=== PATIENT | male | born 1955 | race Caucasian/White ===

== ENCOUNTER 2023-02-19 19:54 | Inpatient (IN) | payer MEDICARE, MEDICAID, SELFPAY ==
[2023-02-19] VITALS (7 sets, daily range): BP systolic 158–194; BP diastolic 85–104; PULSE 96–117; RESP 22–24; TEMP 37.1; O2SAT 95–100; BMI 24.7
--- NOTE | 2023-02-19 20:20 | XRR_ITS ---
PROCEDURE INFORMATION: Exam: XR Chest Exam date and time: 02/19/2023 8:30 PM Age: 67 years old Clinical indication: Other: Weakness; Additional info: Cough TECHNIQUE: Imaging protocol: Radiologic exam of the chest. Views: 1 view. COMPARISON: 1. CR XR chest 1V [id number] 08/22/2016 1:[address] Cervical Spine wo* [id number] 06/05/2017 8:51 PM FINDINGS: Tubes, catheters and devices: There is a fixation wire in the posterior elements of the cervical spine. Lungs: Stable calcified granuloma in the right lower lobe. Lungs are clear bilaterally. Pleural spaces: No pleural effusion. No pneumothorax. Heart/Mediastinum: Stable mild enlargement of the cardiac silhouette. Mediastinal contours are unremarkable. Bones/joints: Degenerative changes in the spine and shoulders. Bones are diffusely osteopenic. Osseous findings are stable. XR/XR chest 1V portable [id number] IMPRESSION: 1. No acute cardiopulmonary process. 2. Incidental/nonacute findings are listed in the report.
--- NOTE | 2023-02-19 20:23 | W.ED.FALL ---
HPI - Fall General: Chief Complaint: Fall Stated Complaint: WEAKNESS Time Seen by Provider: 02/19/23 20:20 History of Present Illness: 67-year-old male presents emergency department after falling several times at home in the last 36 hours. EMS personnel state they came out to the house several times after being called by the patient's who has MS. EMS personnel state that the house is very unkept and the patient this evening was laying on the floor covered in feces. Patient does appear to be significantly unkept and malodorous. He is refusing to answer questions at present. Patient states that he does not want to talk to anyone. He has not refused to allow us to care for him at present. Review of Systems General: Reports: ROS unobtainable due to medical condition Physical Exam Narrative: EXAM NARRATIVE: Constitutional: Ill-appearing, unkept, malodorous, covered in feces. No acute distress at present. Alert and oriented-to person, place, time and situation. Head, eyes, ears, nose, mouth, throat: Normocephalic, atraumatic. Pupils-equal, round, reactive to light. No scleral icterus. Normal-appearing external ears. Normal appearing nasal turbinates, no drainage. No obvious oral lesions, posterior oropharynx without erythema or exudates. Neck: Supple, trachea is midline, no lymphadenopathy, no jugular venous distension, thyromegaly, or carotid bruits. Carotid upstrokes are brisk bilaterally. Lungs: clear to auscultation to all lung samano. Symmetrical rise and fall of chest, no obvious signs of increased work of breathing at present. Cardiac: Regular rate and rhythm, positive S1, S2. No murmurs, rubs or gallops that I can appreciate Abdomen: Soft, non-tender to palpation, normal active bowel sounds to all quadrants. No palpable masses, no organomegaly and abdominal bruits. Extremities: 2+ pulses in the upper extremities that are equal bilaterally, 2+ pulses in the lower extremities that are equal bilaterally. Non-edematous. Moves all extremities well, sensation to all extremities are noted. Skin: Warm, dry, intact. Course Vital Signs: Vital signs: Vital Signs Temperature 98.8 F 02/19/23 19:59 Pulse Rate 115 H 02/19/23 21:50 Respiratory Rate 23 H 02/19/23 21:50 Blood Pressure 173/100 02/19/23 21:50 Pulse Oximetry 97 02/19/23 21:50 Oxygen Delivery Me thod Room Air 02/19/23 21:50 MDM - Fall Medical Decision Making Physical exam completed and documented, I will obtain a CBC, CMP, CPK, cardiac enzymes, twelve-lead EKG a chest x-ray and urinalysis for evaluation. Lab Data I reviewed the patient's lab results. 02/19/23 20:50 02/19/23 20:50 Radiology Impressions Chest X-Ray 02/19/23 20:20 IMPRESSION: 1. No acute cardiopulmonary process. 2. Incidental/nonacute findings are listed in the report. Laboratory Results WBC 8.42 10^3/uL (3.29-11.43) 02/19/23 20:50 RBC 3.76 10^6/uL (3.85-5.65) L 02/19/23 20:50 Hgb 13.40 g/dL (11.27-16.99) 02/19/23 20:50 Hct 37.4 % (37-53) 02/19/23 20:50 MCV 99.5 fl (82-101) 02/19/23 20:50 MCH 35.6 pg (27-33) H 02/19/23 20:50 MCHC 35.8 g/dL (30-55) 02/19/23 20:50 RDW 12.2 % (12.1-15.1) 02/19/23 20:50 Plt Count 207 10^3/cmm (157-399) 02/19/23 20:50 MPV 8.8 fL (7.4-10.4) 02/19/23 20:50 Neut % (Auto) 81.0 % 02/19/23 20:50 Lymph % (Auto) 10.2 % 02/19/23 20:50 [place] % (Auto) 8.3 % 02/19/23 20:50 Eos % (Auto) 0.0 % 02/19/23 20:50 Baso % (Auto) 0.1 % 02/19/23 20:50 Neut # (Auto) 6.82 10^3/uL (1.8-7.7) 02/19/23 20:50 Lymph # (Auto) 0.9 10^3/uL (0.8-4.8) 02/19/23 20:50 [place] # (Auto) 0.7 10^3/uL (0.2-0.9) 02/19/23 20:50 Eos # (Auto) 0.0 10^3/uL (0.0-0.8) 02/19/23 20:50 Baso # (Auto) 0.0 10^3/uL (0.0-0.1) 02/19/23 20:50 Nucleated RBC % (auto) 0 % 02/19/23 20:50 Nucleated RBCs # 0.0 /100WBC 02/19/23 20:50 PT 13.40 SECONDS (12.1-14.9) 02/19/23 20:50 INR 0.99 (0.8-1.2) 02/19/23 20:50 APTT 26.3 SECONDS (23.9-36.7) 02/19/23 20:50 D-Dimer 1.99 ug/mLFEU (0-0.59) H 02/19/23 20:50 Sodium 126 mmol/L (136-145) L 02/19/23 20:50 Potassium 4.4 mmol/L (3.5-5.1) 02/19/23 20:50 Chloride 86 mmol/L (98-107) L 02/19/23 20:50 Carbon Dioxide 23 mmol/L (22-29) 02/19/23 20:50 Anion Gap 21.4 (5-19) H 02/19/23 20:50 BUN 17 mg/dL (8-23) 02/19/23 20:50 Creatinine 0.5 mg/dL (0.7-1.2) L 02/19/23 20:50 GFR Calculation 166.9 mL/min (90-130) H 02/19/23 20:50 Glucose 87 mg/dL (65-115) 02/19/23 20:50 POC Glucose 113 mg/dL (70-110) H 02/19/23 21:33 Calculated Osmolality 263 mOsm/kg (285-295) L 02/19/23 20:50 Lactic Acid 2.5 mmol/L (0.5-2.2) H 02/19/23 20:50 Calcium 9.0 mg/dL (8.5-10.5) 02/19/23 20:50 Magnesium 2.0 mg/dL (1.7-2.3) 02/19/23 20:50 Total Bilirubin 1.1 mg/dL (0.15-1.2) 02/19/23 20:50 AST 311 U/L (0-40) H 02/19/23 20:50 ALT 113 U/L (0-41) H 02/19/23 20:50 Alkaline Phosphatase 66 U/L (40-130) 02/19/23 20:50 Creatine Kinase 7145 U/L (39-308) H* 02/19/23 20:50 Troponin T Baseline 60 ng/L (0-15) H 02/19/23 20:50 NT-Pro-B Natriuret Pep 1631 pg/mL (0-125) H 02/19/23 20:50 Total Protein 6.5 g/dL (6.6-8.7) L 02/19/23 20:50 Albumin 3.9 g/dL (3.5-5.2) 02/19/23 20:50 Globulin 2.6 g/dL (1.3-4.6) 02/19/23 20:50 Procalcitonin 0.25 ng/mL (0-0.5) 02/19/23 20:50 Urine Color Dark yellow (Yellow) 02/19/23 21:35 Urine Appearance Hazy (CLEAR) A 02/19/23 21:35 Urine pH 5 (5-7) 02/19/23 21:35 Ur Specific [place] 1.015 (1.005-1.030) 02/19/23 21:35 Urine Protein Trace (Negative) 02/19/23 21:35 Urine Glucose (UA) Norm (Normal) 02/19/23 21:35 Urine Ketones 2+ (Negative) H 02/19/23 21:35 Urine Blood 2+ (Negative) H 02/19/23 21:35 Urine Nitrate Negative (Negative) 02/19/23 21:35 Urine Bilirubin 1+ (Negative) H 02/19/23 21:35 Urine Urobilinogen 1 mg/dL (Negative) H 02/19/23 21:35 Ur Leukocyte Esterase 2+ (Negative) H 02/19/23 21:35 Urine RBC 5-10 /hpf (0-2) H 02/19/23 21:35 Urine WBC 10-15 /hpf (0-5) H 02/19/23 21:35 Ur Squamous Epith Cells 0-4 /hpf (0-5) H 02/19/23 21:35 Amorphous Sediment Not Reportable 02/19/23 21:35 Urine Bacteria 1+ /hpf (NONE) H 02/19/23 21:35 Hyaline Casts Rare /lpf 02/19/23 21:35 Urine Mucus 2+ /hpf 02/19/23 21:35 All radiology interpretation(s) finalized by discharge Critical Care Time Critical Care Time: Critical Care Time: Yes Total Critical Care Time: 45 Attestation: This case had a high probability of a clinically significant, sudden, or life threatening deterioration of this patient's condition which required my full and direct attention, intervention and personal management. Discharge Plan Discharge Patient Disposition: Admitted As Inpatient Clinical Impression: Rhabdomyolysis, Acute hyponatremia, Adult failure to thrive, Acute UTI Condition: Stable Coding Level of Care Code ED Outsoles Channel Opener for [place] Alfaro
[2023-02-19 21:03] LABS: Basophils % 0.1 %; Hematocrit 37.4 % (37-53); Lymphocytes # 0.9 10^3/uL (0.8-4.8); Lymphocytes % 10.2 %; Mean Corpuscular HGB Conc 35.8 g/dL (30-55); Mean Corpuscular Hemoglobin 35.6 pg (27-33); Mean Corpuscular Volume 99.5 fl (82-101); Mean Platelet Volume 8.8 fL (7.4-10.4); Monocytes # 0.7 10^3/uL (0.2-0.9); Monocytes % 8.3 %; Neutrophils # 6.82 10^3/uL (1.8-7.7); Nucleated Red Blood Cells % 0 %; Platelet Count 207 10^3/cmm (157-399); Red Blood Count 3.76 10^6/uL (3.85-5.65); Red Cell Distribution Width 12.2 % (12.1-15.1); White Blood Count 8.42 10^3/uL (3.29-11.43)
[2023-02-19] MEDS: lactated ringers 1,000 ML 999 ML IV (21:08)
[2023-02-19 21:16] LABS: INR 0.99 (0.8-1.2); Partial Thromboplastin Time 26.3 SECONDS (23.9-36.7)
[2023-02-19 21:21] LABS: Lactic Sepsis W/Reflex 2.5 mmol/L (0.5-2.2)
--- NOTE | 2023-02-19 21:23 | ECG_ITS ---
[facility] Test Date: 2023-02-19 Pat Name: Barrett Leahy Department: Room: Gender: Male [place]: : 1955 Requested By: Eb Romero Order Number: [id number] Vinayak MD: Dejon Kruse M.D. Measurements Intervals [place] Rate: 107 P: 48 MN: 170 QRS: -2 QRSD: 93 T: 42 QT: 363 QTc: 486 Interpretive Statements Significant baseline artifact. SINUS TACHYCARDIA Compared to ECG 08/22/2016 13:49:37 Heart rate has increased Electronically Signed On 02-20-2023 16:58:34 MASS SPEC by Dejon Kruse M.D. [id number]
[2023-02-19 21:28] LABS: Troponin(5th) Baseline 60 ng/L (0-15)
[2023-02-19 21:35] LABS: NT Pro B Type Natriuretic Pept 1631 pg/mL (0-125); Procalcitonin 0.25 ng/mL (0-0.5)
[2023-02-19 21:37] LABS: Glucose Point of Care 113 mg/dL (70-110)
--- NOTE | 2023-02-19 21:43 | PM.HP ---
Providers/Chief Complaint Chief Complaint: WEAKNESS History of Present Illness Barrett Leahy is a 67 year old male who presents today with recurrent falls, patient is not a good historian cannot able to provide much history because he is not very cooperative, stating that he was trying to help his but he did not have any strength to walk he has been fallingQuite frequently, he drinks multiple cans of beer every day, last drink was today before he came to the ER,He has not noticed chest pain, nausea, vomiting endorsing symptoms of UTI, he has not noticed any fever, endorsing weakness lethargy and fatigue. He smokes on daily basis as well. He was on the floor for about 2 hours. In the ER he was diagnosed with hyponatremia, rhabdomyolysis, UTI, tachycardia dehydration Patient was covered in feces as per the EMS, house condition was very poor, Review of Systems Const: Reports: chills and change in weight Eyes: Denies: change in vision ENMT: Denies: throat pain Card: Denies: chest pain Resp: Denies: dyspnea GI: Denies: abdominal pain : Denies: flank pain Musc: Reports: back pain; Denies: neck pain Skin/Breast: Reports: rash and skin tenderness Neuro: Reports: frequent falls; Denies: headache(s) Medications/Allergies Allergies Allergy/AdvReac Type Severity Reaction Status Date / Time No Known Allergies Allergy Verified 02/19/23 20:05 Vitals/I&O/Wt Last Vital Signs Temp 98.8 F 02/19/23 19:59 Pulse 116 H 02/19/23 21:29 Resp 22 H 02/19/23 21:29 BP 175/88 02/19/23 21:29 Pulse Ox 95 02/19/23 21:29 O2 Del Method Room Air 02/19/23 21:29 Weight last 48 hrs Weight 85.275 kg Physical Exam Narrative: Unkept appearance GCS 15 Multiple skin ulcers Patient seems to have ischemic changes to bilateral lower extremities, cold, nonpurulent cellulitis, swelling Patient is awake and alert Able to tell me name, date of and name of the president, he knows he is in the hospital Mild tremors No new focal deficit Abdomen soft Does have old Tachycardia Dehydrated Data 02/19/23 20:50 02/19/23 20:50 A&P Assessment and plan (1) Acute hyponatremia: (2) Adult failure to thrive: (3) Rhabdomyolysis: (4) Acute UTI: (5) Alcohol abuse: Plan Alcohol abuse Start phenobarbital thiamine and folic acid Patient is alert and oriented Start thiamine and folic acid Multiple falls likely related to neuropathy: We will request physical therapy We will also request arterial duplex He does seem to have peripheral vascular disease changes Start aspirin and atorvastatin. Nonfocal neuro exam Check B12 and TSH Rhabdomyolysis: Start IV fluids check CPK in the morning Check drug screen Beer potomania Alcohol-related hyponatremia Currently getting IV fluids Monitor sodium Check serum and urine osmolarity Tachycardia likely due to dehydration Check D-dimer Patient was covered in feces Home conditions were very poor has multiple sclerosis Patient is stating that he is DNR/DNI he is awake alert seems to have capacity to make decision UTI requested on culture, start ceftriaxone Regular diet DVT prophylaxis on board Admit to ICU Check alcohol level Attestations Medical Necessity Statement*: More than 2 midnights anticipated Diagnoses Acute hyponatremia E87.1 Adult failure to thrive R62.7 Rhabdomyolysis M62.82 Acute UTI N39.0 Alcohol abuse F10.10
[2023-02-19 21:46] LABS: Alanine Aminotransferase 113 U/L (0-41); Albumin Level 3.9 g/dL (3.5-5.2); Alkaline Phosphatase 66 U/L (40-130); Anion Gap 21.4 (5-19); Aspartate Amino Transferase 311 U/L (0-40); Blood Urea Nitrogen 17 mg/dL (8-23); Carbon Dioxide 23 mmol/L (22-29); Chloride 86 mmol/L (98-107); Globulin 2.6 g/dL (1.3-4.6); Glomerular Filtration Rate 166.9 mL/min (90-130); Glucose 87 mg/dL (65-115); Osmolality Calculated 263 mOsm/kg (285-295); Potassium 4.4 mmol/L (3.5-5.1); Sodium 126 mmol/L (136-145); Total Bilirubin 1.1 mg/dL (0.15-1.2); Total Protein 6.5 g/dL (6.6-8.7)
[2023-02-19 21:58] LABS: D Dimer 1.99 ug/mLFEU (0-0.59)
[2023-02-19 22:01] LABS: Creatine Phosphokinase 7145 U/L (39-308)
[2023-02-19 22:09] LABS: Add Urine Microscopic? YES; Bilirubin Urine 1+ (Negative); Blood Urine 2+ (Negative); Glucose Urine UA Norm (Normal); Ketones Urine 2+ (Negative); Leukocyte Esterase Urine 2+ (Negative); Nitrate Urine Negative (Negative); Protein Urine Trace (Negative); Specific Gravity, Urine 1.015 (1.005-1.030); Urine Appearance Hazy (CLEAR); Urine Color Dark Yellow (Yellow); Urobilinogen Urine 1 mg/dL (Negative); pH Urine 5 (5-7)
[2023-02-19 22:11] LABS: Bacteria Urine 1+ /hpf; Hyaline Casts Urine RARE /lpf; Mucus Urine 2+ /hpf; Squamous Epithelial Cell Urine 0-4 /hpf (0-5)
[2023-02-19 22:12] LABS: Add Urine Culture? Yes
[2023-02-19] MEDS: sodium chloride 0.9% 1,000 ML 999 ML IV (22:12)
--- NOTE | 2023-02-19 22:16 | PC.NURSE ---
Patient arrived to ED by EMS. Patient clothing is saturated with stool, dirt and other containments. Patient has had recent bowel movement in pants. Hair is matted and unkept. Patient is able to move extremities however is difficult to move and appears contractured. Patient has sores over various places of her body including feet, back, buttocks, and scrotum. Scrotum is red and inflammed. Patient has wound in various sizes and stages of healing. Patient nails are unkept and appear to have fecal matter under his nails. Patient is poor historian to his current condition and evades questioning about conditions at home. Reports he lives with girlfriend however she has MS. 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 Registration reported friends dropped clothing off (one pair of shorts) and stated they were not staying. It is unknown when patient has last been up walking or moved. Patient states he could not recall this information. It is unknown condition of the house or who is caring for this individual or his girlfriend.
--- NOTE | 2023-02-19 22:22 | ECG_ITS ---
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 Measurements Intervals [place] Rate: 109 P: 53 TX: 162 QRS: 8 QRSD: 102 T: 59 QT: 358 QTc: 482 Interpretive Statements SINUS TACHYCARDIA intermittent PVCs MINIMAL VOLTAGE CRITERIA FOR LVH, CONSIDER NORMAL VARIANT [MEETS CRITERIA IN SEPTAL MYOCARDIAL INFARCTION , PROBABLY OLD [40+ ms Q WAVE IN V1/V2] Compared to ECG 02/19/2023 21:23:24 PVCs now present Electronically Signed On 02-20-2023 17:17:45 ADMITTING SUPERVISOR by Dejon Kruse M.D. [email or web address].[employer]/store/[id number]
[2023-02-19 22:46] LABS: Reflex Lactate Order REFLEX LACTIC ORDERD
--- NOTE | 2023-02-19 23:02 | PC.NURSE ---
Neglect report has been filed. [id number]
[2023-02-19] MEDS: cefTRIAXone 1,000 MG in sodium chloride 0.9% (plus) 50 ML 100 MG IV (23:08)
[2023-02-19 23:09] LABS: Amphetamines Screen Urine Negative (Negative); Barbiturates Screen Urine Negative (Negative); Benzodiazepines Screen Urine Negative (Negative); Cocaine Screen Urine Negative (Negative); Opiate Screen Urine Negative (Negative); PCP Screen Urine Negative (Negative); THC Screen Urine Positive (Negative)
[2023-02-19 23:50] LABS: Troponin 5 2HR 64.14 ng/L (0-15)
[2023-02-19 23:51] LABS: Lactic Acid level (Lactate) 1.5 mmol/L (0.5-2.2)
[2023-02-19 23:52] LABS: Troponin 5 2HR Delta 4.14 ABS# (0-10)
[2023-02-20] VITALS (97 sets, daily range): BP systolic 104–211; BP diastolic 55–176; PULSE 77–120; RESP 13–29; TEMP 36.6–36.9; O2SAT 65–100; BMI 24.5
[2023-02-20 00:31] LABS: Vitamin B12 282 pg/mL (232-1245)
--- NOTE | 2023-02-20 00:37 | USCV_ITS ---
Barrett Leahy Age: 67 Gender: M : 1955 Exam Date: 02/20/2023 01:54 Ordering Phys: Jayna Baird MD Technologist: SATYA Exam Location: [facility] [place] Indication: cold extremity. Bilateral, badly infected legs with multiple open sores. Patient is confused, shaking constantly in ICU-2 Risk Factors: unknown Previous Vascular Surgery: unknown RIGHT LEFT BP: 164.0 / 100.00 BP: 190.0/ 146.00 0 0 Waveform Velocity (cm/s) Velocity (cm/s) Waveform Triphasic 156.9 Iliac Prox 158.8 Triphasic Triphasic 149.1 Iliac Mid 172.9 Triphasic Triphasic 172.5 Iliac Distal 134.7 Triphasic Biphasic 199.0 JIG MILL OPERATOR 149.1 Triphasic Biphasic 138.0 SFA Prox 158.8 Biphasic Biphasic 177.1 SFA Mid 160.8 Biphasic Biphasic 119.6 SFA Dist 142.8 Biphasic Biphasic 167.8 POP 148.8 Biphasic Biphasic 124.3 PSYCHOLOGIST PERSONNEL 108.6 Biphasic Biphasic 68.4 DPA 1.0 SARAH 1.0 FINDINGS Moderate heterogenous plaques in the right mid to distal SFA and mild to moderate plaques at the left mid to distal SFA. Resting SARAH 1.0 on both sides. No Doppler flow signals in the left dorsalis pedis CONCLUSIONS 1. Normal resting ABIs bilaterally, suggesting no significant arterial obstruction. 2. Moderate heterogenous plaques in the mid and distal SFA bilaterally 3. Possible occlusion of the dorsalis pedis artery on the left side. No similar previous studies are available for comparison Dr Lon Benítez MD [facility] (Electronically Signed) Final Date: 20 February 2023 15:05 S
[2023-02-20 01:07] LABS: Glucose Point of Care 96 mg/dL (70-110)
[2023-02-20] MEDS: enoxaparin 40 mg/0.4 mL Syringe SUBCUT (01:20)
[2023-02-20] MEDS: sodium chloride 0.9% 1,000 ML 100 ML IV ×2 (01:57→17:04)
[2023-02-20 02:28] LABS: Basophils % 0.1 %; Hematocrit 34.1 % (37-53); Lymphocytes # 1.3 10^3/uL (0.8-4.8); Lymphocytes % 16.7 %; Mean Corpuscular HGB Conc 34.9 g/dL (30-55); Mean Corpuscular Hemoglobin 35.3 pg (27-33); Mean Corpuscular Volume 101.2 fl (82-101); Mean Platelet Volume 8.6 fL (7.4-10.4); Monocytes # 0.8 10^3/uL (0.2-0.9); Monocytes % 10.3 %; Neutrophils # 5.71 10^3/uL (1.8-7.7); Neutrophils % 72.6 %; Nucleated Red Blood Cells % 0 %; Platelet Count 156 10^3/cmm (157-399); Red Blood Count 3.37 10^6/uL (3.85-5.65); Red Cell Distribution Width 12.5 % (12.1-15.1); White Blood Count 7.86 10^3/uL (3.29-11.43)
[2023-02-20] MEDS: vancomycin 2,000 MG/400 ML PIGGYBACK 200 MG IV (02:39)
[2023-02-20 02:53] LABS: Troponin 5 6HR 74.83 ng/L (0-15)
[2023-02-20 02:55] LABS: Troponin 5 6HR Delta 14.83 ng/L (0-12)
[2023-02-20] MEDS: hyDRALAzine 20 mg/mL INJ 1 mL (04:00)
[2023-02-20 08:20] LABS: Alanine Aminotransferase 101 U/L (0-41); Albumin Level 3.3 g/dL (3.5-5.2); Alkaline Phosphatase 56 U/L (40-130); Aspartate Amino Transferase 273 U/L (0-40); Blood Urea Nitrogen 16 mg/dL (8-23); Calcium 8.7 mg/dL (8.5-10.5); Carbon Dioxide 21 mmol/L (22-29); Chloride 91 mmol/L (98-107); Globulin 2.7 g/dL (1.3-4.6); Glomerular Filtration Rate 166.9 mL/min (90-130); Glucose 94 mg/dL (65-115); Magnesium 1.9 mg/dL (1.7-2.3); Osmolality Calculated 267 mOsm/kg (285-295); Phosphorus 2.4 mg/dL (2.5-4.5); Sodium 128 mmol/L (136-145); Thyroid Stimulating Hormone 2.35 uIU/mL (0.27-4.20); Total Bilirubin 0.9 mg/dL (0.15-1.2); Vitamin B12 289 pg/mL (232-1245)
[2023-02-20 08:28] LABS: Estmated Average Glucose 85; Hemoglobin A1C 4.6 % (4.0-6.0)
[2023-02-20] MEDS: folic acid 1 mg Tablet PO (08:29)
[2023-02-20] MEDS: sennosides-docusate Tablet 1 TAB PO (08:29)
[2023-02-20] MEDS: PHENobarbital 32.4 mg Tablet 97.2 MG PO ×2 (08:29→15:06)
[2023-02-20] MEDS: thiamine 100 mg Tablet PO (08:29)
--- NOTE | 2023-02-20 09:03 | PC.PHAR ---
Addendum entered by Anjelica Davies 02/20/23 09:04: no meds pull up on ext med history Original Note: pt states he takes care of his own medications-pt states he takes no prescription medications pt states only takes otc ibuprofen prn-pt unsure of what pharmacy he would use told pt about meds to beds pt still unsure what pharmacy
[2023-02-20 09:04] LABS: Anion Gap 20.3 (5-19); Potassium 4.3 mmol/L (3.5-5.1)
[2023-02-20 09:40] LABS: Partial Thromboplastin Time 51.1 SECONDS (23.9-36.7)
[2023-02-20] MEDS: heparin drip 25,000 UNIT/500 ML PREMIX 24 UNIT IV (11:41)
--- NOTE | 2023-02-20 16:26 | P.PN_ITS ---
Subjective 2 Subjective: Overnight labs and H&P reviewed. Patient extremely disheveled. He is alert awake oriented. Overall appears to be malnourished and dehydrated. Arterial duplex without any significant occlusion. Medications: Reviewed: Yes Vitals/I&O/Wt Last Vital Signs Temp 98 F 02/20/23 00:30 Pulse 99 02/20/23 16:15 Resp 21 H 02/20/23 12:00 BP 169/78 02/20/23 16:15 Pulse Ox 93 02/20/23 16:15 O2 Del Method Room Air 02/20/23 00:45 02/20/23 02/20/23 02/20/23 06:59 14:59 22:59 Intake Total 2450 / 2450 480 / 480 Balance 2450 / 2450 480 / 480 Weight last 48 hrs Weight 89 kg Weight 85.275 kg Physical Exam 2 Narrative: General: No acute distress, AO x3 HEENT: PERRLA, pupils bilaterally equal and reactive, pallors not present Chest: Normal vesicular breath sounds, no added sounds, equal good air entry bilaterally CVS: S1-S2 regular, no murmurs, no tachycardia, no gallops, no rubs Abdomen: Soft, nontender, no organomegaly, bowel sounds present Neuro: No focal deficits, no facial deformity, AO x3, power 5/5 in all limbs Data 02/21/23 04:45 02/20/23 16:52 Other Labs: Date of Service: 02/20/23 Procedure(s): [place] [id number] CONCLUSIONS 1. Normal resting ABIs bilaterally, suggesting no significant arterial obstruction. 2. Moderate heterogenous plaques in the mid and distal SFA bilaterally 3. Possible occlusion of the dorsalis pedis artery on the left side. No similar previous studies are available for comparison Micro: Microbiology 02/20/23 01:51 Gram Stain - Final Groin A&P Assessment and plan (1) Acute hyponatremia: (2) Adult failure to thrive: (3) Rhabdomyolysis: (4) Acute UTI: (5) Alcohol abuse: Plan # Multiple falls of unclear nature Not syncopal episodes Patients states symptoms started one week ago with increasing weakness CPk elevated suggesting rhabdomyolysis B/L LE multipel small ulcers which may represent small vessel vasculitis vs small vessel PAD. Arterial duplex with normal SARAH B/L, left dorsal pedis possible occlusion Monitor for signs of gangrene TSH 2.3 WNL, low normal B12 # Cellilitis, right foot noted to be swollen and erythematous Check blood cx d/c Ceftriaxone start zosyn and vancomycin empirically monitor for improvement # dorsalis pedis occlusion continue heparin drip for now # Rhabdomyolysis: continue IV fluids drug screen + marijuana # monitor for alcohol withdrawal Ciwa monitoring Tachycardia likely due to dehydration Check D-dimer # Patient was covered in feces Home conditions were very poor has multiple sclerosis # UTI requested on culture, zosyn and vancomycinto cover Regular diet DVT prophylaxis : on heparin drip Attestations 2 Medical Necessity Statement*: iv abx, blood cx , CIWA monitoring Coding Level of Care Code Acute Code for [facility] Diagnoses Acute hyponatremia E87.1 Adult failure to thrive R62.7 Rhabdomyolysis M62.82 Acute UTI N39.0 Alcohol abuse F10.10
[2023-02-20] MEDS: piperacillin-tazobactam 3.375 GM in sodium chloride 0.9% (plus) 50 ML IV (16:44)
[2023-02-20 17:19] LABS: Partial Thromboplastin Time 45.7 SECONDS (23.9-36.7)
[2023-02-20 17:23] LABS: Alanine Aminotransferase 109 U/L (0-41); Albumin Level 3.3 g/dL (3.5-5.2); Alkaline Phosphatase 53 U/L (40-130); Anion Gap 13.1 (5-19); Aspartate Amino Transferase 262 U/L (0-40); Blood Urea Nitrogen 13 mg/dL (8-23); Calcium 8.4 mg/dL (8.5-10.5); Carbon Dioxide 27 mmol/L (22-29); Chloride 94 mmol/L (98-107); Globulin 2.6 g/dL (1.3-4.6); Glomerular Filtration Rate 135.2 mL/min (90-130); Glucose 134 mg/dL (65-115); Osmolality Calculated 274 mOsm/kg (285-295); Potassium 3.1 mmol/L (3.5-5.1); Sodium 131 mmol/L (136-145); Total Bilirubin 0.8 mg/dL (0.15-1.2); Total Protein 5.9 g/dL (6.6-8.7)
[2023-02-20 18:19] LABS: Adenovirus Not Detected (NOT DETECT); Chlamydia Pneumoniae Not Detected (NOT DETECT); Coronavirus 229E,HKU1,NL63,OC4 Not Detected (NOT DETECT); Human Metapneumovirus Not Detected (NOT DETECT); Human Rhinovirus/Enterovirus Not Detected (NOT DETECT); Influenza A Not Detected (NOT DETECT); Influenza A H1 Not Detected (NOT DETECT); Influenza A H1-2009 Not Detected (NOT DETECT); Influenza A H3 Not Detected (NOT DETECT); Influenza B Not Detected (NOT DETECT); Mycoplasma Pneumoniae Not Detected (NOT DETECT); Parainfluenza Virus Type 1 Not Detected (NOT DETECT); Parainfluenza Virus Type 2 Not Detected (NOT DETECT); Parainfluenza Virus Type 3 Not Detected (NOT DETECT); Parainfluenza Virus Type 4 Not Detected (NOT DETECT); Respiratory Syncytial Virus A Not Detected (NOT DETECT); Respiratory Syncytial Virus B Not Detected (NOT DETECT); SARS-COV-2 Not Detected (NOT DETECT)
[2023-02-20] MEDS: vancomycin 1,250 MG/250 ML PIGGYBACK 200 MG IV (22:02)
--- NOTE | 2023-02-20 23:07 | PC.NURSE ---
Physician Communication Patient currently receiving heparin IV while lovenox SUBQ order still active. Furthermore, patient's blood pressure remaining elevated ranging from 170-196 systolic, 66-[address] Baird contacted and orders received for the following: discontinue lovenox order, start 20 mg lisinopril PO daily now as well as start 10 mg amlodipine PO daily now. See MAR for details. Additionally, wound care orders not active. Orders received from Dr. Baird to leave open to air until further notice.
[2023-02-20 23:22] LABS: Partial Thromboplastin Time 61.6 SECONDS (23.9-36.7)
[2023-02-20 23:24] LABS: Glucose Point of Care 122 mg/dL (70-110)
[2023-02-20] MEDS: lisinopril 20 mg Tablet PO (23:36)
[2023-02-20] MEDS: amlodipine 10 mg Tablet PO (23:36)
[2023-02-21] VITALS (59 sets, daily range): BP systolic 110–183; BP diastolic 60–125; PULSE 81–107; RESP 14–55; TEMP 36.2–37.1; O2SAT 69–100; BMI 24.5
[2023-02-21] MEDS: piperacillin-tazobactam 3.375 GM in sodium chloride 0.9% (plus) 50 ML IV ×3 (00:31→17:09)
--- NOTE | 2023-02-21 00:37 | USCV_ITS ---
Barrett Leahy Age: 67 Gender: M : 1955 Exam Date: 02/21/2023 08:21 Ordering Phys: Jayna Baird MD Technologist: Dewey Urbano [place] [facility] [place]: NSTEMI BP: 170 / 99 HR: 85 Rhythm: Sinus Technical Quality: Adequate MEASUREMENTS (Male / Female) Normal Values 2D ECHO LV Diastolic Diameter PLAX 3.5 cm 4.2 - 5.9 / 3.9 - 5.3 cm LV Systolic Diameter PLAX 2.3 cm IVS Diastolic Thickness 1.5 cm 0.6 - 1.0 / 0.6 - 0.9 cm IVS Systolic Thickness 1.8 cm LVPW Diastolic Thickness 1.3 cm 0.6 - 1.0 / 0.6 - 0.9 cm LVPW Systolic Thickness 1.8 cm LVOT Diameter 2.0 cm LV Ejection Fraction 2D Teich 66.1 % LV Ejection Fraction MOD 2C 62.3 % LV Ejection Fraction 2C AL 64.0 % LA Diameter 3.5 cm IVC Diameter 1.6 cm M-MODE Aortic Annulus Diameter 3.4 cm LA Ao Ratio MM 1.2 MV E Point Septal Separation 1.0 cm DOPPLER AV Peak Velocity 281.0 cm/s LVOT Peak Velocity 98.0 cm/s AV Area Cont Eq vti 1.4 cm squared AV Area Cont Eq pk 1.1 cm squared MV Area PHT 3.2 cm squared Mitral E to A Ratio 0.8 MV E' Velocity 39.0 cm/s Mitral E to MV E' Ratio 11.9 Mitral E to LV E' Lateral Ratio 10.7 Mitral E to LV E' Septal Ratio 13.7 TR Peak Velocity 160.0 cm/s TR Peak Gradient 10.2 mmHg TV Peak E Velocity 110.0 cm/s Right Atrial Pressure 3.0 mmHg Pulmonary Artery Systolic Pressu 13.2 mmHg FINDINGS Left Ventricle Mild left ventricular hypertrophy. Normal left ventricular size, systolic function and wall thickness, with no regional wall motion abnormalities. Left ventricular ejection fraction is estimated at 65%. Grade 1 diastolic dysfunction. Right Ventricle Normal right ventricular size and systolic function. Right Atrium Normal right atrial size. Left Atrium Normal left atrial size. Mitral Valve Thickened mitral valve. Trace mitral valve regurgitation. Aortic Valve Thickened aortic valve. Aortic valve sclerosis. No aortic valve stenosis. Mild aortic regurgitation. Tricuspid Valve Structurally normal tricuspid valve. Trace tricuspid valve regurgitation. Pulmonic Valve Structurally normal pulmonic valve. Trace pulmonary valve regurgitation. Pericardium No pericardial effusion. Aorta Normal size aortic root and proximal ascending aorta. IVC Normal IVC dimension with >50% respiratory change of the inferior vena cava. CONCLUSIONS Mild concentric LVH. Normal LV systolic function. Estimated LVEF normal 65%. Normal chamber sizes. Thickened sclerotic aortic valve, however no significant stenosis (mean AVPG 15 mmHg). Mild aortic regurgitation Normal right heart and pulmonary pressures. Dejon Kruse MD (Electronically Signed) Final Date: 21 February 2023 12:31 S
[2023-02-21] MEDS: heparin drip 25,000 UNIT/500 ML PREMIX 26 UNIT IV (02:30)
--- NOTE | 2023-02-21 02:50 | PC.NURSE ---
Nicotene Patch, Glies Patient found to have incontinent episode, linens soaked in urine and unable to be measured. Additionally, patient requesting nicotene patch. Dr. Baird contacted; orders received for a one time dose nicotene patch as well as to place a giles catheter.
[2023-02-21] MEDS: sodium chloride 0.9% 1,000 ML 100 ML IV ×2 (03:24→13:15)
[2023-02-21] MEDS: nicotine 14 mg Patch 1 PATCH TRANSDERMA (03:30)
[2023-02-21] MEDS: vancomycin 1,250 MG/250 ML PIGGYBACK 200 MG IV ×3 (05:58→21:19)
[2023-02-21 06:00] LABS: Basophils % 0.2 %; Eosinophils % 0.2 %; Hematocrit 32.7 % (37-53); Lymphocytes # 1.1 10^3/uL (0.8-4.8); Lymphocytes % 19.8 %; Mean Corpuscular HGB Conc 33.9 g/dL (30-55); Mean Corpuscular Hemoglobin 35.4 pg (27-33); Mean Corpuscular Volume 104.1 fl (82-101); Mean Platelet Volume 8.7 fL (7.4-10.4); Monocytes # 0.5 10^3/uL (0.2-0.9); Neutrophils # 4.09 10^3/uL (1.8-7.7); Neutrophils % 71.5 %; Nucleated Red Blood Cells % 0 %; Platelet Count 129 10^3/cmm (157-399); Red Blood Count 3.14 10^6/uL (3.85-5.65); Red Cell Distribution Width 12.6 % (12.1-15.1); White Blood Count 5.72 10^3/uL (3.29-11.43)
[2023-02-21 06:11] LABS: Partial Thromboplastin Time 61.6 SECONDS (23.9-36.7)
--- NOTE | 2023-02-21 09:11 | PC.SOCIAL ---
IMM Update Pg.2 of IMM Updated and reviewed with patient. Copy provided to patient, initialed and dated copy in chart.
[2023-02-21] MEDS: amlodipine 10 mg Tablet PO (10:20)
[2023-02-21] MEDS: folic acid 1 mg Tablet PO (10:20)
[2023-02-21] MEDS: multivitamin therapeutic Tablet 1 TAB PO (10:21)
[2023-02-21] MEDS: thiamine 100 mg Tablet PO (10:21)
[2023-02-21] MEDS: sennosides-docusate Tablet 1 TAB PO (10:22)
[2023-02-21] MEDS: lisinopril 20 mg Tablet PO (10:22)
--- NOTE | 2023-02-21 12:59 | PC.NURSE ---
0700 Bedside report from Negrita done, worklist not checked off., She was giving po med at time of bedside report.
[2023-02-21 15:31] LABS: Partial Thromboplastin Time 48.1 SECONDS (23.9-36.7)
--- NOTE | 2023-02-21 18:02 | USCV_ITS ---
Barrett Leahy Age: 67 Gender: M : 1955 Exam Date: 02/21/2023 18:30 Ordering Phys: Melodie Glover MD Technologist: SATYA Exam Location: [facility] – [place] Indication: BLE edema and ulcerations. No history of DVT per patient. HISTORY: BLE edema and ulcerations. No history of DVT per patient. PROCEDURES: Venous duplex imaging was performed in bilateral lower extremities. The following venous structures were evaluated: common femoral vein, profunda vein, proximal portion of the greater saphenous vein, superficial femoral vein, and the popliteal vein. In addition, the posterior tibial veins were evaluated. Serial compression, augmentation maneuvers, and spectral Doppler flow evaluation were performed, which were normal. Bilaterally, the common femoral, superficial femoral, profunda femoral, popliteal, posterior tibial, and greater saphenous veins were identified and interrogated in the standard fashion. These veins were found to be easily compressible with spontaneous blood flow. No evidence of thrombus noted. CONCLUSIONS No evidence of right lower extremity DVT. No evidence of left lower extremity DVT. Walter Posadas MD (Electronically Signed) Final Date: 22 February 2023 09:35 S
--- NOTE | 2023-02-21 18:17 | P.PN_ITS ---
Subjective 2 Subjective: no acute interim events, pending cx Medications: Reviewed: Yes Vitals/I&O/Wt Last Vital Signs Temp 98.7 F 02/21/23 16:00 Pulse 100 02/21/23 18:00 Resp 14 02/21/23 18:00 BP 127/61 02/21/23 18:00 Pulse Ox 95 02/21/23 18:00 O2 Del Method Room Air 02/21/23 01:15 02/21/23 02/21/23 02/21/23 06:59 14:59 22:59 Intake Total 1765.883 / 3828.800 1735 / 1735 180 / 1915 Output Total 875 / 1000 350 / 350 300 / 650 Balance 890.883 / 2828.800 1385 / 1385 -120 / 1265 Weight last 48 hrs Weight 89 kg Weight 89 kg Weight 85.275 kg Physical Exam 2 Narrative: General: No acute distress, AO x3 HEENT: PERRLA, pupils bilaterally equal and reactive, pallors not present Chest: Normal vesicular breath sounds, no added sounds, equal good air entry bilaterally CVS: S1-S2 regular, no murmurs, no tachycardia, no gallops, no rubs Abdomen: Soft, nontender, no organomegaly, bowel sounds present Neuro: No focal deficits, no facial deformity, AO x3, power 5/5 in all limbs Data 02/22/23 02:50 02/21/23 23:48 Micro: Microbiology 02/20/23 16:52 Blood Culture - Preliminary Blood NEGATIVE TO DATE 02/20/23 16:42 Blood Culture - Preliminary Blood NEGATIVE TO DATE 02/20/23 01:51 Gram Stain - Final Groin Wound Culture - Preliminary 02/19/23 21:35 Urine Culture - Final Urine,Clean Catch A&P Assessment and plan (1) Acute hyponatremia: (2) Adult failure to thrive: (3) Rhabdomyolysis: (4) Acute UTI: (5) Alcohol abuse: Plan # Multiple falls of unclear nature Not syncopal episodes Patients states symptoms started one week ago with increasing weakness CPk elevated suggesting rhabdomyolysis B/L LE multipel small ulcers which may represent small vessel vasculitis vs small vessel PAD. Arterial duplex with normal SARAH B/L, left dorsal pedis possible occlusion Monitor for signs of gangrene TSH 2.3 WNL, low normal B12 # Cellilitis, right foot noted to be swollen and erythematous Check blood cx continue zosyn and vancomycin empirically monitor for improvement # dorsalis pedis occlusion continue heparin drip for now # Rhabdomyolysis: continue IV fluids drug screen + marijuana # monitor for alcohol withdrawal Ciwa monitoring Tachycardia likely due to dehydration Check D-dimer # Patient was covered in feces Home conditions were very poor has multiple sclerosis # UTI requested on culture, zosyn and vancomycinto cover Regular diet DVT prophylaxis : on heparin drip Attestations 2 Medical Necessity Statement*: continue heparin drip and iv abx Coding Level of Care Code Acute Code for [facility] Fw Diagnoses Acute hyponatremia E87.1 Adult failure to thrive R62.7 Rhabdomyolysis M62.82 Acute UTI N39.0 Alcohol abuse F10.10
[2023-02-21] MEDS: potassium chloride ER 20 mEq Tablet 40 MEQ PO (20:35)
[2023-02-21 20:52] LABS: Vancomycin Trough 18.8 ug/mL (10-15)
[2023-02-22] VITALS (13 sets, daily range): BP systolic 147–180; BP diastolic 71–106; PULSE 73–109; RESP 14–20; TEMP 36.3–36.4; O2SAT 90–100
[2023-02-22 00:20] LABS: Alanine Aminotransferase 95 U/L (0-41); Albumin Level 3.1 g/dL (3.5-5.2); Alkaline Phosphatase 67 U/L (40-130); Anion Gap 14.2 (5-19); Aspartate Amino Transferase 171 U/L (0-40); Blood Urea Nitrogen 9 mg/dL (8-23); Calcium 8.2 mg/dL (8.5-10.5); Carbon Dioxide 25 mmol/L (22-29); Chloride 97 mmol/L (98-107); Globulin 2.7 g/dL (1.3-4.6); Glomerular Filtration Rate 215.9 mL/min (90-130); Glucose 103 mg/dL (65-115); Osmolality Calculated 275 mOsm/kg (285-295); Potassium 3.2 mmol/L (3.5-5.1); Sodium 133 mmol/L (136-145); Total Bilirubin 0.6 mg/dL (0.15-1.2); Total Protein 5.8 g/dL (6.6-8.7)
[2023-02-22] MEDS: sodium chloride 0.9% 1,000 ML 100 ML IV ×3 (00:34→22:10)
[2023-02-22] MEDS: piperacillin-tazobactam 3.375 GM in sodium chloride 0.9% (plus) 50 ML IV ×3 (00:34→17:24)
[2023-02-22 00:39] LABS: Creatine Phosphokinase 2414 U/L (39-308)
[2023-02-22 03:45] LABS: Basophils % 0.2 %; Eosinophils % 0.2 %; Hematocrit 31.5 % (37-53); Lymphocytes # 0.8 10^3/uL (0.8-4.8); Lymphocytes % 15.9 %; Mean Corpuscular Hemoglobin 35.5 pg (27-33); Mean Corpuscular Volume 104.7 fl (82-101); Monocytes # 0.5 10^3/uL (0.2-0.9); Monocytes % 10.3 %; Neutrophils # 3.66 10^3/uL (1.8-7.7); Neutrophils % 72.8 %; Nucleated Red Blood Cells % 0 %; Platelet Count 130 10^3/cmm (157-399); Red Blood Count 3.01 10^6/uL (3.85-5.65); Red Cell Distribution Width 12.8 % (12.1-15.1); White Blood Count 5.03 10^3/uL (3.29-11.43)
[2023-02-22] MEDS: acetaminophen 500 mg Tablet PO (03:51)
[2023-02-22] MEDS: vancomycin 1,250 MG/250 ML PIGGYBACK 200 MG IV ×3 (06:32→20:11)
[2023-02-22] MEDS: amlodipine 10 mg Tablet PO (08:55)
[2023-02-22] MEDS: sennosides-docusate Tablet 1 TAB PO (08:55)
[2023-02-22] MEDS: multivitamin therapeutic Tablet 1 TAB PO (08:55)
[2023-02-22] MEDS: thiamine 100 mg Tablet PO (08:55)
[2023-02-22] MEDS: folic acid 1 mg Tablet PO (08:55)
[2023-02-22] MEDS: lisinopril 20 mg Tablet 40 MG PO (08:55)
[2023-02-22 13:40] LABS: COMPLEMENT COMPONENT C3C 86 mg/dL (82-185); COMPLEMENT COMPONENT C4C 14 mg/dL (15-53)
[2023-02-22 16:10] LABS: ANA SCREEN, IFA NEGATIVE (NEGATIVE)
--- NOTE | 2023-02-22 16:56 | PM.PN ---
Subjective Subjective: no acute interim events. BP controlled . d/c heparin drip . worked with PT Medications: Reviewed: Yes Vitals/I&O/Wt Last Vital Signs Temp 97.6 F 02/22/23 08:58 Pulse 87 02/22/23 16:00 Resp 17 02/22/23 11:45 BP 180/77 02/22/23 16:00 Pulse Ox 91 02/22/23 16:00 O2 Del Method Room Air 02/22/23 16:00 02/22/23 02/22/23 02/22/23 06:59 14:59 22:59 Intake Total 1300 / 3505 1740 / 1740 250 / 1990 Output Total 1049 / 1979 925 / 925 Balance 250 / 1525 815 / 815 250 / 1065 Weight last 48 hrs Weight 93 kg Weight 89 kg Physical Exam Narrative: General: No acute distress, AO x3 HEENT: PERRLA, pupils bilaterally equal and reactive, pallors not present Chest: wheezing to ausculotation B/L CVS: S1-S2 regular, no murmurs, no tachycardia, no gallops, no rubs Abdomen: Soft, nontender, no organomegaly, bowel sounds present Neuro: No focal deficits, no facial deformity, AO x3, power 5/5 in all limbs Extremities: Multiple scabs present over lower extremities. Area of developing dry gangrene over left toe. Urinary Catheter Management: Cruz: Cath Placed During This Visit: yes Reason for Continuing Indwelling Catheter: Accurate Measurement of Urinary Output in Critically Ill Patients Urinary Catheter Date of Insertion: 02/21/23 Urinary Catheter Time of Insertion: 20:00 Data 02/22/23 02:50 02/21/23 23:48 Micro: Microbiology 02/20/23 16:52 Blood Culture - Preliminary Blood NEGATIVE TO DATE 02/20/23 16:42 Blood Culture - Preliminary Blood NEGATIVE TO DATE 02/20/23 01:51 Gram Stain - Final Groin Wound Culture - Preliminary A&P Assessment and plan (1) Adult failure to thrive: (2) Rhabdomyolysis: (3) Alcohol abuse: (4) Cellulitis: (5) Gangrene: (6) Multiple falls: Plan # Multiple falls of unclear nature Not syncopal episodes Patients states symptoms started one week ago with increasing weakness, however his given level of deconditioning suspect this has been much longer. He has multiple bruises all over his lower extremities. Some appear to be rug badillo. CPK elevated suggesting rhabdomyolysis B/L LE multiple small ulcers which may represent small vessel vasculitis vs small vessel PAD. Arterial duplex with normal SARAH B/L, left dorsal pedis possible occlusion PT assessment appreciated , total dependence for sit to stand # Cellulitis appears to be improving Right foot was worse than left erythema, warmth improving negative blood cx thus far continue zosyn and vancomycin empirically monitor for improvement d/c heparin drip # dorsalis pedis occlusion likely chronic, monitor for gangrene continue heparin drip # Rhabdomyolysis: continue IVF # monitor for alcohol withdrawal CIWA monitoring Tachycardia likely due to dehydration # possible underlying COPD with diffuse wheezing Patient is a daily smoker. Start DuoNebs every 6 hours as a scheduled medication Add nicotine patch. # UTI: unlikely now, cx with urogenital robyn. Regular diet DVT prophylaxis : on heparin drip Attestations Medical Necessity Statement*: continue iv abx, continued therapy Coding Level of Care Code Acute Code for [facility] Fwd Diagnoses Adult failure to thrive R62.7 Rhabdomyolysis M62.82 Alcohol abuse F10.10 Cellulitis L03.90 Gangrene I96 Multiple falls R29.6
[2023-02-22] MEDS: hyDRALAzine 25 mg Tablet PO ×2 (17:25→20:06)
[2023-02-23] VITALS (9 sets, daily range): BP systolic 142–173; BP diastolic 65–75; PULSE 79–104; RESP 16–19; TEMP 36.6–37.1; O2SAT 92–97
[2023-02-23] MEDS: piperacillin-tazobactam 3.375 GM in sodium chloride 0.9% (plus) 50 ML IV ×3 (00:23→17:41)
[2023-02-23 05:33] LABS: Vancomycin Trough 16.9 ug/mL (10-15)
[2023-02-23] MEDS: vancomycin 1,250 MG/250 ML PIGGYBACK 200 MG IV ×3 (05:54→21:07)
[2023-02-23] MEDS: hyDRALAzine 25 mg Tablet PO ×3 (08:31→21:07)
[2023-02-23] MEDS: lisinopril 20 mg Tablet 40 MG PO (08:31)
[2023-02-23] MEDS: sennosides-docusate Tablet 1 TAB PO (08:31)
[2023-02-23] MEDS: multivitamin therapeutic Tablet 1 TAB PO (08:31)
[2023-02-23] MEDS: acetaminophen 500 mg Tablet PO ×2 (08:31→21:06)
[2023-02-23] MEDS: thiamine 100 mg Tablet PO (08:32)
[2023-02-23] MEDS: folic acid 1 mg Tablet PO (08:32)
[2023-02-23] MEDS: amlodipine 10 mg Tablet PO (08:32)
[2023-02-23 09:00] LABS: THYROID PEROXIDASE ANTIBODIES <1 IU/mL (<9)
--- NOTE | 2023-02-23 12:31 | PC.SOCIAL ---
IMM Update pg 2 of IMM updated and reviewed w/ patient. Copy provided and copy dated, initialed and placed in chart.
[2023-02-23] MEDS: sodium chloride 0.9% 1,000 ML 100 ML IV (15:03)
[2023-02-23 15:14] LABS: COMPLEMENT, TOTAL (CH50) >60 U/mL (31-60)
--- NOTE | 2023-02-23 18:47 | P.PN_ITS ---
Subjective 2 Subjective: Lower extremity cellulitis is improving, however area of what appears to be dry gangrene over toe medially now. Patient did not participate with physical therapy today stating that he does not feel well overall. Developing wheezing on exam Medications: Reviewed: Yes Vitals/I&O/Wt Last Vital Signs Temp 97.8 F 02/23/23 15:29 Pulse 92 02/23/23 15:29 Resp 16 02/23/23 15:29 BP 143/73 02/23/23 15:29 Pulse Ox 93 02/23/23 15:29 O2 Del Method Room Air 02/23/23 15:29 02/23/23 02/23/23 02/23/23 06:59 14:59 22:59 Intake Total 50 / 3580 610 / 610 1540 / 2150 Output Total 700 / 3325 650 / 650 Balance -650 / 255 -40 / -40 1540 / 1500 Weight last 48 hrs Weight 91.989 kg Weight 93 kg Physical Exam 2 Narrative: General: No acute distress, AO x3 HEENT: PERRLA, pupils bilaterally equal and reactive, pallors not present Chest: wheezing to ausculotation B/L CVS: S1-S2 regular, no murmurs, no tachycardia, no gallops, no rubs Abdomen: Soft, nontender, no organomegaly, bowel sounds present Neuro: No focal deficits, no facial deformity, AO x3, power 5/5 in all limbs Extremities: Multiple scabs present over lower extremities. Area of developing dry gangrene over left toe. Urinary Catheter Management: Rcuz: Cath Placed During This Visit: yes Reason for Continuing Indwelling Catheter: Acute Urinary Retention or Obstruction Urinary Catheter Date of Insertion: 02/21/23 Urinary Catheter Time of Insertion: 20:00 Data 02/22/23 02:50 02/21/23 23:48 Micro: Microbiology 02/20/23 01:51 Gram Stain - Final Groin Wound Culture - Preliminary skin robyn A&P Assessment and plan (1) Adult failure to thrive: (2) Rhabdomyolysis: (3) Alcohol abuse: (4) Cellulitis: (5) Gangrene: (6) Multiple falls: Plan # Multiple falls of unclear nature Not syncopal episodes Patients states symptoms started one week ago with increasing weakness, however his given level of deconditioning suspect this has been much longer. He has multiple bruises all over his lower extremities. Some appear to be rug badillo. CPK elevated suggesting rhabdomyolysis B/L LE multiple small ulcers which may represent small vessel vasculitis vs small vessel PAD. Arterial duplex with normal SARAH B/L, left dorsal pedis possible occlusion #Concern for developing small area of gangrene over the left toe. Cellulitis appears to be improving, erythema warmth is better, however foot continues to be swollen. Heparin drip was discontinued yesterday evening. Currently we will resume full dose Lovenox. Obtain podiatry consult. Check left foot x-ray # Cellulitis appears to be improving Right foot was worse than left erythema, warmth improving negative blood cx thus far continue zosyn and vancomycin empirically monitor for improvement # dorsalis pedis occlusion full dose lovenox # Rhabdomyolysis: discontinue IVF today, encourage po intake # monitor for alcohol withdrawal Ciwa monitoring Tachycardia likely due to dehydration Check D-dimer # possible underlying COPD with diffuse wheezing Patient is a daily smoker. Start DuoNebs every 6 hours as a scheduled medication Add nicotine patch. # UTI: unlikely now, cx with urogenital robyn. Regular diet DVT prophylaxis : on heparin drip Attestations 2 Medical Necessity Statement*: monitor for developing gangarene, continue IVF, continue skilled therapy , podiatry consult Coding Level of Care Code Acute Code for [facility] Fwd Diagnoses Adult failure to thrive R62.7 Rhabdomyolysis M62.82 Alcohol abuse F10.10 Cellulitis L03.90 Gangrene I96 Multiple falls R29.6
--- NOTE | 2023-02-23 18:51 | XRR_ITS ---
PROCEDURE INFORMATION: Exam: XR Left Foot Exam date and time: 02/23/2023 8:51 PM Age: 67 years old Clinical indication: Condition or disease; Other: Osteomyelitis; Additional info: Evalaute for osteomyelitis TECHNIQUE: Imaging protocol: Radiologic exam of the left foot. Views: 1 or 2 views. COMPARISON: No relevant prior studies available. FINDINGS: Bones/joints: No acute osseous abnormality. No evidence of acute fracture, dislocation or bony destructive process. Left great toe MTP joint arthrosis and degenerative bony changes. Soft tissues: Nonspecific left foot soft tissue swelling. Vasculature: Diffuse small vessel arterial calcification. XR/XR foot LT 2V [id number] IMPRESSION: 1. No radiographic evidence of osteomyelitis at this time. 2. Nonspecific left foot soft tissue swelling. Differential diagnosis includes soft tissue injury versus inflammation/cellulitis versus fluid overload or venous insufficiency.
[2023-02-23 20:15] LABS: Alanine Aminotransferase 66 U/L (0-41); Albumin Level 2.9 g/dL (3.5-5.2); Alkaline Phosphatase 45 U/L (40-130); Anion Gap 11.9 (5-19); Aspartate Amino Transferase 77 U/L (0-40); Blood Urea Nitrogen 10 mg/dL (8-23); C Reactive Protein 12.8 mg/L (0.0-4.9); Calcium 7.8 mg/dL (8.5-10.5); Carbon Dioxide 24 mmol/L (22-29); Chloride 99 mmol/L (98-107); Globulin 2.3 g/dL (1.3-4.6); Glomerular Filtration Rate 135.2 mL/min (90-130); Glucose 108 mg/dL (65-115); Osmolality Calculated 274 mOsm/kg (285-295); Sodium 132 mmol/L (136-145); Total Bilirubin 0.5 mg/dL (0.15-1.2); Total Protein 5.2 g/dL (6.6-8.7)
[2023-02-23 20:16] LABS: Potassium 2.9 mmol/L (3.5-5.1)
[2023-02-23 20:17] LABS: Creatine Phosphokinase 731 U/L (39-308)
[2023-02-23] MEDS: ipratropium-albuterol 3 mL Neb INHALATION (20:29)
[2023-02-23] MEDS: enoxaparin 100 mg/mL Syringe 90 MG SUBCUT (20:33)
[2023-02-24] VITALS (9 sets, daily range): BP systolic 153–178; BP diastolic 68–74; PULSE 73–106; RESP 15–18; TEMP 36.7–37.6; O2SAT 93–97; BMI 25.3
[2023-02-24] MEDS: piperacillin-tazobactam 3.375 GM in sodium chloride 0.9% (plus) 50 ML IV ×3 (01:17→20:20)
[2023-02-24] MEDS: vancomycin 1,250 MG/250 ML PIGGYBACK 200 MG IV ×3 (04:36→20:20)
[2023-02-24 04:55] LABS: Basophils % 0.4 %; Eosinophils % 0.6 %; Hematocrit 31.8 % (37-53); Lymphocytes # 1.5 10^3/uL (0.8-4.8); Lymphocytes % 27.9 %; Mean Corpuscular Hemoglobin 34.9 pg (27-33); Mean Corpuscular Volume 105.6 fl (82-101); Mean Platelet Volume 8.8 fL (7.4-10.4); Monocytes # 0.7 10^3/uL (0.2-0.9); Monocytes % 11.9 %; Neutrophils % 58.6 %; Nucleated Red Blood Cells % 0 %; Platelet Count 144 10^3/cmm (157-399); Red Blood Count 3.01 10^6/uL (3.85-5.65); Red Cell Distribution Width 13.1 % (12.1-15.1); White Blood Count 5.45 10^3/uL (3.29-11.43)
[2023-02-24] MEDS: enoxaparin 100 mg/mL Syringe 90 MG SUBCUT ×2 (06:33→20:20)
[2023-02-24] MEDS: folic acid 1 mg Tablet PO (08:54)
[2023-02-24] MEDS: multivitamin therapeutic Tablet 1 TAB PO (08:54)
[2023-02-24] MEDS: hyDRALAzine 25 mg Tablet PO ×3 (08:54→20:20)
[2023-02-24] MEDS: amlodipine 10 mg Tablet PO (08:54)
[2023-02-24] MEDS: thiamine 100 mg Tablet PO (08:54)
[2023-02-24] MEDS: lisinopril 20 mg Tablet 40 MG PO (08:54)
[2023-02-24] MEDS: nicotine 21 mg Patch 1 PATCH TRANSDERMA (08:54)
[2023-02-24] MEDS: sennosides-docusate Tablet 1 TAB PO (08:54)
[2023-02-24] MEDS: ipratropium-albuterol 3 mL Neb INHALATION ×3 (10:01→19:59)
--- NOTE | 2023-02-24 15:05 | P.CONIM_ITS ---
Providers/Reason For Consult 2 Consulting Physician/Specialty*: Odell Padilla D.P.M. Reason for Consult*: Arterial insufficiency with wounds bilateral lower extremity Attending Physician: Melodie Glover MD History of Present Illness History of Present Illness Barrett Leahy is a 67 year old nondiabetic male with peripheral arterial disease. Podiatry consulted for evaluation of lower extremity wounds. ABIs have been performed, concern for occlusion of dorsalis pedis artery to the left. Patient endorses intermittent claudication, he cannot walk 1 block without his legs giving way. He has pain in the legs with standing and walking. He smokes, states that due to this hospital admission he would like to discontinue smoking, currently on nicotine patch. No history of revascularization of the lower extremities. He reports longstanding numbness to his feet, states has had a progression of peripheral neuropathy to the point where he does not feel pain at his toes. He was admitted to the hospital service for rhabdomyolysis and UTI. He has adult failure to thrive, hyponatremia, history of significant alcohol abuse and nicotine use. Review of Systems 2 General: Reports: 10 or more systems reviewed and unremarkable except in HPI and below Const: Denies: fever(s) or chills Card: Denies: chest pain or palpitations Resp: Denies: productive cough GI: Denies: abdominal pain, nausea or vomiting : Denies: flank pain Musc: Reports: extremity swelling, joint pain, joint stiffness, limited range of motion and deformity Skin/Breast: Reports: nail changes and change in hair; Denies: rash or sores Neuro: Reports: numbness in extremities, sensory changes and difficulty walking Psych: Denies: suicidal ideation Braydon/Lymph: Denies: easy bruising Medications/Allergies Home Medications Medication Instructions Recorded Confirmed Last Taken Type ibuprofen 200 mg tablet 400 mg PO Q6H PRN Pain 02/20/23 02/20/23 Unknown History Allergies Allergy/AdvReac Type Severity Reaction Status Date / Time No Known Allergies Allergy Verified 02/19/23 20:05 Current Medications Generic Name Dose Route Start Last Admin Trade Name Freq PRN Reason Stop Dose Admin Acetaminophen 500 mg 02/20/23 00:37 02/23/23 21:06 Acetaminophen 500 Mg Tablet PO 500 mg Q4H PRN Administration fever Albuterol/Ipratropium 3 ml 02/23/23 20:00 02/24/23 14:41 Ipratropium-Albuterol 3 Ml Neb INHALATION 3 ml Q6H.RESP GREG Administration Amlodipine Besylate 10 mg 02/20/23 23:15 02/24/23 08:54 Amlodipine 10 Mg Tablet PO 10 mg DAILY GREG Administration Enoxaparin Sodium 90 mg 02/23/23 19:30 02/24/23 06:33 Enoxaparin 100 Mg/Ml Syringe 1 mg/kg (90 mg) 90 mg SUBCUT Administration Q12H GREG Folic Acid 1 mg 02/20/23 09:00 02/24/23 08:54 Folic Acid 1 Mg Tablet PO 1 mg DAILY GREG Administration Hydralazine HCl 25 mg 02/22/23 17:00 02/24/23 08:54 Hydralazine 25 Mg Tablet PO 25 mg TID GREG Administration Piperacillin Sod/Tazobactam 50 mls @ 12.5 mls/hr 02/20/23 17:00 02/24/23 08:53 Sod 3.375 gm/ Sodium Chloride IV 12.5 mls/hr Q8H GREG Administration Protocol As Directed Vancomycin/PEG/NADA/Lysine/Water 1,250 mg in 250 mls @ 200 mls/hr 02/20/23 21:00 02/24/23 05:56 Vancocin IV Infused Q8H GREG Infusion Lisinopril 40 mg 02/22/23 09:00 02/24/23 08:54 Lisinopril 20 Mg Tablet PO 40 mg DAILY GREG Administration Multivitamins Therapeutic 1 tab 02/21/23 09:00 02/24/23 08:54 Multivitamin Therapeutic Tablet PO 1 tab DAILY GREG Administration Nicotine 1 patch 02/24/23 09:00 02/24/23 08:54 Nicotine 21 Mg Patch TRANSDERMA 1 patch DAILY GREG Administration Senna/Docusate Sodium 1 tab 02/20/23 09:00 02/24/23 08:54 Sennosides-Docusate Tablet PO 1 tab DAILY GREG Administration Thiamine Mononitrate 100 mg 02/20/23 09:00 02/24/23 08:54 Thiamine 100 Mg Tablet PO 100 mg DAILY GREG Administration Vitals/I&O/Wt Last Vital Signs Temp 99.7 F H 02/24/23 11:45 Pulse 88 02/24/23 14:44 Resp 18 02/24/23 14:44 BP 153/68 02/24/23 11:45 Pulse Ox 95 02/24/23 14:44 O2 Del Method Room Air 02/24/23 14:44 02/24/23 02/24/23 02/24/23 06:59 14:59 22:59 Intake Total 300 / 3398 720 / 720 Output Total 1125 / 2725 400 / 400 Balance -825 / 673 320 / 320 Weight last 48 hrs Weight 202 lb 12.8 oz Weight 202 lb 12.8 oz Physical Exam 2 Narrative: GENERAL: Patient is alert and oriented ?3 and in no acute distress. The following is a focused bilateral lower extremity exam. VASCULAR: Dorsalis pedis decreased bilaterally. Posterior tibial arteries decreased. Posterior tibial arteries are biphasic with pedal Doppler bilaterally. Monophasic right dorsalis pedis artery, weak monophasic left dorsalis pedis artery with pedal Doppler. Capillary refill time less than 5 seconds to the distal hallux bilaterally. Calf is supple and nontender proximally and distally. Mild pitting edema to the left lower extremity. Dependent rubor to bilateral feet. NEUROLOGICAL: Protective sensation intact 0/10 sites, tested with [place] Sanjuanita monofilament to bilateral feet. DERMATOLOGICAL: Toenails 1, 2, 3, 4, 5 left and right foot are elongated, thickened and discolored with subungual debris. Lower extremity integument is atrophic with decreased texture and turgor, has thin shiny appearance. Grade 1 wound at the left great toe, right great toe and right bunion prominence with rubor, no purulence. MUSCULOSKELETAL: No pain to palpation of the lower extremities secondary to neuropathy. Urinary Catheter Management: Cruz: Cath Placed During This Visit: yes Reason for Continuing Indwelling Catheter: Accurate Measurement of Urinary Output in Critically Ill Patients Urinary Catheter Date of Insertion: 02/21/23 Urinary Catheter Time of Insertion: 20:00 Data 02/25/23 01:56 02/25/23 01:56 Micro: Microbiology 02/20/23 01:51 Gram Stain - Final Groin Wound Culture - Final A&P Assessment and plan (1) Non-pressure chronic ulcer of other part of right foot limited to breakdown of skin: (2) Non-pressure chronic ulcer of other part of left foot limited to breakdown of skin: (3) Rhabdomyolysis: (4) Alcohol abuse: (5) Adult failure to thrive: (6) Peripheral arterial disease: (7) Onychodystrophy: -Toenails 1-5 bilaterally were debrided manually both in thickness and length manually with sterile nail nippers without incident. Plan 67-year-old male admitted for rhabdomyolysis and UTI, was found to have extensive peripheral arterial disease to the lower extremities with wounds at both feet. Wounds are limited to breakdown of skin and clinically stable at this time. Ordered wound care by nursing staff to be performed every other day consisting of silver alginate and silicone bordered foam dressing to left and right great toe. Patient's wounds currently are limited breakdown of skin and have arterial insufficiency appearance. Will refer to vascular surgery, will likely need to go out of [place] due to the distal nature of his arterial occlusion at the dorsalis pedis artery will require vascular surgery that has more specialization of the lower extremities. Discussed need to refer potentially to [facility] and patient is in agreement, in my opinion this referral can be done and he can follow-up with vascular surgery outpatient after this hospitalization. CT angiogram of the abdominal aorta with runoff would be beneficial for vascular surgery as a pertinent workup. No plans for surgical intervention from podiatry standpoint during this hospitalization. Patient okay for discharge from podiatry standpoint to the lower extremity, and would continue with silver alginate dressings every other day with silicone bordered foam. Follow-up with vascular surgery will likely require referral to [facility], I can help facilitate this. Will have him follow-up in podiatry clinic within 2 weeks from hospital discharge for continued management of lower extremity wounds. Consult Attestations 2 Medical Necessity Statement: Peripheral arterial disease with wound Coding Level of Care Code Acute Code for [facility] Fw Diagnoses Non-pressure chronic ulcer of other part of right foot limited to breakdown of skin L97.511 Non-pressure chronic ulcer of other part of left foot limited to breakdown of skin L97.521 Rhabdomyolysis M62.82 Alcohol abuse F10.10 Adult failure to thrive R62.7 Peripheral arterial disease I73.9 Onychodystrophy L60.3
--- NOTE | 2023-02-24 16:14 | P.PN_ITS ---
Subjective 2 Subjective: Tmax 99.1 Fahrenheit overnight. Blood pressure continues to be 160s. Patient states that he is feeling better today. Medications: Reviewed: Yes Vitals/I&O/Wt Last Vital Signs Temp 99.1 F 02/24/23 15:36 Pulse 104 H 02/24/23 15:36 Resp 15 02/24/23 15:36 BP 160/69 02/24/23 15:36 Pulse Ox 95 02/24/23 15:36 O2 Del Method Room Air 02/24/23 15:36 02/24/23 02/24/23 02/24/23 06:59 14:59 22:59 Intake Total 300 / 3398 720 / 720 50 / 770 Output Total 1125 / 2725 400 / 400 Balance -825 / 673 320 / 320 50 / 370 Weight last 48 hrs Weight 91.989 kg Weight 91.989 kg Physical Exam 2 Narrative: General: No acute distress, AO x3 HEENT: PERRLA, pupils bilaterally equal and reactive, pallors not present Chest: Normal vesicular breath sounds, no added sounds, equal good air entry bilaterally CVS: S1-S2 regular, no murmurs, no tachycardia, no gallops, no rubs Abdomen: Soft, nontender, no organomegaly, bowel sounds present Neuro: No focal deficits, no facial deformity, AO x3, power 5/5 in all limbs Urinary Catheter Management: Cruz: Cath Placed During This Visit: yes Reason for Continuing Indwelling Catheter: Accurate Measurement of Urinary Output in Critically Ill Patients Urinary Catheter Date of Insertion: 02/21/23 Urinary Catheter Time of Insertion: 20:00 Data 02/24/23 04:15 02/23/23 19:35 Micro: Microbiology 02/20/23 01:51 Gram Stain - Final Groin Wound Culture - Final A&P Assessment and plan (1) Acute hyponatremia: (2) Adult failure to thrive: (3) Rhabdomyolysis: (4) Acute UTI: (5) Alcohol abuse: Plan # Multiple falls of unclear nature Not syncopal episodes Patients states symptoms started one week ago with increasing weakness, however his given level of deconditioning suspect this has been much longer. He has multiple bruises all over his lower extremities. Some appear to be rug badillo. CPK elevated suggesting rhabdomyolysis B/L LE multiple small ulcers which may represent small vessel vasculitis vs small vessel PAD. Arterial duplex with normal SARAH B/L, left dorsal pedis possible occlusion #Concern for developing small area of gangrene over the left toe. Cellulitis appears to be improving, erythema warmth is better, however foot continues to be swollen. Heparin drip was discontinued yesterday evening. Currently we will resume full dose Lovenox. Obtain podiatry consult. Check left foot x-ray # Cellulitis appears to be improving Right foot was worse than left erythema, warmth improving negative blood cx thus far continue zosyn and vancomycin empirically monitor for improvement # dorsalis pedis occlusion full dose lovenox # Rhabdomyolysis: discontinue IVF today, encourage po intake # monitor for alcohol withdrawal Ciwa monitoring Tachycardia likely due to dehydration Check D-dimer # possible underlying COPD with diffuse wheezing Patient is a daily smoker. Start DuoNebs every 6 hours as a scheduled medication Add nicotine patch. # UTI: unlikely now, cx with urogenital robyn. Plan for today: Awaiting podiatry assessment for concern for developing gangrene over the toe. Continue antibiotics. Titrate blood pressure medications. Starting metoprolol 25 mg p.o. twice daily to help with blood pressure and tachycardia. X-ray of the foot without signs of osteomyelitis. Noted soft tissue edema. Overall cellulitis continues to improve. Attestations 2 Medical Necessity Statement*: Continued need of antibiotics, podiatry assessment today, manage blood pressure and, continued therapy. Coding Level of Care Code Acute Code for [facility] Fwd Diagnoses Acute hyponatremia E87.1 Adult failure to thrive R62.7 Rhabdomyolysis M62.82 Acute UTI N39.0 Alcohol abuse F10.10
[2023-02-24] MEDS: potassium chloride oral liq 20 mEq/15 mL UDC 60 MEQ PO (17:20)
[2023-02-24] MEDS: metoprolol tartrate 25 mg Tablet PO (17:20)
[2023-02-24 17:29] LABS: Alanine Aminotransferase 65 U/L (0-41); Alkaline Phosphatase 49 U/L (40-130); Anion Gap 14.1 (5-19); Aspartate Amino Transferase 71 U/L (0-40); Blood Urea Nitrogen 12 mg/dL (8-23); Calcium 8.1 mg/dL (8.5-10.5); Carbon Dioxide 25 mmol/L (22-29); Chloride 99 mmol/L (98-107); Globulin 2.8 g/dL (1.3-4.6); Glomerular Filtration Rate 135.2 mL/min (90-130); Glucose 136 mg/dL (65-115); Osmolality Calculated 282 mOsm/kg (285-295); Potassium 3.1 mmol/L (3.5-5.1); Sodium 135 mmol/L (136-145); Total Bilirubin 0.5 mg/dL (0.15-1.2); Total Protein 5.8 g/dL (6.6-8.7)
--- NOTE | 2023-02-24 18:39 | PC.NURSE ---
pts niece came to the nurses station, wanted information, stated that the pt didnt give her the correct information. I told her that i would check with the pt. I asked pt if it was ok to give his niece information and he stated i already talked to her. I told him that she was at the nurses station and wanted more information than what he had given her. I asked if he wanted me to give her any more or other information and he stated, no, she doesn't need anymore than what i told her!
[2023-02-24 23:30] LABS: DNA AB (DS) CRITHIDIA,IFA NEGATIVE (NEGATIVE)
[2023-02-25] VITALS (13 sets, daily range): BP systolic 120–154; BP diastolic 57–72; PULSE 70–115; RESP 16–30; TEMP 36.8–37.7; O2SAT 82–98; BMI 25.0
[2023-02-25 02:27] LABS: Basophils % 0.3 %; Eosinophils % 0.3 %; Hematocrit 33.1 % (37-53); Lymphocytes # 1.5 10^3/uL (0.8-4.8); Lymphocytes % 21.2 %; Mean Corpuscular HGB Conc 33.5 g/dL (30-55); Mean Corpuscular Hemoglobin 35.9 pg (27-33); Mean Corpuscular Volume 107.1 fl (82-101); Mean Platelet Volume 8.9 fL (7.4-10.4); Monocytes % 14.1 %; Neutrophils # 4.48 10^3/uL (1.8-7.7); Neutrophils % 63.4 %; Nucleated Red Blood Cells % 0 %; Platelet Count 164 10^3/cmm (157-399); Red Blood Count 3.09 10^6/uL (3.85-5.65); Red Cell Distribution Width 13.2 % (12.1-15.1); White Blood Count 7.07 10^3/uL (3.29-11.43)
[2023-02-25 02:41] LABS: Alanine Aminotransferase 62 U/L (0-41); Albumin Level 3.2 g/dL (3.5-5.2); Alkaline Phosphatase 58 U/L (40-130); Anion Gap 13.4 (5-19); Aspartate Amino Transferase 67 U/L (0-40); Blood Urea Nitrogen 12 mg/dL (8-23); Calcium 8.3 mg/dL (8.5-10.5); Carbon Dioxide 24 mmol/L (22-29); Chloride 102 mmol/L (98-107); Globulin 2.9 g/dL (1.3-4.6); Glomerular Filtration Rate 166.9 mL/min (90-130); Glucose 99 mg/dL (65-115); Osmolality Calculated 282 mOsm/kg (285-295); Potassium 3.4 mmol/L (3.5-5.1); Sodium 136 mmol/L (136-145); Total Bilirubin 0.5 mg/dL (0.15-1.2); Total Protein 6.1 g/dL (6.6-8.7)
[2023-02-25] MEDS: ipratropium-albuterol 3 mL Neb INHALATION ×4 (02:41→20:59)
[2023-02-25] MEDS: vancomycin 1,250 MG/250 ML PIGGYBACK 200 MG IV ×2 (04:12→11:54)
[2023-02-25] MEDS: piperacillin-tazobactam 3.375 GM in sodium chloride 0.9% (plus) 50 ML IV ×2 (04:12→11:59)
[2023-02-25] MEDS: lisinopril 20 mg Tablet 40 MG PO (08:19)
[2023-02-25] MEDS: metoprolol tartrate 25 mg Tablet PO ×2 (08:19→21:54)
[2023-02-25] MEDS: thiamine 100 mg Tablet PO (08:19)
[2023-02-25] MEDS: hyDRALAzine 25 mg Tablet PO ×3 (08:19→21:54)
[2023-02-25] MEDS: multivitamin therapeutic Tablet 1 TAB PO (08:19)
[2023-02-25] MEDS: sennosides-docusate Tablet 1 TAB PO (08:19)
[2023-02-25] MEDS: enoxaparin 100 mg/mL Syringe 90 MG SUBCUT (08:19)
[2023-02-25] MEDS: folic acid 1 mg Tablet PO (08:19)
[2023-02-25] MEDS: amlodipine 10 mg Tablet PO (08:19)
[2023-02-25] MEDS: nicotine 21 mg Patch 1 PATCH TRANSDERMA (08:19)
--- NOTE | 2023-02-25 11:29 | CTR_ITS ---
PROCEDURE INFORMATION: Exam: CTA Abdominal Aorta and Bilateral Lower Extremities (Run-off) With Contrast Exam date and time: 02/25/2023 1:11 PM Age: 67 years old Clinical indication: Other: Lower extremity aretrial ulcers, gangrene over toe TECHNIQUE: Imaging protocol: Computed tomographic angiography of the of the abdominal aorta, pelvis and bilateral lower extremities with contrast. 3D rendering (Not supervised by radiologist): MIP and/or 3D reconstructed images were created by the technologist. Radiation optimization: All CT scans at this facility use at least one of these dose optimization techniques: automated exposure control; mA and/or kV adjustment per patient size (includes targeted exams where dose is matched to clinical indication); or iterative reconstruction. Contrast material: OMNI 350; Contrast volume: 100 ml; Contrast route: INTRAVENOUS (IV); REPORTING DATA: Count of CT and Cardiac NM exams in prior 12 months: This patient has received 0 known CTs and 0 known cardiac nuclear medicine studies in the 12 months prior to the current study. COMPARISON: CR (LOW EXM, ) 02/23/2023 8:51 PM RADIATION DOSE METRICS: Total DLP (mGy-cm): 876.44 FINDINGS: Aorta: Atherosclerotic changes aneurysm or dissection. Celiac trunk and mesenteric arteries: Moderate proximal stenosis of the celiac and SMA, otherwise patent. Renal arteries: Moderate left and mild right origin stenosis. Right iliac arteries: Areas of mild stenosis. Right femoral/popliteal arteries: Extensive calcifications with areas of at least moderate stenosis in the femoral artery. Areas of up to severe stenosis of the popliteal artery (series 4, image 847). Right infrapopliteal arteries: Intermittent non-opacification of the infrapopliteal arteries which are poorly evaluated due to extensive calcification. Left iliac arteries: Areas of mild stenosis. Left femoral/popliteal arteries: Extensive calcifications with areas of at least moderate stenosis in the femoral artery. Areas of up to severe stenosis of the popliteal artery similar to contralateral side Left infrapopliteal arteries: No occlusion or significant stenosis. Lungs: Small bilateral pleural effusions and overlying atelectasis/consolidation. Liver: No mass. Gallbladder and bile ducts: No calcified stones. No ductal dilation. Pancreas: No ductal dilation. Spleen: No splenomegaly. Adrenal glands: No mass. Kidneys and ureters: Small right renal cyst. No stones or hydronephrosis. Stomach and bowel: No obstruction. Appendix: No evidence of appendicitis. Urinary bladder: Decompressed around a Cruz catheter. Reproductive: No acute findings. Intraperitoneal space: No free air. No significant fluid collection. Lymph nodes: No lymphadenopathy. Bones/joints: Degenerative changes without acute findings. Severe right moderate left knee osteoarthritic degenerative changes. Soft tissues: Unremarkable. CT/CT angio abd aorta runof [id number] IMPRESSION: Extensive bilateral popliteal and infrapopliteal calcifications with areas of severe stenosis and/or intermittent occlusion. Degree of calcification significantly limits assessment. Small bilateral pleural effusions and overlying atelectasis/consolidation.
[2023-02-25] MEDS: iohexol 350 mg/mL 500 mL Btl (per mL) IV (13:25)
--- NOTE | 2023-02-25 17:21 | P.PN_ITS ---
Subjective 2 Subjective: no new complains today, cellulitis almost resolved now Medications: Reviewed: Yes Vitals/I&O/Wt Last Vital Signs Temp 98.6 F 02/25/23 15:53 Pulse 99 02/25/23 15:53 Resp 18 02/25/23 15:53 BP 152/72 02/25/23 15:53 Pulse Ox 91 02/25/23 15:53 O2 Del Method Nasal Cannula 02/25/23 15:53 O2 Flow Rate 3 02/25/23 15:05 02/25/23 02/25/23 02/25/23 06:59 14:59 22:59 Intake Total 300 / 1810 540 / 540 Output Total 1800 / 2200 Balance -1500 / -390 540 / 540 Weight last 48 hrs Weight 90.718 kg Weight 91.989 kg Physical Exam 2 Narrative: General: No acute distress, AO x3 HEENT: PERRLA, pupils bilaterally equal and reactive, pallors not present Chest: Normal vesicular breath sounds, no added sounds, equal good air entry bilaterally CVS: S1-S2 regular, no murmurs, no tachycardia, no gallops, no rubs Abdomen: Soft, nontender, no organomegaly, bowel sounds present Neuro: No focal deficits, no facial deformity, AO x3, power 5/5 in all limbs Urinary Catheter Management: Cruz: Cath Placed During This Visit: yes Reason for Continuing Indwelling Catheter: Other Urinary Catheter Date of Insertion: 02/21/23 Urinary Catheter Time of Insertion: 20:00 Data 02/25/23 01:56 02/25/23 01:56 Micro: Microbiology 02/20/23 16:52 Blood Culture - Final Blood NO GROWTH AFTER 5 DAYS 02/20/23 16:42 Blood Culture - Final Blood NO GROWTH AFTER 5 DAYS Other data: CT/CT angio abd aorta runof [id number] IMPRESSION: Extensive bilateral popliteal and infrapopliteal calcifications with areas of severe stenosis and/or intermittent occlusion. Degree of calcification significantly limits assessment. 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 Some appear to be rug badillo. Multiple arterial ulcers over lower extremities CPK elevated suggesting rhabdomyolysis Arterial duplex with normal SARAH B/L, left dorsal pedis possible occlusion CTA with run off today with more proximal stenosis Extensive bilateral popliteal and infrapopliteal calcifications with areas of severe stenosis and/or intermittent occlusion. - will likely need further vascular surgery vs intervention cardiology evaluation start ASA 81 mg daily and Plavix 75 mg daily start statins lipitor 40 mg daily once rhabdomyolysis resolves d/c full dose anticoagulation as unlikley to be of benefit given chronicity #Cellulitis is nearly resolved X ray foot without osteomyelitis d/c IV abx and change to augmentin 875 mg BD # Rhabdomyolysis: recheck CPK PT assessment and eval appreciated # pneumonia :on approrpiate emptici treatment with zosyn and vanc--> augmentin # monitor for alcohol withdrawal Ciwa monitoring Tachycardia improving # possible underlying COPD with diffuse wheezing Patient is a daily smoker. continue DuoNebs every 6 hours as a scheduled medication Add nicotine patch. # UTI: unlikely now, cx with urogenital robyn. # uncontrolled BP: metorpolol added 02/24, if inadequate BP and HR control, titrate up next 24 hrs Attestations 2 Medical Necessity Statement*: d/c IV abx, change to oral, monitor cellulitis, may need intervention cards vs vascular consult if available on Sunday, disposition planning Coding Level of Care Code Acute Code for Chg Fwd Diagnoses Adult failure to thrive R62.7 Rhabdomyolysis M62.82 Alcohol abuse F10.10 Peripheral arterial disease I73.9 Cellulitis L03.90
[2023-02-25] MEDS: amoxicillin-clav 875-125 mg Tablet 1 TAB PO (17:38)
[2023-02-25 18:22] LABS: Creatine Phosphokinase 617 U/L (39-308)
[2023-02-26] VITALS (11 sets, daily range): BP systolic 155–171; BP diastolic 64–75; PULSE 88–106; RESP 16–22; TEMP 36.7–37.7; O2SAT 90–96
[2023-02-26] MEDS: ipratropium-albuterol 3 mL Neb INHALATION ×4 (01:26→20:25)
[2023-02-26 03:43] LABS: Basophils % 0.3 %; Eosinophils % 0.3 %; Lymphocytes # 1.2 10^3/uL (0.8-4.8); Lymphocytes % 17.9 %; Mean Corpuscular HGB Conc 32.6 g/dL (30-55); Mean Corpuscular Hemoglobin 35.7 pg (27-33); Mean Corpuscular Volume 109.5 fl (82-101); Mean Platelet Volume 9.3 fL (7.4-10.4); Monocytes # 0.7 10^3/uL (0.2-0.9); Monocytes % 9.6 %; Neutrophils # 4.94 10^3/uL (1.8-7.7); Neutrophils % 71.5 %; Nucleated Red Blood Cells % 0 %; Platelet Count 150 10^3/cmm (157-399); Red Blood Count 2.83 10^6/uL (3.85-5.65); Red Cell Distribution Width 13.2 % (12.1-15.1); White Blood Count 6.91 10^3/uL (3.29-11.43)
[2023-02-26 03:57] LABS: Alanine Aminotransferase 48 U/L (0-41); Albumin Level 2.9 g/dL (3.5-5.2); Alkaline Phosphatase 49 U/L (40-130); Anion Gap 15.1 (5-19); Aspartate Amino Transferase 43 U/L (0-40); Blood Urea Nitrogen 13 mg/dL (8-23); Calcium 8.1 mg/dL (8.5-10.5); Carbon Dioxide 22 mmol/L (22-29); Chloride 103 mmol/L (98-107); Globulin 2.9 g/dL (1.3-4.6); Glomerular Filtration Rate 135.2 mL/min (90-130); Glucose 101 mg/dL (65-115); Osmolality Calculated 284 mOsm/kg (285-295); Potassium 3.1 mmol/L (3.5-5.1); Sodium 137 mmol/L (136-145); Total Bilirubin 0.8 mg/dL (0.15-1.2); Total Protein 5.8 g/dL (6.6-8.7)
[2023-02-26] MEDS: amoxicillin-clav 875-125 mg Tablet 1 TAB PO ×2 (10:03→18:12)
[2023-02-26] MEDS: lisinopril 20 mg Tablet 40 MG PO (10:03)
[2023-02-26] MEDS: nicotine 21 mg Patch 1 PATCH TRANSDERMA (10:04)
[2023-02-26] MEDS: clopidogrel 75 mg Tablet PO (10:04)
[2023-02-26] MEDS: amlodipine 10 mg Tablet PO (10:04)
[2023-02-26] MEDS: aspirin 81 mg EC Tablet PO (10:04)
[2023-02-26] MEDS: multivitamin therapeutic Tablet 1 TAB PO (10:04)
[2023-02-26] MEDS: metoprolol tartrate 25 mg Tablet PO ×2 (10:04→21:01)
[2023-02-26] MEDS: sennosides-docusate Tablet 1 TAB PO (10:04)
[2023-02-26] MEDS: hyDRALAzine 25 mg Tablet PO ×3 (10:04→21:01)
[2023-02-26] MEDS: folic acid 1 mg Tablet PO (10:04)
[2023-02-26] MEDS: thiamine 100 mg Tablet PO (10:04)
--- NOTE | 2023-02-26 13:32 | P.PN_ITS ---
Subjective 2 Subjective: Seen today. Patient on 3 L nasal cannula at this time. Does not offer any complaints. CPK 600 today. Vitals/I&O/Wt Last Vital Signs Temp 98.5 F 02/26/23 11:14 Pulse 100 02/26/23 11:14 Resp 18 02/26/23 11:14 BP 166/74 02/26/23 11:14 Pulse Ox 93 02/26/23 11:14 O2 Del Method Nasal Cannula 02/26/23 11:14 O2 Flow Rate 4 02/26/23 07:55 02/25/23 02/26/23 02/26/23 22:59 06:59 14:59 Intake Total 639.167 / 1179.167 240 / 240 Output Total 1275 / 1275 400 / 1675 400 / 400 Balance -635.833 / -95.833 -400 / -495.833 -160 / -160 Weight last 48 hrs Weight 91.172 kg Weight 90.718 kg Physical Exam 2 Narrative: General: No acute distress, AO x3, patient unkept, has not showered in days. HEENT: PERRLA, pupils bilaterally equal and reactive, pallors not present Chest: Normal vesicular breath sounds, no added sounds, equal good air entry bilaterally CVS: S1-S2 regular, no murmurs, no tachycardia, no gallops, no rubs Abdomen: Soft, nontender, no organomegaly, bowel sounds present Neuro: No focal deficits, no facial deformity, AO x3, power 5/5 in all limbs Urinary Catheter Management: Cruz: Cath Placed During This Visit: yes Reason for Continuing Indwelling Catheter: Accurate Measurement of Urinary Output in Critically Ill Patients Urinary Catheter Date of Insertion: 02/21/23 Urinary Catheter Time of Insertion: 20:00 Data 02/26/23 02:04 02/26/23 02:04 Micro: Microbiology 02/20/23 16:52 Blood Culture - Final Blood NO GROWTH AFTER 5 DAYS 02/20/23 16:42 Blood Culture - Final Blood NO GROWTH AFTER 5 DAYS A&P Assessment and plan (1) Adult failure to thrive: (2) Rhabdomyolysis: (3) Alcohol abuse: (4) Peripheral arterial disease: (5) Cellulitis: Plan 67 year old male presented with recurrent falls at home, rhabdomyolysis, poor conditions at home, arterial insufficiency ulcers over lower extremities , deconditioning # severe PAD recurrent falls which are not syncopal episodes 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 Some appear to be rug badillo. Multiple arterial ulcers over lower extremities CPK elevated suggesting rhabdomyolysis Arterial duplex with normal SARAH B/L, left dorsal pedis possible occlusion CTA with run off today with more proximal stenosis Extensive bilateral popliteal and infrapopliteal calcifications with areas of severe stenosis and/or intermittent occlusion. - will likely need further vascular surgery vs intervention cardiology evaluation continue ASA 81 mg daily and Plavix 75 mg daily start statins lipitor 40 mg daily once rhabdomyolysis resolves d/c full dose anticoagulation as unlikley to be of benefit given chronicity Discussed with patient regarding further work-up with peripheral angiogram however he states he is not interested at this time and would like to pursue this as an outpatient. We will give him referral to vascular surgery as outpatient at discharge. #Cellulitis is nearly resolved X ray foot without osteomyelitis d/c IV abx and change to augmentin 875 mg BD # Rhabdomyolysis: recheck CPK , today 617 PT assessment and eval appreciated # pneumonia :on approrpiate emptici treatment with zosyn and vanc--> augmentin # alcohol abuse monitor for alcohol withdrawal Ciwa monitoring Tachycardia improving # possible underlying COPD with diffuse wheezing Patient is a daily smoker. continue DuoNebs every 6 hours as a scheduled medication Add nicotine patch. # UTI: unlikely now, cx with urogenital robyn. # uncontrolled BP: metorpolol added /, if inadequate BP and HR control, titrate up next 24 hrs Will increase hydralazine to 50 3 times daily, Full code dvt ppx: scds Attestations 2 Medical Necessity Statement*: Possibly discharge in 24-48 hours Diagnoses Adult failure to thrive R62.7 Rhabdomyolysis M62.82 Alcohol abuse F10.10 Peripheral arterial disease I73.9 Cellulitis L03.90
--- NOTE | 2023-02-26 13:38 | XRR_ITS ---
PROCEDURE INFORMATION: Exam: XR Chest Exam date and time: 02/26/2023 2:54 PM Age: 67 years old Clinical indication: Other: Hypoxia TECHNIQUE: Imaging protocol: Radiologic exam of the chest. Views: 1 view. COMPARISON: 1. CR (CHEST, ) 02/19/2023 8:30 PM 2. CR XR chest 1V [id number] 08/22/2016 1:[address] angio abd aorta runof [id number] 02/25/2023 1:11 PM FINDINGS: Lungs: Mild jurfz-jdnwwhh-lwab-left lower lung increased reticular markings and subtle asymmetric right lower lung ground-glass opacification. No dense consolidation. Right lower lung calcified granuloma. Pleural spaces: No substantial pleural effusion or pneumothorax. Heart/Mediastinum: Unremarkable. No cardiomegaly. Bones/joints: Wire projects over the lower cervical spine. Degenerative changes along the spine and shoulders. XR/XR chest 1V portable [id number] IMPRESSION: Lung findings may represent pulmonary edema, possibly atelectasis. Developing infection not entirely excluded.
[2023-02-26] MEDS: FUROsemide 10 mg/mL SDV 4mL 40 MG IVP (14:49)
[2023-02-26] MEDS: potassium phosphate (mEq K) 40 MEQ in sodium chloride 0.9% (100 ml) 100 ML 27.27 MEQ IV (15:21)
[2023-02-26] MEDS: acetaminophen 500 mg Tablet PO (21:01)
[2023-02-27] VITALS (11 sets, daily range): BP systolic 122–176; BP diastolic 58–80; PULSE 72–86; RESP 16–22; TEMP 36.8–37.4; O2SAT 90–95
[2023-02-27 04:26] LABS: Basophils % 0.4 %; Eosinophils % 0.4 %; Hematocrit 30.7 % (37-53); Lymphocytes # 1.2 10^3/uL (0.8-4.8); Lymphocytes % 16.4 %; Mean Corpuscular HGB Conc 32.9 g/dL (30-55); Mean Corpuscular Hemoglobin 35.9 pg (27-33); Mean Corpuscular Volume 109.3 fl (82-101); Mean Platelet Volume 8.9 fL (7.4-10.4); Monocytes # 0.5 10^3/uL (0.2-0.9); Monocytes % 6.6 %; Neutrophils # 5.61 10^3/uL (1.8-7.7); Neutrophils % 75.5 %; Nucleated Red Blood Cells % 0 %; Platelet Count 159 10^3/cmm (157-399); Red Blood Count 2.81 10^6/uL (3.85-5.65); White Blood Count 7.43 10^3/uL (3.29-11.43)
[2023-02-27] MEDS: amoxicillin-clav 875-125 mg Tablet 1 TAB PO ×2 (08:25→17:36)
[2023-02-27] MEDS: hyDRALAzine 25 mg Tablet PO ×2 (08:25→10:55)
[2023-02-27] MEDS: clopidogrel 75 mg Tablet PO (08:25)
[2023-02-27] MEDS: aspirin 81 mg EC Tablet PO (08:25)
[2023-02-27] MEDS: nicotine 21 mg Patch 1 PATCH TRANSDERMA (08:25)
[2023-02-27] MEDS: amlodipine 10 mg Tablet PO (08:25)
[2023-02-27] MEDS: lisinopril 20 mg Tablet 40 MG PO (08:25)
[2023-02-27] MEDS: multivitamin therapeutic Tablet 1 TAB PO (08:25)
[2023-02-27] MEDS: thiamine 100 mg Tablet PO (08:25)
[2023-02-27] MEDS: sennosides-docusate Tablet 1 TAB PO (08:25)
[2023-02-27] MEDS: folic acid 1 mg Tablet PO (08:25)
[2023-02-27 08:26] LABS: CENTROMERE B ANTIBODY <1.0 NEG AI (<1.0 NEG); JO-1 ANTIBODY <1.0 NEG AI (<1.0 NEG); RNP ANTIBODY <1.0 NEG AI (<1.0 NEG); SCL-70 ANTIBODY <1.0 NEG AI (<1.0 NEG); SJOGREN'S ANTIBODY (SS-A) <1.0 NEG AI (<1.0 NEG); SM ANTIBODY <1.0 NEG AI (<1.0 NEG); SS-B <1.0 NEG AI (<1.0 NEG)
[2023-02-27] MEDS: ipratropium-albuterol 3 mL Neb INHALATION ×3 (09:38→20:22)
[2023-02-27 09:45] LABS: Creatine Phosphokinase 179 U/L (39-308)
[2023-02-27] MEDS: metoprolol tartrate 25 mg Tablet PO ×2 (10:55→20:38)
--- NOTE | 2023-02-27 12:18 | P.PN_ITS ---
Subjective 2 Subjective: Seen this morning. CPK normalized to 179. Patient has again refused angiogram peripherally. He offers no other complaints at this time. On room air this morning. Vitals/I&O/Wt Last Vital Signs Temp 98.3 F 02/27/23 07:21 Pulse 77 02/27/23 08:00 Resp 16 02/27/23 08:00 BP 176/78 02/27/23 07:21 Pulse Ox 94 02/27/23 08:00 O2 Del Method Room Air 02/27/23 08:00 O2 Flow Rate 3 02/27/23 08:00 02/26/23 02/27/23 02/27/23 22:59 06:59 14:59 Intake Total 229 / 469 240 / 240 Output Total 600 / 1000 Balance 229 / 69 -600 / -531 240 / 240 Weight last 48 hrs Weight 88.859 kg Weight 91.172 kg Physical Exam 2 Narrative: General: No acute distress, AO x3, HEENT: PERRLA, pupils bilaterally equal and reactive, pallors not present Chest: Normal vesicular breath sounds, no added sounds, equal good air entry bilaterally CVS: S1-S2 regular, no murmurs, no tachycardia, no gallops, no rubs Abdomen: Soft, nontender, no organomegaly, bowel sounds present Neuro: No focal deficits, no facial deformity, AO x3 Urinary Catheter Management: Cruz: Cath Placed During This Visit: yes Reason for Continuing Indwelling Catheter: Accurate Measurement of Urinary Output in Critically Ill Patients Urinary Catheter Date of Insertion: 02/21/23 Urinary Catheter Time of Insertion: 20:00 Data 02/27/23 04:19 02/26/23 02:04 A&P Assessment and plan (1) Adult failure to thrive: (2) Rhabdomyolysis: (3) Alcohol abuse: (4) Peripheral arterial disease: (5) Cellulitis: Plan 67 year old male presented with recurrent falls at home, rhabdomyolysis, poor conditions at home, arterial insufficiency ulcers over lower extremities , deconditioning # severe PAD recurrent falls which are not syncopal episodes 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 Some appear to be rug badillo. Multiple arterial ulcers over lower extremities CPK elevated suggesting rhabdomyolysis Arterial duplex with normal SARAH B/L, left dorsal pedis possible occlusion CTA with run off today with more proximal stenosis Extensive bilateral popliteal and infrapopliteal calcifications with areas of severe stenosis and/or intermittent occlusion. - will likely need further vascular surgery vs intervention cardiology evaluation continue ASA 81 mg daily and Plavix 75 mg daily start statins lipitor 40 mg daily once rhabdomyolysis resolves d/c full dose anticoagulation as unlikley to be of benefit given chronicity Discussed with patient regarding further work-up with peripheral angiogram however he states he is not interested at this time and would like to pursue this as an outpatient. We will give him referral to vascular surgery as outpatient at discharge. #Cellulitis is nearly resolved X ray foot without osteomyelitis d/c IV abx and change to augmentin 875 mg BD # Rhabdomyolysis: recheck CPK , today 617 PT assessment and eval appreciated # pneumonia :on approrpiate emptici treatment with zosyn and vanc--> augmentin # alcohol abuse monitor for alcohol withdrawal Ciwa monitoring Tachycardia improving # possible underlying COPD with diffuse wheezing Patient is a daily smoker. continue DuoNebs every 6 hours as a scheduled medication Add nicotine patch. # UTI: unlikely now, cx with urogenital robyn. # uncontrolled BP: metorpolol added /, if inadequate BP and HR control, titrate up next 24 hrs continue hydralazine to 50 3 times daily, Full code dvt ppx: scds Attestations 2 Medical Necessity Statement*: Awaiting placement. Diagnoses Adult failure to thrive R62.7 Rhabdomyolysis M62.82 Alcohol abuse F10.10 Peripheral arterial disease I73.9 Cellulitis L03.90
[2023-02-27] MEDS: FUROsemide 10 mg/mL SDV 4mL 40 MG IVP (13:41)
[2023-02-28] VITALS (9 sets, daily range): BP systolic 111–154; BP diastolic 48–74; PULSE 75–85; RESP 16–18; TEMP 36.6–36.8; O2SAT 92–95
[2023-02-28 06:39] LABS: Basophils % 0.2 %; Eosinophils % 0.4 %; Hematocrit 30.7 % (37-53); Lymphocytes # 1.2 10^3/uL (0.8-4.8); Lymphocytes % 15.2 %; Mean Corpuscular HGB Conc 32.9 g/dL (30-55); Mean Corpuscular Hemoglobin 35.6 pg (27-33); Mean Corpuscular Volume 108.1 fl (82-101); Mean Platelet Volume 9.8 fL (7.4-10.4); Monocytes # 0.4 10^3/uL (0.2-0.9); Monocytes % 5.3 %; Neutrophils # 6.39 10^3/uL (1.8-7.7); Neutrophils % 78.4 %; Nucleated Red Blood Cells % 0 %; Platelet Count 200 10^3/cmm (157-399); Red Blood Count 2.84 10^6/uL (3.85-5.65); Red Cell Distribution Width 12.9 % (12.1-15.1); White Blood Count 8.15 10^3/uL (3.29-11.43)
[2023-02-28 07:08] LABS: Blood Urea Nitrogen 17 mg/dL (8-23); Calcium 8.3 mg/dL (8.5-10.5); Carbon Dioxide 25 mmol/L (22-29); Chloride 103 mmol/L (98-107); Glomerular Filtration Rate 166.9 mL/min (90-130); Glucose 105 mg/dL (65-115); Osmolality Calculated 288 mOsm/kg (285-295); Sodium 138 mmol/L (136-145)
[2023-02-28 07:32] LABS: Anion Gap 12.9 (5-19)
[2023-02-28 07:33] LABS: Potassium 2.9 mmol/L (3.5-5.1)
[2023-02-28] MEDS: ipratropium-albuterol 3 mL Neb INHALATION ×2 (08:21→13:02)
--- NOTE | 2023-02-28 08:30 | PM.DCS ---
Discharge Providers Date of Admission: 02/19/23 22:06 Date of Discharge: February 28, 2023 Attending Provider at Admission: Jayna Baird MD Attending Provider at Discharge: Angela Macario MD Diagnoses at Discharge Discharge Diagnosis (1) Adult failure to thrive: Status: Acute (2) Rhabdomyolysis: Status: Resolved (3) Alcohol abuse: Status: Acute (4) Peripheral arterial disease: Status: Acute (5) Cellulitis: Status: Acute Reason for Visit Reason for Visit: WEAKNESS Hospital Course Hospital Course Patient is admitted for recurrent falls at home rhabdomyolysis full conditions at home. On admission he was covered with feces. He was diagnosed with severe PAD, peripheral neuropathy. Arterial duplex showed normal SARAH bilaterally left dorsal pedis possible occlusion. CTA runoff showed more proximal stenosis extensive bilateral popliteal and infrapopliteal calcifications with areas of severe stenosis and/or intervention occlusion. He was started on aspirin, Plavix, Lipitor. Full dose anticoagulation was not given as it was unlikely to be of benefit given chronicity of his issues. Patient was offered vascular surgery consult during hospital stay for peripheral angiogram however he deferred that for now. He said he would like to have it as an outpatient and would like a referral for it at discharge. He also had cellulitis and x-ray foot showed no osteomyelitis. IV antibiotics were switched to oral Augmentin twice daily. He was also seen by podiatry during hospital stay. Please see consult note. For pneumonia patient was treated with Vanco and Zosyn. At discharge Augmentin is to cover the. Patient is a drinker and was on CIWA protocol during hospital stay. Lastly he had uncontrolled blood pressure for which various medications were used to achieve stability. Patient will be discharged to long-term at this point in stable condition. Physical Exam Narrative: General: No acute distress, AO x3, HEENT: PERRLA, pupils bilaterally equal and reactive, pallors not present Chest: Normal vesicular breath sounds, no added sounds, equal good air entry bilaterally CVS: S1-S2 regular, no murmurs, no tachycardia, no gallops, no rubs Abdomen: Soft, nontender, no organomegaly, bowel sounds present Neuro: No focal deficits, no facial deformity, AO x3 Urinary Catheter Management: Cruz: Cath Placed During This Visit: yes Reason for Continuing Indwelling Catheter: Accurate Measurement of Urinary Output in Critically Ill Patients Urinary Catheter Date of Insertion: 02/21/23 Urinary Catheter Time of Insertion: 20:00 Discharge Data Studies Completed and Pending Completed Studies During Hospitalization Category Date Time Status CTA abdominal aorta [CT angio abd aorta runof 21767] Cat Scan 02/25/23 11:29 Completed Routine XR chest 1V portable [id number] Routine Exams 02/26/23 13:38 Completed XR chest 1V portable [id number] Stat Exams 02/19/23 20:20 Completed XR foot LT 2V [id number] Routine Exams 02/23/23 18:51 [place] [id number] Routine Ultrasound 02/21/23 18:02 Completed CV. echo complete* [id number] Routine Ultrasound 02/21/23 00:37 Completed US arterial duplex lower extremity bilat [CV arterial Ultrasound 02/20/23 00:37 [place] [id number]] Routine Pending at discharge Category Date Time Status SARS Covid-2 Antigen Routine Lab 02/28/23 08:07 Received Radiology Impressions Foot X-Ray 02/23/23 18:51 IMPRESSION: 1. No radiographic evidence of osteomyelitis at this time. 2. Nonspecific left foot soft tissue swelling. Differential diagnosis includes soft tissue injury versus inflammation/cellulitis versus fluid overload or venous insufficiency. Aorta w/Runoff CTA 02/25/23 11:29 IMPRESSION: Extensive bilateral popliteal and infrapopliteal calcifications with areas of severe stenosis and/or intermittent occlusion. Degree of calcification significantly limits assessment. Small bilateral pleural effusions and overlying atelectasis/consolidation. Chest X-Ray 02/26/23 13:38 IMPRESSION: Lung findings may represent pulmonary edema, possibly atelectasis. Developing infection not entirely excluded. Laboratory Results WBC 8.15 10^3/uL (3.29-11.43) 02/28/23 05:40 RBC 2.84 10^6/uL (3.85-5.65) L 02/28/23 05:40 Hgb 10.10 g/dL (11.27-16.99) L 02/28/23 05:40 Hct 30.7 % (37-53) L 02/28/23 05:40 MCV 108.1 fl (82-101) H 02/28/23 05:40 MCH 35.6 pg (27-33) H 02/28/23 05:40 MCHC 32.9 g/dL (30-55) 02/28/23 05:40 RDW 12.9 % (12.1-15.1) 02/28/23 05:40 Plt Count 200 10^3/cmm (157-399) 02/28/23 05:40 MPV 9.8 fL (7.4-10.4) 02/28/23 05:40 Neut % (Auto) 78.4 % 02/28/23 05:40 Lymph % (Auto) 15.2 % 02/28/23 05:40 [place] % (Auto) 5.3 % 02/28/23 05:40 Eos % (Auto) 0.4 % 02/28/23 05:40 Baso % (Auto) 0.2 % 02/28/23 05:40 Neut # (Auto) 6.39 10^3/uL (1.8-7.7) 02/28/23 05:40 Lymph # (Auto) 1.2 10^3/uL (0.8-4.8) 02/28/23 05:40 [place] # (Auto) 0.4 10^3/uL (0.2-0.9) 02/28/23 05:40 Eos # (Auto) 0.0 10^3/uL (0.0-0.8) 02/28/23 05:40 Baso # (Auto) 0.0 10^3/uL (0.0-0.1) 02/28/23 05:40 Nucleated RBC % (auto) 0 % 02/28/23 05:40 Nucleated RBCs # 0.0 /100WBC 02/28/23 05:40 PT 13.40 SECONDS (12.1-14.9) 02/19/23 20:50 INR 0.99 (0.8-1.2) 02/19/23 20:50 APTT 33.0 SECONDS (23.9-36.7) 02/21/23 20:17 D-Dimer 1.99 ug/mLFEU (0-0.59) H 02/19/23 20:50 Sodium 138 mmol/L (136-145) 02/28/23 05:40 Potassium 2.9 mmol/L (3.5-5.1) L 02/28/23 05:40 Chloride 103 mmol/L (98-107) 02/28/23 05:40 Carbon Dioxide 25 mmol/L (22-29) 02/28/23 05:40 Anion Gap 12.9 (5-19) 02/28/23 05:40 BUN 17 mg/dL (8-23) 02/28/23 05:40 Creatinine 0.5 mg/dL (0.7-1.2) L 02/28/23 05:40 GFR Calculation 166.9 mL/min (90-130) H 02/28/23 05:40 Glucose 105 mg/dL (65-115) 02/28/23 05:40 POC Glucose 122 mg/dL (70-110) H 02/20/23 19:06 Estimat Average Glucose 85 02/20/23 02:22 Hemoglobin A1c 4.6 % (4.0-6.0) 02/20/23 02:22 Calculated Osmolality 288 mOsm/kg (285-295) 02/28/23 05:40 Lactic Acid 2.5 mmol/L (0.5-2.2) H 02/19/23 20:50 Lactic Acid (Sepsis) 1.5 mmol/L (0.5-2.2) 02/19/23 23:30 Calcium 8.3 mg/dL (8.5-10.5) L 02/28/23 05:40 Phosphorus 2.4 mg/dL (2.5-4.5) L 02/20/23 02:22 Magnesium 1.9 mg/dL (1.7-2.3) 02/20/23 02:22 Total Bilirubin 0.8 mg/dL (0.15-1.2) 02/26/23 02:04 AST 43 U/L (0-40) H 02/26/23 02:04 ALT 48 U/L (0-41) H 02/26/23 02:04 Alkaline Phosphatase 49 U/L (40-130) 02/26/23 02:04 Creatine Kinase 179 U/L (39-308) 02/27/23 04:19 Troponin T Baseline 60 ng/L (0-15) H 02/19/23 20:50 Troponin T 120 Minute 64.14 ng/L (0-15) H 02/19/23 23:30 Delta Troponin T 4.14 ABS# (0-10) 02/19/23 23:30 Troponin T Hi Sens 6Hr 74.83 ng/L (0-15) H 02/20/23 02:22 Troponin T Hi Sens 6Hr Delta 14.83 ng/L (0-12) H* 02/20/23 02:22 C-Reactive Protein 12.8 mg/L (0.0-4.9) H 02/23/23 19:35 NT-Pro-B Natriuret Pep 1631 pg/mL (0-125) H 02/19/23 20:50 Total Protein 5.8 g/dL (6.6-8.7) L 02/26/23 02:04 Albumin 2.9 g/dL (3.5-5.2) L 02/26/23 02:04 Globulin 2.9 g/dL (1.3-4.6) 02/26/23 02:04 Vitamin B12 289 pg/mL (232-1245) 02/20/23 02:22 Procalcitonin 0.25 ng/mL (0-0.5) 02/19/23 20:50 TSH 2.35 uIU/mL (0.27-4.20) 02/20/23 02:22 Urine Color Dark yellow (Yellow) 02/19/23 21:35 Urine Appearance Hazy (CLEAR) A 02/19/23 21:35 Urine pH 5 (5-7) 02/19/23 21:35 Ur Specific Hugo 1.015 (1.005-1.030) 02/19/23 21:35 Urine Protein Trace (Negative) 02/19/23 21:35 Urine Glucose (UA) Norm (Normal) 02/19/23 21:35 Urine Ketones 2+ (Negative) H 02/19/23 21:35 Urine Blood 2+ (Negative) H 02/19/23 21:35 Urine Nitrate Negative (Negative) 02/19/23 21:35 Urine Bilirubin 1+ (Negative) H 02/19/23 21:35 Urine Urobilinogen 1 mg/dL (Negative) H 02/19/23 21:35 Ur Leukocyte Esterase 2+ (Negative) H 02/19/23 21:35 Urine RBC 5-10 /hpf (0-2) H 02/19/23 21:35 Urine WBC 10-15 /hpf (0-5) H 02/19/23 21:35 Ur Squamous Epith Cells 0-4 /hpf (0-5) H 02/19/23 21:35 Amorphous Sediment Not Reportable 02/19/23 21:35 Urine Bacteria 1+ /hpf (NONE) H 02/19/23 21:35 Hyaline Casts Rare /lpf 02/19/23 21:35 Urine Mucus 2+ /hpf 02/19/23 21:35 Nasal Influ A H1 2008 PCR Not detected (NOT DETECT) 02/19/23 21:50 Vancomycin Trough 16.9 ug/mL (10-15) H 02/23/23 04:22 Urine Opiates Screen Negative ng/mL (Negative) 02/19/23 21:35 Ur Barbiturates Screen Negative ng/mL (Negative) 02/19/23 21:35 Ur Phencyclidine Scrn Negative ng/mL (Negative) 02/19/23 21:35 Ur Amphetamines Screen Negative ng/mL (Negative) 02/19/23 21:35 U Benzodiazepines Scrn Negative ng/mL (Negative) 02/19/23 21:35 Urine Cocaine Screen Negative ng/mL (Negative) 02/19/23 21:35 U Marijuana (THC) Screen Positive ng/mL (Negative) H 02/19/23 21:35 CRYSTAL IFA Animal Tis Res Negative (NEGATIVE) 02/21/23 04:45 MORENO-1 Antibody <1.0 neg AI (<1.0 NEG) 02/21/23 04:45 SS-A Antibody <1.0 neg AI (<1.0 NEG) 02/21/23 04:45 SS-B Antibody <1.0 neg AI (<1.0 NEG) 02/21/23 04:45 Sm (Vasquez) Antibody <1.0 neg AI (<1.0 NEG) 02/21/23 04:45 SALESPERSON PARTS Antibody <1.0 neg AI (<1.0 NEG) 02/21/23 04:45 Scl-70 Antibody <1.0 neg AI (<1.0 NEG) 02/21/23 04:45 Anti-ds DNA IgG (Crith) Negative (NEGATIVE) 02/21/23 04:45 Centromere B Antibody <1.0 neg AI (<1.0 NEG) 02/21/23 04:45 Thyroid Peroxidase Ab <1 IU/mL (<9) 02/21/23 04:45 Complement C3c 86 mg/dL (82-185) 02/21/23 04:45 Complement C4c 14 mg/dL (15-53) L 02/21/23 04:45 CH50 Classical Pathway >60 U/mL (31-60) H 02/21/23 04:45 Adenovirus (PCR) Not detected (NOT DETECT) 02/19/23 21:50 C. pneumoniae DNA (PCR) Not detected (NOT DETECT) 02/19/23 21:50 Coronavirus 229E (PCR) Not detected (NOT DETECT) 02/19/23 21:50 Human Metapneumovir PCR Not detected (NOT DETECT) 02/19/23 21:50 Influenza A (H1) PCR Not detected (NOT DETECT) 02/19/23 21:50 Influenza A (H3) PCR Not detected (NOT DETECT) 02/19/23 21:50 Influenza Type A (PCR) Not detected (NOT DETECT) 02/19/23 21:50 Influenza Type B (PCR) Not detected (NOT DETECT) 02/19/23 21:50 M. pneumoniae (PCR) Not detected (NOT DETECT) 02/19/23 21:50 Parainfluenza 1 (PCR) Not detected (NOT DETECT) 02/19/23 21:50 Parainfluenza 2 (PCR) Not detected (NOT DETECT) 02/19/23 21:50 Parainfluenza 3 (PCR) Not detected (NOT DETECT) 02/19/23 21:50 Parainfluenza 4 (PCR) Not detected (NOT DETECT) 02/19/23 21:50 RSV Type A (PCR) Not detected (NOT DETECT) 02/19/23 21:50 RSV Type B (PCR) Not detected (NOT DETECT) 02/19/23 21:50 Entero/Rhino (PCR) Not detected (NOT DETECT) 02/19/23 21:50 SARS-CoV-2 (PCR) Not detected (NOT DETECT) 02/19/23 21:50 Vitals Last Vital Signs Temp 97.8 F 02/28/23 07:58 Pulse 81 02/28/23 08:27 Resp 16 02/28/23 08:22 BP 154/74 02/28/23 07:58 Pulse Ox 93 02/28/23 08:22 O2 Del Method Room Air 02/28/23 08:22 O2 Flow Rate 3 02/27/23 21:54 Discharge Plan Discharge Patient Disposition: Xfer SNF Condition: Stable Prescriptions: New aspirin 81 mg Tablet,Delayed Release (Dr/Ec) 81 mg PO DAILY 30 Days Qty: 30 0RF amlodipine 10 mg Tablet 10 mg PO DAILY Qty: 30 0RF amoxicillin-pot clavulanate 875-125 mg Tablet 1 tab PO BID Qty: 20 0RF clopidogrel 75 mg Tablet 75 mg PO DAILY Qty: 30 0RF folic acid 1 mg Tablet 1 mg PO DAILY Qty: 30 0RF lisinopril 20 mg Tablet 40 mg PO DAILY Qty: 30 0RF Thera 400 mcg Tablet 1 tab PO DAILY Qty: 30 0RF Vitamin B-1 (mononitrate) 100 mg Tablet 100 mg PO DAILY Qty: 30 0RF Toprol XL 25 mg tablet extended release 24 hr 25 mg PO DAILY Qty: 30 0RF hydralazine 50 mg tablet 50 mg PO TID Qty: 90 0RF albuterol sulfate 90 mcg/actuation aerosol powdr breath activated 3 inh inhalation Q4H PRN (Reason: shortness of breath) Qty: 1 0RF Rx Instructions: until breathing returns to target peak flow/parameters atorvastatin 40 mg tablet 40 mg PO DAILY Qty: 30 0RF Discontinued ibuprofen 200 mg Tablet 400 mg PO Q6H PRN (Reason: Pain) Discharge Orders: Discharge Order (Routine); Ordered 02/28/23 Ordered By: Angela Macario Referrals: Odell Padilla DPM [Physician] - 03/14/23 10:00 am () Alo Dickinson MD [Physician] - 04/04/23 1:30 pm (peripheral angiogram for PAD Patient is new to [facility] so this is the earliest available appointment but if you feel patient needs to be seen sooner please speak with primary care. ) Discharge Diet: Cardiac Discharge Activity: Increase activity as tolerated and As per PT/OT instructions Patient Instructions: How to Stop Smoking (GEN), Cigarette Smoking and Your Health (GEN) Activity Restrictions/Additional Instructions: Please follow up with PCP within 4-7 days of discharge. Discharge Attestations Time Spent in Discharge Care*: greater than 30 min Quality Metrics Clinical Quality Measures [ No reported AMI, CVA or VTE this stay] Coding Level of Care Code Acute Code for Chg Fwd Diagnoses Adult failure to thrive R62.7 Rhabdomyolysis M62.82 Alcohol abuse F10.10 Peripheral arterial disease I73.9 Cellulitis L03.90
[2023-02-28 08:36] LABS: SARS Covid-2 Antigen negative (Negative)
[2023-02-28] MEDS: lidocaine 1% 5 ML in potassium chloride premix 100 ML 26.25 ML IV (08:39)
[2023-02-28] MEDS: thiamine 100 mg Tablet PO (08:42)
[2023-02-28] MEDS: clopidogrel 75 mg Tablet PO (08:42)
[2023-02-28] MEDS: multivitamin therapeutic Tablet 1 TAB PO (08:42)
[2023-02-28] MEDS: amlodipine 10 mg Tablet PO (08:42)
[2023-02-28] MEDS: folic acid 1 mg Tablet PO (08:42)
[2023-02-28] MEDS: aspirin 81 mg EC Tablet PO (08:42)
[2023-02-28] MEDS: sennosides-docusate Tablet 1 TAB PO (08:42)
[2023-02-28] MEDS: amoxicillin-clav 875-125 mg Tablet 1 TAB PO (08:42)
[2023-02-28] MEDS: nicotine 21 mg Patch 1 PATCH TRANSDERMA (08:42)
[2023-02-28] MEDS: hyDRALAzine 25 mg Tablet 50 MG PO (08:42)
[2023-02-28] MEDS: lisinopril 20 mg Tablet 40 MG PO (08:42)
[2023-02-28] MEDS: metoprolol tartrate 25 mg Tablet PO (08:50)
[2023-02-28] MEDS: lidocaine 1% 5 ML in potassium chloride premix 100 ML 52.5 ML IV (12:18)
--- NOTE | 2023-02-28 15:07 | PC.NURSE ---
REPORT CALLED TO [facility]. PATIENT JUST LEFT VIA [facility]
== END 2023-02-28 15:08 | disposition skilled nursing facility (03) | DRG 602 ==
LOC: ER 22:26 → ICU 02-20 00:42 → MEDSURG 02-22 17:07
PROVIDERS: Student in an Organized Health Care Education/Training Program; Admitting Provider Internal Medicine; Emergency Provider Internal Medicine; Visit Provider Internal Medicine
DX: L03.115 Cellulitis of right lower limb (principal); J18.9 Pneumonia, unspecified organism; E87.1 Hypo-osmolality and hyponatremia; M62.82 Rhabdomyolysis; I96 Gangrene, not elsewhere classified; L03.116 Cellulitis of left lower limb; R62.7 Adult failure to thrive; Z68.24 Body mass index [BMI] 24.0-24.9, adult; F10.10 Alcohol abuse, uncomplicated; I73.9 Peripheral vascular disease, unspecified; R29.6 Repeated falls; G62.9 Polyneuropathy, unspecified; I10 Essential (primary) hypertension; Z11.52 Encounter for screening for COVID-19; Z72.0 Tobacco use; E86.0 Dehydration; R00.0 Tachycardia, unspecified; Z66 Do not resuscitate; L60.3 Nail dystrophy; L97.521 Non-pressure chronic ulcer of other part of left foot limited to breakdown of skin; L97.511 Non-pressure chronic ulcer of other part of right foot limited to breakdown of skin; J44.9 Chronic obstructive pulmonary disease, unspecified
CPT/HCPCS: 36415; 36416; 51702; 71045; 73620; 75635; 80048; 80053; 80202; 80306; 81001; 82550; 82607; 82962; 83036; 83605; 83735; 83880; 84100; 84145; 84443; 84484; 85025; 85378; 85610; 85730; 86140; 86160; 86162; 86235; 86255; 86376; 87040; 87070; 87075; 87086; 87205; 87426; 87486; 87581; 87633; 93005; 93306; 93925; 93970; 94640; 96365; 96372; 96376; 97110; 97161; 97530; 99285; J0360; J0696; J1644; J1650; J1940; J2543; J3370; J3372; J3480; J7030; J7120; Q9967

== ENCOUNTER 2025-03-16 08:33 | Inpatient (IN) | payer MEDICARE, MEDICAID, SELFPAY ==
[2025-03-16] VITALS (18 sets, daily range): BP systolic 121–168; BP diastolic 67–91; PULSE 77–98; RESP 16–35; TEMP 37.2; O2SAT 90–96
--- NOTE | 2025-03-16 08:37 | USR_ITS ---
PROCEDURE INFORMATION: Exam: US Duplex Left Lower Extremity Arteries Or Arterial Bypass Grafts Exam date and time: 03/16/2025 9:01 AM Age: 69 years old Clinical indication: Pain; Leg, lower; Left; Additional info: Infection, concern for diminished pulses TECHNIQUE: Imaging protocol: Left Real-time duplex scan of the arteries or arterial bypass grafts of the left lower extremity with 2-D morgan scale, color Doppler flow and spectral waveform analysis. Images documented and saved. COMPARISON: CT angio abd aorta runof [id number] 02/25/2023 1:11 PM FINDINGS: Left common femoral artery: No occlusion or significant stenosis. Monophasic Left superficial femoral artery: No occlusion or significant stenosis. Monophasic Left popliteal artery: No occlusion or significant stenosis. Monophasic Left calf/foot arteries: No occlusion or significant stenosis in the visualized arteries. Monophasic PSV in cm/sec as follows: External iliac: 65, 81 [place]: 76 PFA: Not obtained SFA: 187, 17, 31 Popliteal: 17 Post tib: 0 Peroneal: [place]: Dorsalis pedis: 21 SARAH not obtained due to noncompressible arteries. US/CV arterial duplex [facility] [id number] IMPRESSION: Probable high-grade stenosis of the proximal SFA. Monophasic waveforms throughout. Minimal if any flow in the posterior tibial.
--- NOTE | 2025-03-16 08:38 | XR_ITS ---
WS: [id number] Left foot, 3 views, 03/16/2025 Clinical Data: Concern for osteomyelitis first 3 toes and distal foot Comparison: Left foot, 02/23/2023 Findings: No fractures or dislocations are seen. No bone destruction or erosion is noted. The joint spaces and soft tissues are normal. No evidence of osteomyelitis is seen. There are vascular calcifications. XR/XR foot LT min 3V* [id number] Impression: No evidence of osteomyelitis.
--- NOTE | 2025-03-16 08:39 | ED_ITS ---
HPI - Extremity Problem 2 General: Chief complaint: Extremity Injury, Lower Stated complaint: lower ext pain Time Seen by Provider: 03/16/25 08:35 History of Present Illness: 69-year-old man with a history of adult failure to thrive, hyperlipidemia, history of alcohol dependence, hypertension, peripheral vascular disease, who presents to the emergency room by ambulance from a correction with worsening redness and swelling in his foot. Wounds on his toes. And diminished pulses. Related Data Home Medications ?Medication ?Instructions ?Recorded ?Confirmed acetaminophen 325 mg tablet 650 mg PO Q6H PRN fever/ge neral 03/16/25 03/16/25 discomfort ketoconazole 2 % shampoo See Rx Instructions .Route . COMPLEX 03/16/25 03/16/25 magnesium hydroxide 400 mg/5 mL 30 ml PO DAILY PRN Con stipation 03/16/25 03/16/25 oral suspension (Milk of Magnesia) nystatin 100,000 unit/gram topical See Rx Instructions .Route .COMPLEX 03/16/25 03/16/25 powder sodium phosphates 19 gram-7 118 ml GA DAILY PRN Consti pation 03/16/25 03/16/25 gram/118 mL enema (Fleet Enema) tamsulosin 0.4 mg capsule 0.4 mg PO BEDTIME 03/16/25 1 05/17/24 Previous Rx's ?Medication ?Instructions ?Recorded albuterol sulfate 90 mcg/actuation 3 inh inhalation Q4 H PRN shortness 02/28/23 breath activated powder inhaler of breath #1 ea clopidogrel 75 mg tablet 75 mg PO DAILY #30 tabs 09/15 atorvastatin 40 mg tablet 40 mg PO DAILY #30 tabs 02/23 Allergies Allergy/AdvReac Type Severity Reaction Status Date / Time No Known Allergies Allergy Verified 02/19/23 20:05 Review of Systems 2 Narrative: Constitutional symptoms: Negative except as documented in HPI. Skin symptoms: Negative except as documented in HPI. Eye symptoms: Negative except as documented in HPI. ENMT symptoms: Negative except as documented in HPI. Respiratory symptoms: Negative except as documented in HPI. Cardiovascular symptoms: Negative except as documented in HPI. Gastrointestinal symptoms: Negative except as documented in HPI. Genitourinary symptoms: Negative except as documented in HPI. Musculoskeletal symptoms: Negative except as documented in HPI. Neurologic symptoms: Negative except as documented in HPI. Psychiatric symptoms: Negative except as documented in HPI. Endocrine symptoms: Negative except as documented in HPI. Physical Exam 2 Narrative: EXAM NARRATIVE: General: Alert, no acute distress. Skin: Warm, dry. Head: Normocephalic, atraumatic. Neck: Supple, trachea midline. Eye: Extraocular movements are intact. Ears, nose, mouth and throat: mucosa moist. Cardiovascular: Regular, Normal peripheral perfusion. Respiratory: Lungs are clear to auscultation, respirations are non-labored, breath sounds are equal, Symmetrical chest wall expansion. Gastrointestinal: Soft, Nontender, Non distended Musculoskeletal: Chronic appearing wounds on the first 3 toes of the left foot. Swelling and redness proximal to this on the distal end of the foot. Diminished pulses. Patient complains of pain. Neurological: Alert and oriented, No focal neurological deficit observed. Psychiatric: Cooperative, appropriate mood & affect. Course 2 Vital Signs: Vital signs: Vital Signs Temperature 98.9 F 03/16/25 08:35 Pulse Rate 98 03/16/25 13:30 Respiratory Rate 17 03/16/25 13:30 Blood Pressure 123/79 03/16/25 13:30 Pulse Oximetry 91 03/16/25 13:30 Oxygen Delivery Me thod Room Air 03/16/25 13:30 MDM - Extremity (Nontraumatic) Medical Decision Making Medical decision making Patient's reason for coming to the emergency room:patient is retired Social determinants: Patient is a correction patient I reviewed the patient's medical record. I reviewed the patient's correction records. 69-year-old man with a history of adult failure to thrive, hyperlipidemia, history of alcohol dependence, hypertension, peripheral vascular disease, I reviewed the patient's current home meds Patient is on Plavix. History of peripheral vascular disease Alternate historians: None Differential diagnosis: including but not limited to and based on the above HPI, review of systems and physical exam: In this patient with infection of his foot which appears to be fairly obviously acute on chronic would have concern for osteomyelitis. Worsening peripheral vascular disease. Sepsis. Orders placed to evaluate differential diagnosis based on the above differential, HPI and physical exam Ultrasound duplex arterial: Probable high-grade stenosis of the proximal SFA. Monophasic waveforms. Minimal if any flow in the posterior tibial. This was reviewed and interpreted by myself the emergency room physician. I also reviewed the radiology report. X-ray of the foot: No evidence of osteomyelitis. This was reviewed and interpreted by myself the emergency room physician. I also reviewed the radiology report. CTA with runoff: New complete obstruction of the left lower extremity beginning at the proximal femoral artery. Lab Review: Laboratory results were reviewed and interpreted by myself the emergency room physician. No leukocytosis. No anemia. No renal failure. CRP is elevated at 32. ESR is elevated at 63. Assessment of risk: Level of risk: High risk patient. Multiple comorbidities Hospitalization considerations: Patient is being admitted Reexamination: Patient remained stable. No increased work of breathing. No altered mental status. No focal motor deficits. Still minimal pulse in the foot. Pain improved with pain medications Consultation: I spoke with Dr. Padilla who is on-call for podiatry. He is planning on surgical intervention. First patient needs optimization of his vascular system.. Consultation: I spoke with Dr. Bhatt who is on-call for cardiology. He will evaluate the patient for possible vascular intervention. Consultation: I spoke with Dr. De Leon who is on-call for the hospital service who agrees to admission. Assessment and plan: Peripheral vascular disease Arterial occlusion Foot infection ?IV heparin ? IV vancomycin and cefepime ?IV morphine and Zofran -I discussed the patient with the hospitalist on-call who is admitting the patient. - Discussed findings and plan with patient. Answered any questions. - All laboratory values were reviewed and interpreted personally by myself, the ER physician - All imaging was reviewed and interpreted personally by myself, the ER physician. - Evaluation and treatment of this problem were appropriate in the emergency setting Lab Data 03/16/25 08:39 03/16/25 08:39 Radiology Impressions Duplex Scan Lower Extremity Artery 03/16/25 08:37 IMPRESSION: Probable high-grade stenosis of the proximal SFA. Monophasic waveforms throughout. Minimal if any flow in the posterior tibial. Foot X-Ray 03/16/25 08:38 Impression: No evidence of osteomyelitis. Aorta w/Runoff CTA 03/16/25 10:07 IMPRESSION: 1. New, complete occlusion LEFT lower extremity beginning in the proximal femoral artery. The deep profundus remains intact. 2. There is extensive circumferential calcified plaque throughout the LEFT lower extremity arteries. There may be some component of reconstitution but of little significance. Heavily calcified popliteal and infrapopliteal arteries. No significant amount of flow is identified distal LEFT lower extremity. 3. Heavily calcified plaque in the RIGHT femoral artery into the popliteal artery and infrapopliteal arteries. Similar findings as compared to 02/25/2023. The extent of stenosis and occlusions are difficult to quantify due to the heavy calcification in the arteries. 4. Extensive atherosclerosis in the abdominal aorta and mesenteric arteries and renal arteries. Laboratory Results WBC 7.64 10^3/uL (3.29-11.43) 03/16/25 08:39 RBC 4.59 10^6/uL (3.85-5.65) 03/16/25 08:39 Hgb 13.60 g/dL (11.27-16.99) 03/16/25 08:39 Hct 43.1 % (37-53) 03/16/25 08:39 MCV 93.9 fl (82-101) 03/16/25 08:39 MCH 29.6 pg (27-33) 03/16/25 08:39 MCHC 31.6 g/dL (30-55) 03/16/25 08:39 RDW 13.8 % (12.1-15.1) 03/16/25 08:39 Plt Count 291 10^3/cmm (157-399) 03/16/25 08:39 MPV 8.7 fL (7.4-10.4) 03/16/25 08:39 Neut % (Auto) 63.4 % 03/16/25 08:39 Lymph % (Auto) 29.7 % 03/16/25 08:39 [place] % (Auto) 4.5 % 03/16/25 08:39 Eos % (Auto) 1.8 % 03/16/25 08:39 Baso % (Auto) 0.3 % 03/16/25 08:39 Neut # (Auto) 4.85 10^3/uL (1.8-7.7) 03/16/25 08:39 Lymph # (Auto) 2.3 10^3/uL (0.8-4.8) 03/16/25 08:39 [place]ard # (Auto) 0.3 10^3/uL (0.2-0.9) 03/16/25 08:39 Eos # (Auto) 0.1 10^3/uL (0.0-0.8) 03/16/25 08:39 Baso # (Auto) 0.0 10^3/uL (0.0-0.1) 03/16/25 08:39 Nucleated RBC % (auto) 0 % 03/16/25 08:39 Nucleated RBCs # 0.0 /100WBC 03/16/25 08:39 ESR 63 mm/hr (0-10) H 03/16/25 08:39 Sodium 140 mmol/L (136-145) 03/16/25 08:39 Potassium 4.3 mmol/L (3.5-5.1) 03/16/25 08:39 Chloride 103 mmol/L (98-107) 03/16/25 08:39 Carbon Dioxide 24 mmol/L (22-29) 03/16/25 08:39 Anion Gap 17.3 (5-19) 03/16/25 08:39 BUN 14 mg/dL (8-23) 03/16/25 08:39 Creatinine 0.7 mg/dL (0.7-1.2) 03/16/25 08:39 GFR Calculation 112.5 mL/min (90-130) 03/16/25 08:39 Glucose 144 mg/dL (65-115) H 03/16/25 08:39 Calculated Osmolality 293 mOsm/kg (285-295) 03/16/25 08:39 Lactic Acid 2.2 mmol/L (0.5-2.2) 03/16/25 08:39 Lactic Acid (Sepsis) 1.6 mmol/L (0.5-2.2) 03/16/25 11:19 Calcium 8.9 mg/dL (8.5-10.5) 03/16/25 08:39 Total Bilirubin 0.4 mg/dL (0.15-1.2) 03/16/25 08:39 AST 19 U/L (0-40) 03/16/25 08:39 ALT 14 U/L (0-41) 03/16/25 08:39 Alkaline Phosphatase 94 U/L (40-130) 03/16/25 08:39 C-Reactive Protein 32.6 mg/L (0.0-4.9) H 03/16/25 08:39 Total Protein 7.2 g/dL (6.6-8.7) 03/16/25 08:39 Albumin 3.6 g/dL (3.5-5.2) 03/16/25 08:39 Globulin 3.6 g/dL (1.3-4.6) 03/16/25 08:39 All radiology interpretation(s) finalized by discharge Discharge Plan Discharge Condition: Stable Prescriptions: No Action acetaminophen 325 mg Tablet 650 mg PO Q6H PRN (Reason: fever/general discomfort) ketoconazole 2 % shampoo See Rx Instructions .ROUTE .COMPLEX Rx Instructions: Apply to scalp topically as needed for seborrhea capitis on shower days. magnesium hydroxide [Milk of Magnesia] 400 mg/5 mL Suspension 30 ml PO DAILY PRN (Reason: Constipation) tamsulosin 0.4 mg capsule 0.4 mg PO BEDTIME Fleet Enema 19-7 gram/118 mL Enema 118 ml GA DAILY PRN (Reason: Constipation) nystatin 100,000 unit/gram powder See Rx Instructions .ROUTE .COMPLEX Rx Instructions: Apply to groin bilaterally topically twice daily for candidiasi. clopidogrel 75 mg Tablet 75 mg PO DAILY Qty: 30 0RF albuterol sulfate 90 mcg/actuation aerosol powdr breath activated 3 inh inhalation Q4H PRN (Reason: shortness of breath) Qty: 1 0RF Rx Instructions: until breathing returns to target peak flow/parameters atorvastatin 40 mg tablet 40 mg PO DAILY Qty: 30 0RF Print Language: Telugu Coding Level of Care Code ED Slash Trimmer for [place] Alfaro
--- OUTSIDE RECORDS SUMMARY | 2025-03-16 08:41 | XMS_ITS | Continuity of Care Document ---
Author Organization [facility], [facility], [facility] ([facility]) Address [address] [place] [address] Assessment No assessment recorded. Plan of Treatment Reminders Order Date Submit Date Provider Last Modified By Organization Details Last Modified Time Details Appointments None record ed. Lab None record ed. Referral None record ed. Procedures None record ed. Surgeries None record ed. Imaging None record ed. Medication Orders None record ed. Patient TargetsNo targets recorded. Patient Instructions Encounter Date Encounter Id Patient Instructions Last Modified By Organization Details Last Modified Time 12/24/2024 [id number] bp controlled; dysuria resolved Discussed referring to dentist, not interested at this point. Agrees to tx with Augmentin 875 bid x 5 days, if no improvement will see dentist. [email or web address] Not available 12/24/2024 15:05:33 Reason for Referral None Reported. Problems Name Problem SNOMED Code Status Onset Date Resolution Date Notes Provider Name and Address Organization Details Recorded Time Vasectomy Active 2008 Vasecto my; 009 12:12PM by Olinda Zhou LPN, Office Visit; Promote d; acuity set as *; Not Available [facility] 3 03:18:17 Benign hypertensi on 38588338 Active 2008 HTN; 009 12:11PM by Olinda Zhou LPN, Office Visit; Promote d; acuity set as *; Not Available [facility] 3 03:18:17 Hospital inpatient stay within past 30 days 473760731546 6 Active 2022 JACKSON evangelista, [facility], [facility] 3 08:40:12 Hyponatrem ia 55146960 [facility] 08:[facility]:44 Rhabdomyol ysis 053135581 [facility] 08:40:44 Acute urinary tract infection 033248798 [facility] 08:40:46 Harmful pattern of use of alcohol 30967376 Active 2022 [facility] 3 08:40:48 Neuropathy 323131990 [facility] 08:40:49 Vitamin D deficiency 07663895 Active 2022 [facility] 3 11:59:20 Tinea capitis 4041191 [facility] 20[facility] 12:09:34 Tinea pedis 5306966 [facility] 12:09:35 Eruption 411692525 Active 20[facility] 5 16:19:19 Problem Notes None recorded. Medical Equipment None Reported. Medications Name Sig Start Date Stop Date Status Note LastModified by Organization Details LastModified Time atorvastat in 40 mg tablet active Not Available Not Available Not Available ketoconazo le 2 % shampoo active Not Available Not Available Not Available ofloxacin 0.3 % eye drops two times daily 2008 active Recorded 9 12:44PM by NAKIA Hernandez, Office Visit; Refill Quantity: 0; Not Available Not Available Not Available fluconazol e 150 mg tablet active Not Available Not Available Not Available lisinopril 20 mg tablet active Not Available Not Available Not Available hydralazin e 25 mg tablet 08/27 completed Not Available Not Available Not Available clopidogre l 75 mg tablet active Not Available Not Available Not Available amlodipine 5 mg tablet active Not Available Not Available Not Available terbinafin e HCl 250 mg tablet active Not Available Not Available No t Available amlodipine 10 mg tablet active Not Available Not Available Not Available hydralazin e 50 mg tablet 08/27 completed Not Available Not Available Not Available metoprolol succinate ER 25 mg tablet,ext ended release 24 hr active Not Available Not Available Not Available nystatin 100,000 unit/gram topical powder active Not Available Not Available Not Available albuterol sulfate HFA 90 mcg/actuat ion aerosol inhaler active Not Available Not Available Not Available lisinopril 40 mg tablet active Not Available Not Available Not Available amoxicilli n 875 mg-potassi um clavulanat e 125 mg tablet 08/27 completed Not Available Not Available Not Available lisinopril two times daily active Recorded 9 12:14PM by Olinda Zhou LPN, Office Visit; Not Available Not Available Not Available Paxlovid 300 mg (150 mg x 2)-100 mg tablets in a dose pack 08/27 completed Not Available Not Available Not Available Vitals Date Recorded Body weight Heart rate Respiratory rate Body temperature Oxygen saturation Systolic And Diastolic Provider Name and Address Organization Details Last Updated DateTime 5 093284. 95 g 64 /min 22 /min 98.2 [degF] 96 % 130/60 mm[Hg] JACKSON ZUNIGA [facility] 5 14:48:23 Social History None recorded. Functional Status None recorded. Mental Status None recorded. Family History Nothing Reported Notes:HTN- Maternal grandfat her, [place]-Mother Medical History No medical history recorded. Past Encounters Encounter ID Performer Location Encounter Start Date Encounter Closed Date Diagnosis/Indication Diagnosis SNOMED-CT Code Diagnosis ICD10 Code Diagnosis IMO Codes Diagnosis Note [id number] Scottie Beckwith DO [facility] ([facility]) [address] [place] [address] 12/10/2024 10:08:15 12/16/2024 16:32:59 Benign hypertension 26224222 I10 Harmful pa ttern of use of alcohol 27522643 F10.10 [id number] Scottie Beckwith DO [facility] ([facility]) [address] [place] [address] 12/24/2024 11:57:05 12/29/2024 15:06:30 Infection of tooth 744945245 K04.7 [id number] Benign hypertension 1072 5009 I10 Health Concerns Section Related Observation LastModified by Organization Detai ls LastModified Time None Recorded Concern Status LastModified by Organization Details LastModified Time None Recorded Payers Encounter Date Sequence Insurance Name Policy Number Policy Bañuelos Covered Member ID Bañuelos Member ID Guarantor Name 12/24/2024 1 [place] Barrett Leahy [id number] Barrett Leahy 12/24/2024 2 [place] Barrett Leahy [id number] Barrett Leahy Notes Date Note Type Note Provider Name and Address Organization Details Recorded Time 12/24/2024 text/html Care Management - GeneralReported by PatientHPIFor prognosis, patient reportsexpected outcome: improveandprognosis: moderate. For context, patient reportsnot current smoker.ROS as noted in the HPI c/o dental pain on left side Scottie Beckwith DO [address] [place] [address], [id number], [facility] 12/24/2024 15:05:46
--- OUTSIDE RECORDS SUMMARY | 2025-03-16 08:41 | XMS_ITS | Data Portability ---
Author Organization [facility] Markell Santoro [facility] Sherice Beltran [facility] Address [address] [place] [phone] Assessment No assessment recorded. Plan of Treatment [...] Modified By Organization Details Last Modified Time 11/10/2024 [id number] inflamed hair follicles, not infected. Blood pressure controlled. [email or web address] Not available 11/10/2024 16:19:33 12/10/2024 [id number] Blood pressure stable. Does c/o dysuria, will get UA. Not available 12/10/2024 13:17:27 12/24/2024 [id number] bp controlled; dysuria resolved Discussed referring to dentist, not interested at this point. Agrees to tx with Augmentin 875 bid x 5 days, if no improvement will see dentist. Not available 12/24/2024 15:05:33 02/02/2025 [id number] tx with skin pre p and offload pressure. Will have staff put lotion on feet bid. [email or web address] Not available 02/02/2025 16:09:13 Reason for Referral None Reported. Problems Name Problem SNOMED Code Status Onset Date Resolution Date Notes Provider Name and Address Organization Details Recorded Time Vasectomy Active 2008 Vasecto my; 009 12:12PM by Olinda Zhou LPN, Office Visit; Promote d; acuity set as *; Not Available [facility] 3 03:18:17 Benign hypertensi on 27083111 Active 2008 HTN; 009 12:11PM by Olinda Zhou LPN, Office Visit; Promote d; acuity set as *; [facility] Available [facility] 3 03:18:17 Hospital inpatient stay within past 30 days 852445907680 6 Active 2022 JACKSON ZUNIGA [facility] 3 08:40:12 Hyponatrem ia 35788040 Active 2022 JACKSON ZUNIGA [facility] 3 08:40:44 Rhabdomyol ysis 343756797 Active 2022 JACKSON ZUNIGA [facility] 3 08:40:44 Acute urinary tract infection 830466488 Active 2022 JACKSON ZUNIGA [facility] 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 3 08:40:48 Neuropathy 586767501 Active 2022 JACKSON ZUNIGA [facility] 3 08:40:49 Vitamin D deficiency 60670237 Active 2022 JACKSON ZUNIGA [facility] 3 11:59:20 Tinea capitis 6672579 Active 2023 JACKSON ZUNIGA [facility] 4 12:09:34 Tinea pedis 1100606 Active 2023 JACKSON ZUNIGA [facility] 4 12:09:35 Eruption 577690316 Active 2024 JACKSON evangelista [facility], .Lonnie 5 16:19:19 Problem Notes None recorded. Medical [...] Address Organization Details Last Updated DateTime 5 243567. 95 g 85 /min 18 /min 97.5 [degF] 94 % 118/67 mm[Hg] [facility] 5 16:16:52 Date Recorded Body weight Heart rate Respiratory rate Body temperature Oxygen saturation Systolic And Diastolic Provider Name and Address Organization Details Last Updated DateTime 5 798030. 95 g 74 /min 22 /min 97.2 [degF] 94 % 129/59 mm[Hg] [facility] 5 13:15:53 Date Recorded Body weight Heart rate Respiratory rate Body temperature Oxygen saturation Systolic And Diastolic Provider Name and Address Organization Details Last Updated DateTime 5 479019. 95 g 64 /min 22 /min 98.2 [degF] 96 % 130/60 mm[Hg] [facility] 5 14:48:23 Date Recorded Heart rate Respiratory rate Body temperature Oxygen saturation Systolic And Diastolic Provider Name and Address Organization Details Last Updated DateTime 5 84 /min 18 /min 97.8 [degF] 94 % 138/72 mm[Hg] [facility] 5 16:06:30 Social History None recorded. Functional Status None recorded. Mental Status None recorded. Family History Nothing Reported Notes:HTN- Maternal grandfat her, Colon [place]-Mother Medical History No medical history recorded. Past Encounters Encounter ID Performer Location Encounter Start Date Encounter Closed Date Diagnosis/Indication Diagnosis SNOMED-CT Code Diagnosis ICD10 Code Diagnosis IMO Codes Diagnosis Note [id number] Scottie Beckwith DO [facility] ([facility]) [address] [place] [address] 03/01/2023 12:10:27 03/06/2023 10:25:31 Hospital inpatient stay within past 30 days 0106595379 106 Z76.89 Hyponatremia 79749541 E8 7.1 Rhabdomyolysis 136785930 M62.82 Acute urin ruslan tract infection 834921713 N39.0 Harmful pa ttern of use of alcohol 61164132 F10.10 Neuropathy 110907081 G62 .9 Peripheral vascular disease 407479431 I73.9 [id number] Scottie Beckwith [facility] ([facility]) [address] [place] [phone] 03/06/2023 08:01:55 03/11/2023 20:53:27 Benign hypertension 88339718 I10 Harmful pa ttern of use of alcohol 22284151 F10.10 Vitamin D deficiency 347 39580 E55.9 [id number] Scottie Beckwith DO [facility] ([facility]) [address] [place], [place] [address] 03/13/2023 08:42:14 04/01/2023 20:18:01 Benign hypertension 82651064 I10 Harmful pa ttern of use of alcohol 36402313 F10.10 [id number] Socttie Beckwith [facility] ([facility]) [address] [place], [place] [phone] 05/15/2023 10:29:58 05/21/2023 16:22:04 Benign hypertension 67823358 I10 Harmful pa ttern of use of alcohol 39341282 F10.10 [id number] Scottie Beckwith [facility] ([facility]) [address] [place] [address] 06/14/2023 08:07:41 06/14/2023 17:17:32 Harmful pattern of use of alcohol 60315430 F10.10 Benign hypertension 1072 5009 I10 [id number] Scottie Beckwith [facility] ([facility]) [address] [place] [address] 07/03/2023 08:08:34 07/04/2023 12:00:59 Benign hypertension 90338471 I10 Harmful pa ttern of use of alcohol 44064474 F10.10 [id number] Scottie Beckwith [facility] ([facility]) [address] [place] [address] 08/02/2023 07:47:07 08/07/2023 11:39:16 Harmful pattern of use of alcohol 80812718 F10.10 Benign hypertension 1072 5009 I10 [id number] Scottie Beckwith [facility] ([facility]) [address] [place] [address] 08/28/2023 07:58:57 09/04/2023 10:24:51 Benign hypertension 01819762 I10 [id number] Scottie Beckwith DO [facility] ([facility]) [address] [place], [place] [address] 10/09/2023 08:01:37 10/09/2023 16:43:16 Benign hypertension 12185689 I10 Harmful pa ttern of use of alcohol 19074794 F10.10 [id number] Scottie Beckwith DO [facility] ([facility]) [address] [place], [place] [address] 11/13/2023 08:39:38 11/13/2023 16:33:29 Benign hypertension 74359238 I10 [id number] Scottie Beckwith DO [facility] ([facility]) [address] [place], [place] [address] 12/11/2023 08:32:42 12/12/2023 08:11:16 Benign hypertension 41503630 I10 Harmful pa ttern of use of alcohol 71055739 F10.10 Vitamin D deficiency 347 91918 E55.9 [id number] Scottie Beckwith [facility] ([facility]) [address] [place], [place] [address] 01/08/2024 08:07:20 01/08/2024 16:55:26 Benign hypertension 60575484 I10 Harmful pa ttern of use of alcohol 58682864 F10.10 [id number] Scottie Beckwith DO [facility] ([facility]) [address] [place], [place] [address] 02/14/2024 08:12:14 02/14/2024 16:12:21 Benign hypertension 31235001 I10 [id number] Scottie Beckwith [facility] ([facility]) [address] [place], [place] [phone] 02/26/2024 07:56:11 03/04/2024 10:08:12 Tinea capitis 2834490 B35.0 Tinea pedis 7684812 B35. 3 [id number] Scottie Beckwith [facility] ([facility]) [address] [place], [place] [phone] 03/31/2024 12:23:24 03/31/2024 22:26:27 Benign hypertension 57449632 I10 Harmful pa ttern of use of alcohol 06731729 F10.10 [id number] Scottie Beckwith DO [facility] ([facility]) [address] [id number] 04/28/2024 08:31:10 04/29/2024 22:57:54 Benign hypertension 21904709 I10 [id number] Scottie Beckwith [facility] ([facility]) [address] [place], [place] [address] 05/28/2024 08:50:40 06/03/2024 05:37:42 Benign hypertension 56953823 I10 Benign pro static hyperplasia with outflow obstruction 308423861 N13.8 [id number] Scottie Beckwith DO [facility] ([facility]) [address] [place], [place] [address] 06/23/2024 13:35:34 06/24/2024 07:47:44 Dry skin dermatitis 746235693 L85.3 [id number] Scottie Beckwith [facility] ([facility]) [address] [place] [address] 5 07/07/2024 08:05:51 07/16/2024 07:45:11 Benign hypertension 15102131 I10 Harmful pa ttern of use of alcohol 57340865 F10.10 [id number] Scottie Beckwith DO [facility] ([facility]) [address] [place], [place] [address] 07/30/2024 08:25:38 08/04/2024 16:16:00 Benign hypertension 27615594 I10 [id number] Scottie Beckwith [facility] ([facility]) [address] [place], [place] [address] 08/25/2024 16:50:12 08/26/2024 15:22:09 Benign hypertension 89648158 I10 [id number] Scottie Beckwith [facility] ([facility]) [address] [place], [place] [address] 09/22/2024 14:20:16 09/24/2024 11:25:13 Benign hypertension 93492360 I10 [id number] Scottie Beckwith [facility] ([facility]) [address] [address] 5 10/15/2024 10:07:01 10/17/2024 15:50:06 Benign hypertension 38117074 I10 [id number] Scottie Beckwith [facility] ([facility]) [address] [place] [address] 5 11/10/2024 13:15:25 11/11/2024 16:56:18 Benign hypertension 91822256 I10 [facility] 374532079 1 [id number] Scottie Beckwith [facility] ([facility]) [address] [place] [address] 5 12/10/2024 10:08:15 12/16/2024 16:32:59 Benign hypertension 15698735 I10 Harmful pa ttern of use of alcohol 64342415 F10.10 [id number] Scottie Beckwith [facility] ([facility]) [address] [address] 5 12/24/2024 11:57:05 12/29/2024 15:06:30 Infection of tooth 752231691 K04.7 [id number] Benign hypertension 1072 5009 I10 [id number] Scottie Beckwith [facility] ([facility]) [address] [place] [address] 5 02/02/2025 14:20:15 02/05/2025 16:49:13 Pressure injury of left foot stage II 3609873545 97077 L89.892 0153920231 Health Concerns Section Related Observation LastModified by Organization Detai ls LastModified Time None Recorded Concern Status LastModified by Organization Details LastModified Time None Recorded Advance Directives Directive None Recorded Payers Insurance Date Sequence Insurance Name Policy Number Policy Bañuelos Covered Member ID Bañuelos Member ID Guarantor Name 02/02/2025 1 [place] Barrett Leahy [id number] Barrett Leahy 02/02/2025 2 [place] Barrett Leahy [id number] Barrett Leahy 02/02/2025 [place] - [facility] (MEDICARE) Barrett Leahy [id number] Barrett Leahy 02/02/2025 [place] [facility] Barrett Leahy [id number] Barrett Leahy 03/06/2023 1 *SELF PAY* Dex Leahy Notes Date Note Type Note Provider Name and Address Organization Details Recorded Time 11/10/2024 text/html Care Management - GeneralReported by PatientIFor prognosis, patient reportsexpected outcome: improveandprognosis: moderate. For context, patient reportsnot current smoker.ROS as noted in the HPI no concerns per staff or pt. Scottie Beckwith [address] [place] [address], [phone], [facility] 11/10/2024 16:40:38 12/10/2024 text/html Care Management - GeneralReported by [facility], patient reportsexpected outcome: improveandprognosis: moderate. For context, patient reportsnot current smoker.ROS as noted in the HPI no concerns per staff or pt. Scottie BeckwithDO [address] [place] [address], [phone], [facility] 12/16/2024 16:03:43 12/24/2024 text/html Care Management - GeneralReported by PatientIFor prognosis, patient reportsexpected outcome: improveandprognosis: moderate. For context, patient reportsnot current smoker.ROS as noted in the HPI c/o dental pain on left side Scottie Beckwith [address] [place] [address], [phone], [facility] 12/24/2024 15:05:46 02/02/2025 text/html Care Management - GeneralReported by [facility], patient reportsexpected outcome: improveandprognosis: moderate. For context, patient reportsnot current smoker.ROS as noted in the HPI staff reports pressure ulcer on left foot. Scottie Beckwith [address] [place] [address], [phone], [facility] 02/04/2025 14:49:13
--- OUTSIDE RECORDS SUMMARY | 2025-03-16 08:41 | XMS_ITS | Continuity of Care Document ---
Author Organization [facility] L.LBandar, [facility] ([facility]) Address [address] [place] [address] Assessment No assessment recorded. Plan of Treatment [...] Modified By Organization Details Last Modified Time 02/02/2025 4679470 tx with skin pre p and offload pressure. Will have staff put lotion on feet bid. [email or web address] Not available 02/02/2025 16:09:13 Reason for Referral None Reported. Problems Name Problem SNOMED Code Status Onset Date Resolution Date Notes Provider Name and Address Organization Details Recorded Time Vasectomy Active 2008 Vasecto my; 009 12:12PM by Olinda Zhou LPN, Office Visit; Promote d; acuity set as *; Not Available [facility] 3 03:18:17 Benign hypertensi on 59666061 Active 2008 HTN; 009 12:11PM by Olinda Zhou LPN, Office Visit; Promote d; acuity set as *; Not Available [facility] 3 03:18:17 Hospital inpatient stay within past 30 days 147430881876 6 Active 2022 JACKSON evangelista [facility], LErica[facility]ar 3 08:40:12 Hyponatrem de 07969072 Active 2022 JACKSON [facility] 3 08:40:44 Rhabdomyol ysis 800893944 Active 2022 JACKSON [facility] 3 08:40:44 Acute urinary tract infection 150675633 Active 2022 [facility] 3 08:40:46 Harmful pattern of use of alcohol 75697017 Active 2022 [facility] 3 08:40:48 Neuropathy 333354521 Active 2022 JACKSON [facility] 3 08:40:49 Vitamin D deficiency 18972779 Active 2022 [facility] 3 11:59:20 Tinea capitis 2514824 Active 2023 [facility] 4 12:09:34 Tinea pedis 0843873 Active 2023 JACKSON [facility] 4 12:09:35 Eruption 183638704 Active 2024 JACKSON [facility] 5 16:19:19 Problem Notes None recorded. [...] Not Available Not Available Vitals Date Recorded Heart rate Respiratory rate Body temperature Oxygen saturation Systolic And Diastolic Provider Name and Address Organization Details Last Updated DateTime 5 84 /min 18 /min 97.8 [degF] 94 % 138/72 mm[Hg] JACKSON ZUNIGA [facility] 5 16:06:30 Social History None recorded. Functional Status None recorded. Mental Status None recorded. Family History Nothing Reported Notes:HTN- Maternal grandfat her, Colon [place]-Mother Medical History No medical history recorded. Past Encounters Encounter ID Performer Location Encounter Start Date Encounter Closed Date Diagnosis/Indication Diagnosis SNOMED-CT Code Diagnosis ICD10 Code Diagnosis IMO Codes Diagnosis Note [id number] Scottie Beckwith DO [facility] ([facility]) [address] [place] [address] 02/02/2025 14:20:15 02/05/2025 16:49:13 Pressure injury of left foot stage II 9737027148 97195 L89.892 8461385422 Health Concerns Section Related Observation LastModified by Organization Detai ls LastModified Time None Recorded Concern Status LastModified by Organization Details LastModified Time None Recorded Payers Encounter Date Sequence Insurance Name Policy Number Policy Bañuelos Covered Member ID Bañuelos Member ID Guarantor Name 02/02/2025 1 [place] Barrett Leahy [id number] Barrett Leahy 02/02/2025 2 [place] Barrett Leahy [id number] Barrett Leahy Notes Date Note Type Note Provider Name and Address Organization Details Recorded Time 02/02/2025 text/html Care Management - GeneralReported by PatientHPIFor prognosis, patient reportsexpected outcome: improveandprognosis: moderate. For context, patient reportsnot current smoker.ROS as noted in the HPI staff reports pressure ulcer on left foot. Scottie Beckwith, DO [address] [place] [address], [phone], [facility] 02/04/2025 14:49:13
--- OUTSIDE RECORDS SUMMARY | 2025-03-16 08:41 | XMS_ITS ---
Author Organization [facility] are Care Team Providers Care Crts Name Role Phone Deepak Yanez Unavailable Unavailable Scottie Beckwith Unavailable Unavailable Gautam Kumari Unavailable Unavailable Gaston Lugo Unavailable Unavailable Yan Negrete Unavailable Unavailable Onelia Yanez Unavailable Unavailable Olinda Allison Unavailable Unavailable Doe Chino Unavailable Unavailable Boogie Sharma Unavailable Unavailable Allergies and adverse reactions No Known Allergies Care Team Name Role Address Phone Organization Dates Scottie Beckwith PCP [address] [place], [address], [place] (Office): [facility] 02/28/2023 - present Deepak Yanez [address] [place], [address], [place] (Office): : [facility] 02/28/2023 - present Gautam Kumari [address] [place], [address], [place] (Office): [facility] 02/28/2023 - present Gastonhernan Lugo [address] [place], [address], [facility] (Office): [facility] 02/28/2023 - present Yansita Negrete [address], [place], [address], [facility] (Office): : [facility] 02/28/2023 - present Onelia Yanez [address], [place], [address], [facility] (Office): : [facility] 02/28/2023 - present Olinda Allison [address] [place], [address], [facility] (Office): [facility] 02/28/2023 - present Doe Chino [address] [place], [address], [facility] (Office): [facility] 02/28/2023 - present Boogie Sharma [address] [place] [address], [facility], [facility] (Office): [facility] 02/28/2023 - present Encounters Encounter Type Code Code System Description Performer Discharge Disposition Service Delivery Location Date Ambulatory Encounter CPT Code = [id number] Rhabdomyolysis [facility] Address: [address] [place] [address], [address] [place] [address]. 02/28 Ambulatory Encounter CPT Code = [id number] Hypertensive heart disease without congestive heart failure [facility] Address: [address] [place] [address], [address] [place] [address]. 02/28 Ambulatory Encounter CPT Code = [id number] Chronic alcoholism in remission [facility] Address: [address] 02/28 Ambulatory Encounter CPT Code = [id number] Disorder of head [facility] Address: [address] [place] [address]. 02/28 Ambulatory Encounter CPT Code = [address] Tinea pedis [facility] Address: [address] [place] [address]. 02/28 Ambulatory Encounter CPT Code = [id number] Seborrheic dermatitis of scalp [facility] Address: [address] [place] [address]. 02/28 Ambulatory Encounter CPT Code = [id number] Postoperative complication [facility] Address: [address] [place] [address]. 02/28 Ambulatory Encounter CPT Code = [id number] COVID-19 [facility] Address: [address] [place] [address]. 02/28 Ambulatory Encounter CPT Code = [id number] Disorder of integument [facility] Address: [address] [place] [address]. 02/28 Ambulatory Encounter CPT Code = [id number] Hyperlipidemia [facility] Address: [address] [place] [address]. 02/28 Ambulatory Encounter CPT Code = [id number] Cellulitis [facility] Address: [address] [place] [address]. 02/28 Ambulatory Encounter CPT Code = [id number] Peripheral vascular disease [facility] Address: [address] [place] [address]. 12/06 /2023 Ambulatory Encounter CPT Code = [id number] Constipation [facility] Address: [address] [place] [address]. 02/28 Ambulatory Encounter CPT Code = [id number] Adult failure to thrive syndrome [facility] Address: [address] [place] [address]. 02/28 Ambulatory Encounter CPT Code = [id number] Pain [facility] Address: [address] [place] [address]. 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 02/28 Ambulatory Encounter CPT Code = [id number] Vitamin deficiency [facility] Address: [address] [place] [address]. 02/28 Ambulatory Encounter CPT Code = [id number] Active or passive immunization [facility] Address: [address] [place] [address]. 02/28 Ambulatory Encounter CPT Code = [id number] Alcohol abuse [facility] Address: [address] [place] [address]. 02/28 Ambulatory Encounter CPT Code = [id number] Essential hypertension [facility] Address: [address] [place] [address]. 02/28 Goals Section Goals Description Status Target Date All goals will be reviewed a nd updated as needed with completion of the assessment process of the BILLY unless otherwise stated in the individualized goal Active 06/02/2025 Barrett will cooperate with care through next revi ew date Active 06/02/2025 Barrett will develop communication abilities by e review date. Active 06/02/2025 Barrett will increase level of mobility by through the next review date. Active 06/02/2025 Barrett will remain free of co mplications related to immobility, including contractures, thrombus formation, skin-breakdown, fall related injury through the next review date. Active Resident will not have adver se effects r/t usage of medications with Black Box Warnings. Active 06/02/2025 Resident will remain free fr om s/s Covid-19 virus through review date Active 06/02/2025 The resident will be able to communicate basic needs on a daily basis through the review date. Active 06/02/2025 The resident will be able to make basic needs known on a daily basis through the review date. Active 06/02/2025 The resident will be contine nt during waking hours through the review date. Active 06/02/2025 The resident will be free of infection, pain or bleeding in the oral cavity by review date. Active 06/02/2025 The resident will comply wit h mouth care at least daily through review date. Active 06/02/2025 The resident will develop sk ills to cope with cognitive decline and maintain safety by the review date. Active 06/02/2025 The resident will have intac t skin, free of redness, blisters or discoloration by/through review date. Active 06/02/2025 The resident will improve co mmunication function through the review date. Active 06/02/2025 The resident will improve cu rrent level of cognitive function through the review date. Active 06/02/2025 The resident will remain belen e from skin breakdown due to incontinence and brief use through the review date. Active The resident will restore communication losses b y the review date. Active 06/02/2025 The resident will resume usu al activities without further incident through the review date. Active 06/02/2025 The resident's risk for sept icemia will be minimized/prevented via prompt recognition and treatment of symptoms of UTI through the review date. Active 06/02/2025 Will have documented healing of current wound to toe Active 06/02/2025 Functional Status Code Name Recorded Time Value Entered By Ambulation 03/15/2025 Not assessed kbaldridge Ambulation 03/15/2025 Not assessed kbaldridge Ambulation 03/15/2025 Not assessed kbaldridge Ambulation 03/15/2025 Not assessed kbaldridge Bathing 02/20/2025 Extensive Assistance yolandain s Dressing 03/15/2025 Extensive Assistance adolfo harkinse Feeding or Eating 03/15/2025 Independent kbaldridge Toileting 03/16/2025 Extensive Assistance jarod kaur Transferring 03/15/2025 Not assessed kbaldridge Immunizations Immunization Status Vaccine Details Vaccine Code CodeSystem Date Notes Influenza completed Influenza, high-dose, split virus, quadrivalent, injectable, preservative free lotNumber: [id number] expiry: 08/22/2025 Mfg: Seqirus PTYLTD Given Right Deltoid intramuscularly 197 CVX created date: 01/09/2025 administer ed date: 01/07/2025 Influenza cancelled Influenza, high-dose, split virus, quadrivalent, injectable, preservative free 197 CVX created date: 03/01/2023 consent date: 03/01/2023 SARS-COV-2 (COVID-19) cancelled SARS-COV-2 (COVID-19) vaccine, mRNA, spike protein, LNP, bivalent, preservative free, 50 mcg/0.5 mL or 25 mcg/0.25 mL dose 229 CVX created date: 03/01/2023 consent date: 03/01/2023 SARS-COV-2 (COVID-19) cancelled SARS-COV-2 (COVID-19) vaccine, mRNA, spike protein, LNP, bivalent, preservative free, 50 mcg/0.5 mL or 25 mcg/0.25 mL dose 229 CVX created date: 03/01/2023 consent date: 03/01/2023 SARS - COV2 (Moderna) Booster cancelled SARS-COV-2 (COVID-19) vaccine, mRNA, spike protein, LNP, preservative free, 100 mcg/0.5mL dose or 50 mcg/0.25mL dose 207 CVX created date: 04/05/2023 consent date: 04/05/2023 Prevnar 20 cancelled Pneumococcal conjugate vaccine 20-valent (PCV20), polysaccharide [id number] conjugate, adjuvant, preservative free 216 CVX created date: 03/01/2023 consent date: 03/01/2023 Moderna Bivalent cancelled SARS-COV-2 (COVID-19) vaccine, mRNA, spike protein, LNP, bivalent, preservative free, 50 mcg/0.5 mL or 25 mcg/0.25 mL dose 229 CVX created date: 04/05/2023 consent date: 04/05/2023 Influenza, seasonal, injectable completed Influenza, split virus, trivalent, injectable, contains preservative lotNumber: [id number] expiry: 09/22/2024 Mfg: Casacanda Given 0.5 ml Left Deltoid intramuscularly 141 CVX created date: 01/09/2024 consent date: 01/09/2024 administer ed date: 01/09/2024 Educated by sam on 01/09/2024 Medications Section Medication Name Status Code CodeSystem Dose Route Frequency Admin Type Sig Text Start Date End Date Indication Clopidogrel Bisulfate Oral Tablet 75 MG active 51700 2 RXNORM 1 table t Oral one time a day Routin e Give 1 table t by mouth one time a day for Proph lainei s 2022 - Prophylaxis Albuterol Sulfate Inhalation Aerosol Powder Breath Activated 108 (90 Base) MCG/ACT active 11707 60 RXNORM 3 inhal ation Inhala tion as needed PRN 3 inhal ation inhal e orall y every 4 hours as neede d for Short ness of Breat h 2022 - Shortness of Breath Dulcolax Suppository 10 MG active 08607 1 RXNORM 1 suppo sitor y Rectal as needed PRN Inser t 1 suppo sitor y recta lly every 24 hours as neede d for const ipati on 2022 - constipatio n Milk of Magnesia Suspension 400 MG/5ML active 72000 7 RXNORM 30 ml Oral as needed PRN Give 30 ml by mouth every 24 hours as neede d for const ipati on 2022 - constipatio n Fleet Enema Enema 7-19 GM/118ML active 22662 5 RXNORM 1 appli catio n Rectal as needed PRN Inser t 1 appli catio n recta lly every 24 hours as neede d for const ipati on 2022 - constipatio n Atorvastati n Calcium Oral Tablet 40 MG active 26370 1 RXNORM 1 table t Oral one time a day Routin e Give 1 table t by mouth one time a day for HYPER LIPID EMIA 2022 - HYPERLIPIDE ANGI Nystatin External Powder 712504 UNIT/GM active 18028 6 RXNORM n/a n/a Topica l two times a day Routin e Apply to groin BL topic ally two times a day for SELVIN DIASI S 2022 - CANDIDIASIS Acetaminoph en Tablet 325 MG active 27631 2 RXNORM 2 table t Oral as needed PRN Give 2 table t by mouth every 6 hours as neede d for gener al disco mfort or fever 2023 - general discomfort or fever Ketoconazol e External Shampoo 2 % active 30989 6 RXNORM n/a n/a Topica l as needed PRN Apply to scalp topic ally as neede d for SEBOR ALEIDA CAPIT IS (L21. 0) use on showe r days. 2023 - SEBORRHEA CAPITIS (L21.0) Tamsulosin HCl Oral Capsule 0.4 MG active 52988 9 RXNORM 1 capsu le Oral at bedtime Routin e Give 1 capsu le by mouth at bedti me for Urina ry reten tion 2024 - Urinary retention Mental Status Section Date Assessment Total Score Description 02/24/2025 BIMS 07 severe cognitiv e impairment CAM 0 No delirium ind icated PHQ-9 00 12/02/2024 BIMS 13 cognitively int act CAM 0 No delirium ind icated PHQ-9 00 Insurance Providers Coverage Status Coverage Type Relationship to Subscriber Member Identifier Subscriber Identifier Group Identifier Payer Identifier and Other information Code: 2 Code System OID:[id number]. 3.221.5 Code System Name: Source of Payment Typology (PHDSC) Display: Medicaid Translation : Code: 48 Code System: OID:[id number]. 6.255.1336 Code System Name: Insurance Type Code ([id number]) Display Name: Medicaid Code: 81 Code System OID:84 0.1.937290. 3.221.5 Code System Name: Source of Payment Typology (PHDSC) Display: Self Pay Translation : Code: Code System: OID:[id number] 0.1.816783. 6.255.1336 Code System Name: Insurance Type Code ([id number]) Display Name: Self-pay 2023 Code: 1 Code System OID:216.84 0.1.619493. 3.221.5 Code System Name: Source of Payment Typology (PHDSC) Display: Medicare Translation : Code: MB Code System: OID:21684 0.1.754031. 6.255.1336 Code System Name: Insurance Type Code ([id number]) Display Name: Medicare Part B Code: SELF Code System Name: HL7 RoleCode Code System OID:840.1 .727625.5.111 Display Name: Self [id number] Root: [id number] Address: Code: 2 Code System OID:[id number] 0.1.483118. 3.221.5 Code System Name: Source of Payment Typology (PHDSC) Display: Medicaid Translation : Code: 48 Code System: OID:21684 0.1.462795. 6.255.1336 Code System Name: Insurance Type Code ([id number]) Display Name: Medicaid 2023 Code: 1 Code System OID:21684 0.1.143401. 3.221.5 Code System Name: Source of Payment Typology (PHDSC) Display: Medicare Translation : Code: MB Code System: OID:16 0.1.623532. 6.255.1336 Code System Name: Insurance Type Code ([id number]) Display Name: Medicare Part B Code: SELF Code System Name: HL7 RoleCode Code System OID:840.1 .442459.5.111 Display Name: Self [id number] Root: [id number] Payer Name: Medicare Part B Address: [address] City: [place] State: [place] Country: [place] Plan of Treatment Section Interventions Intervention Code Code System Display Name Proposed D ate Problems Problem # Description Date of onset Resolved Date Code CodeSystem Concern Status 1 ALCOHOL DEPENDENCE, IN REMISSION 09/11/[address] active 2 TINEA BARBAE AND TINEA CAPITIS 02/26/2024 02/23/[address] completed 3 TINEA PEDIS 02/26/2024 02/23/[address] comp leted 4 SEBORRHEA CAPITIS 06/21/2023 02/23/[address] completed 5 DISRUPTION OF WOUND, UNSPECIFIED, INITIAL ENCOUNTER 04/19/2023 11/26/[address] completed 6 COVID-19 03/27/2023 06/04/[address] compl eted 7 CANDIDIASIS OF SKIN AND NAIL 03/22/2023 02/23/[address] completed 8 HYPERLIPIDEMIA, UNSPECIFIED 03/07/[address] active 9 ADULT FAILURE TO THRIVE 02/28/[address] active 10 ALCOHOL ABUSE WITH WITHDRAWAL, UNSPECIFIED 02/28/2023 08/24/[address] completed 11 CELLULITIS, UNSPECIFIED 02/28/2023 06/04/[address] completed 12 CONSTIPATION, UNSPECIFIED 02/28/[address] active 13 ENCOUNTER FOR IMMUNIZATION 02/28/2023 02/23/[address] completed 14 ESSENTIAL (PRIMARY) HYPERTENSION 02/28/2023 11/24/[address] completed 15 FOLATE DEFICIENCY ANEMIA, UNSPECIFIED 02/28/[address] active 16 HYPERTENSIVE HEART DISEASE WITHOUT HEART FAILURE 02/28/[address] active 17 PAIN, UNSPECIFIED 02/28/[address] active 18 PERIPHERAL VASCULAR DISEASE, UNSPECIFIED 02/28/[address] active 19 RHABDOMYOLYSIS 02/28/2023 06/04/[address] completed 20 VITAMIN DEFICIENCY, UNSPECIFIED 02/28/[address] active Reason for Referral No Reasons for Referral Entered Social History Social History Observation Description Start Date End Date Code Code System Current Smoking Status Tobacco smoking consumption unknown 293774222 SNOMED CT Sex Assigned At Male 1955 11234-9 [facility] Gender Identity Male 03485079047053 [address] Sexual Orientation Heterosexual (finding) 14176991 SNOMED CT Vital Signs Code Code System Vitals Name Values and Units Timing Information 9279-1 [facility] Respiratory Rate Value=22.0 Units=/m in 03/16/2025 8462-4 [facility] Blood Pressure-Diastolic Value=80 Un its=mmHg 03/16/2025 8480-6 [facility] Blood Pressure-Systolic Pdmkb=257 Un its=mmHg 03/16/2025 8310-5 [facility] Body Temperature Value=98.9 Units= F 03/16/2025 8867-4 [facility] Heart rate Value=84.0 Units=/min 13266-3 [facility] O2 % BldC Oximetry Value=91.0 Units= % 03/16/2025 74919-4 [facility] Weight Ulmhd=298.0 Units=Lbs 89195-1 [facility] Pain Level Value=0.0 02/16/2025 8302-2 [facility] Height Value=73.0 Units=Inches 02/28/2023
[2025-03-16 08:54] LABS: Hematocrit 43.1 % (37-53); Hemoglobin 13.60 g/dL (11.27-16.99); Mean Corpuscular HGB Conc 31.6 g/dL (30-55); Mean Corpuscular Hemoglobin 29.6 pg (27-33); Mean Corpuscular Volume 93.9 fl (82-101); Nucleated Red Blood Cells % 0 %; Platelet Count 291 10^3/cmm (157-399); Red Blood Count 4.59 10^6/uL (3.85-5.65); White Blood Count 7.64 10^3/uL (3.29-11.43)
[2025-03-16 09:10] LABS: Lactic Sepsis W/Reflex 2.2 mmol/L (0.5-2.2)
[2025-03-16 09:14] LABS: Alanine Aminotransferase 14 U/L (0-41); Albumin Level 3.6 g/dL (3.5-5.2); Alkaline Phosphatase 94 U/L (40-130); Anion Gap 17.3 (5-19); Aspartate Amino Transferase 19 U/L (0-40); Blood Urea Nitrogen 14 mg/dL (8-23); Calcium 8.9 mg/dL (8.5-10.5); Carbon Dioxide 24 mmol/L (22-29); Chloride 103 mmol/L (98-107); Globulin 3.6 g/dL (1.3-4.6); Glucose 144 mg/dL (65-115); Osmolality Calculated 293 mOsm/kg (285-295); Potassium 4.3 mmol/L (3.5-5.1); Sodium 140 mmol/L (136-145); Total Protein 7.2 g/dL (6.6-8.7)
--- NOTE | 2025-03-16 10:07 | CT_ITS ---
WS: [id number] CT ANGIOGRAPHY OF THE ABDOMINAL AORTA WITH RUNOFF TO THE ANKLES HISTORY: pvd, left infection TECHNIQUE: Arterial injection is performed during imaging to evaluate the aorta and runoff vessels to the ankles. MIP and volume rendering imaging has also been performed. All images are reviewed. All CT scans at [facility] use at least one of these dose optimization techniques: automated exposure control; mA and/or kV adjustment per patient size (includes targeted exams where dose is matched to clinical indication); or iterative reconstruction. Contrast: Omnipaque 350; 100 mL IV. DLP: 2469.56 mGy.cm COMPARISON: 02/25/2023 Normal size aorta with atherosclerotic calcifications. Calcifications extend into the celiac axis, SMA and renal arteries. Mild stenosis celiac axis and SMA and renal arteries. Kidneys are normally enhancement. RIGHT renal cyst. NAGA is patent. Atherosclerotic plaque continues into the iliac arteries. LEFT lower extremity: Patient is unable to straighten the LEFT lower extremity and the knee is flexed. Heavily calcified plaque in the iliac arteries. External iliac artery is patent to the femoral artery. At the femoral artery there is a new, complete occlusion. Deep profundus intact. Densely calcified femoral artery with partial limited reconstitution. The extent of reconstitution is difficult to determine with the extent of plaque. Intermittent visualization of contrast. No contrast opacification in the popliteal artery or in the infrapopliteal arteries. Heavily calcified distal arteries. RIGHT lower extremity: Increasing atherosclerosis in the iliac and femoral arteries. Heavily calcified arteries throughout the lower extremity. Partial visualization of the femoral artery. Intermittent occlusions. The dense calcified plaque obscures the lumen. There hide areas of stenosis and probable occlusions. The extent of patency below the knees is difficult to determine with the extent of plaque. No ascites or adenopathy. No adenopathy in the abdomen or pelvis. CT/CT angio abd aorta runof 91616 IMPRESSION: 1. New, complete occlusion LEFT lower extremity beginning in the proximal femo ral artery. The deep profundus remains intact. 2. There is extensive circumferential calcified plaque throughout the LEFT low er extremity arteries. There may be some component of reconstitution but of lit tle significance. Heavily calcified popliteal and infrapopliteal arteries. No s ignificant amount of flow is identified distal LEFT lower extremity. 3. Heavily calcified plaque in the RIGHT femoral artery into the popliteal art patricia and infrapopliteal arteries. Similar findings as compared to 02/25/2023. The extent of stenosis and occlusions are difficult to quantify due to the heavy c alcification in the arteries. 4. Extensive atherosclerosis in the abdominal aorta and mesenteric arteries an d renal arteries.
[2025-03-16] MEDS: HYDROmorphone 0.5 MG/0.5 ML INJ IVP (10:19)
[2025-03-16] MEDS: ondansetron 2 mg/ML SDV 2 mL 4 MG IVP (10:20)
[2025-03-16] MEDS: cefepime 2,000 mg SDV 2000 MG IVP (10:21)
--- NOTE | 2025-03-16 10:24 | PC.PHAR ---
Pt is now a resident at [facility]
--- NOTE | 2025-03-16 10:31 | P.CONIM_ITS ---
Providers/Reason For Consult 2 Consulting Physician/Specialty*: Odell Padilla D.P.M./podiatry Reason for Consult*: Dry gangrene left foot History of Present Illness History of Present Illness Barrett Leahy is a 69 year old male presenting with gangrene of the left foot. Dry Gangrene of Left Foot: The patient presented to the emergency department with peripheral vascular disease, poor pulses, ischemic rubor, and dry gangrenous changes involving the first and second toes of the left foot. The condition has been present for a while. The gangrene is stable and not causing systemic illness. Social History: He has a history of smoking and quit about a year ago. He resides in a half-way and uses a wheelchair for mobility. Previous diagnosis include alcohol abuse, adult failure to thrive. He is unable to relate to me which half-way he resides at. Impaired Mobility: The patient is unable to stand on his left leg and ambulates via wheelchair. His left knee is reportedly locked and will not fully straighten. He can bear weight on his right leg and hops on that side to transfer. Review of Systems 2 General: Reports: 10 or more systems reviewed and unremarkable except in HPI and below Narrative: - Constitutional: Denies feeling systemi jhony ill. - Musculoskeletal: Reports the left knee is locked up and will not straighten. Reports inability to bear weight on the left leg. Denies left knee pain. - Neurological: Reports pain in the left foot. Const: Denies: fever(s) or chills Eyes: Denies: change in vision Card: Denies: chest pain or palpitations Resp: Denies: dyspnea or productive cough GI: Denies: abdominal pain, nausea or vomiting : Denies: flank pain Musc: Reports: extremity swelling, joint stiffness and deformity Skin/Breast: Reports: erythema, sores, changes in skin color, dry skin, nail changes and change in hair Neuro: Reports: numbness in extremities, sensory changes and difficulty walking Psych: Denies: suicidal ideation Endo: Denies: change in body appearance Braydon/Lymph: Denies: tender lymph nodes Medications/Allergies Home Medications ?Medication ?Instructions ?Recorded ?Confirmed ?Last Taken ?Type albuterol sulfate 90 mcg/actuation 3 inh inhalation Q4 H PRN shortness 02/28/23 03/16/25 Unknown Rx breath activated powder inhaler of breath #1 ea clopidogrel 75 mg tablet 75 mg PO DAILY #30 tabs 09/1503/16/25 03/15/25 Rx atorvastatin 40 mg tablet 40 mg PO DAILY #30 tabs 02/2303/16/25 03/15/25 Rx acetaminophen 325 mg tablet 650 mg PO Q6H PRN fever/ge neral 03/16/25 03/16/25 02/16/25 History discomfort ketoconazole 2 % shampoo See Rx Instructions .Route . COMPLEX 03/16/25 03/16/25 Unknown History magnesium hydroxide 400 mg/5 mL 30 ml PO DAILY PRN Con stipation 03/16/25 03/16/25 03/12/25 History oral suspension (Milk of Magnesia) nystatin 100,000 unit/gram topical See Rx Instructions .Route .COMPLEX 03/16/25 03/16/25 03/15/25 History powder sodium phosphates 19 gram-7 118 ml [place] DAILY PRN Consti pation 03/16/25 03/16/25 Unknown History gram/118 mL enema (Fleet Enema) tamsulosin 0.4 mg capsule 0.4 mg PO BEDTIME 03/16/25 1 05/17/24 03/15/25 History Allergies Allergy/AdvReac Type Severity Reaction Status Date / Time No Known Allergies Allergy Verified 02/19/23 20:05 Current Medications Generic Name Dose Route Start Last Admin Trade Name Freq PRN Reason Stop Dose Admin Vancomycin HCl 2,000 mg in 400 mls @ 200 mls/hr 03/16/25 09:52 03/16/25 10:26 Vancocin IV 03/16/25 11:51 200 mls/hr ONCE ONE Administration Protocol Vitals/I&O/Wt Last Vital Signs Temp 98.9 F 03/16/25 08:35 Pulse 89 03/16/25 10:09 Resp 16 03/16/25 10:09 BP 152/91 03/16/25 10:09 Pulse Ox 90 03/16/25 10:09 O2 Del Method Room Air 03/16/25 10:09 Weight last 48 hrs Weight 200 lb Physical Exam 2 Narrative: VASCULAR: Dorsalis pedis poor pulses, posterior tibial arteries poor pulses. Capillary refill time less than 2 seconds to the distal hallux bilaterally. Calf is supple and nontender proximally and distally. Left foot has gangrenous changes with dry gangrene involving the first toe or great toe and second toe. NEUROLOGICAL: Protective sensation intact at multiple sites, tested with [place] Sanjuanita monofilament to bilateral feet. No great pulse on the left foot. DERMATOLOGICAL: Ischemic foot with rubor and dry gangrenous changes on the left forefootBlack eschar to left great toe second toe and third toe. No purulent drainage. MUSCULOSKELETAL: Patient uses a wheelchair and cannot put weight on the left side. The knee is locked up and does not straighten out. Can put weight on the right side. Data 03/16/25 08:39 03/16/25 08:39 A&P Assessment and plan 1. Dry gangrene: 2. Peripheral arterial disease: Plan: X-ray left foot 3 views negative for osteomyelitis negative for soft tissue emphysema, there is M?nckeberg's arteriosclerosis of dorsalis pedis and posterior tibial arteries. This is a 69-year-old male with a history of tobacco use and peripheral vascular disease presenting with dry gangrene of the left foot. He has dry, stable gangrene affecting the first and second toes, secondary to severe peripheral artery disease as evidenced by poor pedal pulses and ischemic rubor. The condition is not considered an acute emergency requiring immediate surgery as the gangrene is not wet and is not causing systemic illness. The primary concern is the compromised arterial inflow to the foot, which makes the healing potential of a distal amputation highly questionable. While an amputation behind the toes is the minimum level of surgical intervention required, its success is dependent on first improving blood flow. Failure to restore adequate perfusion may necessitate a higher-level amputation. The patient's comorbid left knee contracture and wheelchair dependency are also noted, impacting his overall functional status. 1. Dry Gangrene / Peripheral Artery Disease Of Left Foot The immediate plan is to improve blood flow to the left foot prior to any surgical intervention. A consultation will be made with a tank builder to assess the feasibility of revascularization, possibly through stenting. Surgical amputation is deferred until after the vascular assessment. If blood flow can be restored, the goal will be a partial foot amputation to preserve as much function as possible, allowing for standing, walking, and shoe use. The patient was counseled that a higher-level amputation may be necessary if revascularization is not successful. - You have a condition called dry gangrene on your first two toes. This means the tissue has because of poor blood flow. It is stable and does not require emergency surgery right now. - The first and most important step is to try and improve the blood flow to your extremity. - After we know if your blood flow can be improved, we will discuss the next steps, which will involve surgery which would entail likely transmetatarsal amputation. - Our goal is to save as much of your foot as we can so that you can still stand, walk, and wear a shoe. Ultimately there is a risk that higher level amputation such as below-knee amputation may be needed. PDMP PDMP Reviewed: Not Reviewed Coding Level of Care Code Acute Code for [facility] Diagnoses Dry gangrene I96 Peripheral arterial disease I73.9
[2025-03-16 10:35] LABS: Reflex Lactate Order REFLEX LACTIC ORDERD
[2025-03-16] MEDS: iohexol 350 mg/mL 500 mL Btl (per mL) IV (11:22)
[2025-03-16] MEDS: heparin 5,000 unit/mL INJ 1 mL IVP (11:32)
--- NOTE | 2025-03-16 11:32 | P.HP_ITS ---
<Statement entered by Espinoza Krishnamurthy MD - 03/16/25 18:08> Patient with severe peripheral artery disease, seen by podiatry. Consult cardiology for evaluation for revascularization before intervention. Recommend starting heparin GTT, consider transition to Lovenox by tomorrow. Admitting as inpatient. I have read the PEREZ's note, assessment and plan and I agree. Providers/Chief Complaint 2 Admitting Physician: Dr. Krishnamurthy Chief Complaint: lower ext pain History of Present Illness Barrett Leahy is a 69 year old male w/ pmhx hyperlipidemia, HTN, HLD PAD, failure to thrive, and BPH presents to via EMS from SNF the ED with c/o worsening redness and swelling to the left foot. Chronic appearing wounds on the first 3 toes of the left foot swelling w/ redness proximal to this on the distal end of the foot. Pulses are noted to be diminished. Patient reports he has had the wounds on his foot for weeks. He reports a 4/10 on pain scale, he denies alleviating factors to help with pain. He denies known fevers, headache, chest pain, shortness of breath, palpitations, N/V/D/C, changes in urinary and bowel habits, and any recent medication changes. He denies patient to be admitted under inpatient status with hospitalist services and podiatry consultation service, and cardiology consultation service for further medical management and care. While in ED a CBC, CMP, ESR, lactic acid, CRP was obtained, reviewed, and results as follows: CBC appears unremarkable. Glucose 144, otherwise CMP unremarkable. Lactic acid 2.2, CRP 32.6, ESR 63. While in ED the following medications were administered: Vancomycin 2000 mg IV, cefepime 2000 mg IVP, Dilaudid 0.5 mg IVP, Zofran 4 mg IVP, heparin drip titrated per protocol. Review of Systems 2 General: Reports: 10 or more systems reviewed and unremarkable except in HPI and below Medications/Allergies Home Medications ?Medication ?Instructions ?Recorded ?Confirmed ?Last Taken ?Type albuterol sulfate 90 mcg/actuation 3 inh inhalation Q4 H PRN shortness 02/28/23 03/16/25 Unknown Rx breath activated powder inhaler of breath #1 ea clopidogrel 75 mg tablet 75 mg PO DAILY #30 tabs 09/1503/16/25 03/15/25 Rx atorvastatin 40 mg tablet 40 mg PO DAILY #30 tabs 02/2303/16/25 03/15/25 Rx acetaminophen 325 mg tablet 650 mg PO Q6H PRN fever/ge neral 03/16/25 03/16/25 02/16/25 History discomfort ketoconazole 2 % shampoo See Rx Instructions .Route . COMPLEX 03/16/25 03/16/25 Unknown History magnesium hydroxide 400 mg/5 mL 30 ml PO DAILY PRN Con stipation 03/16/25 03/16/25 03/12/25 History oral suspension (Milk of Magnesia) nystatin 100,000 unit/gram topical See Rx Instructions .Route .COMPLEX 03/16/25 03/16/25 03/15/25 History powder sodium phosphates 19 gram-7 118 ml [place] DAILY PRN Consti pation 03/16/25 03/16/25 Unknown History gram/118 mL enema (Fleet Enema) tamsulosin 0.4 mg capsule 0.4 mg PO BEDTIME 03/16/25 1 05/17/24 03/15/25 History Allergies Allergy/AdvReac Type Severity Reaction Status Date / Time No Known Allergies Allergy Verified 02/19/23 20:05 Vitals/I&O/Wt Last Vital Signs Temp 98.9 F 03/16/25 08:35 Pulse 89 03/16/25 10:09 Resp 16 03/16/25 10:09 BP 152/91 03/16/25 10:09 Pulse Ox 90 03/16/25 10:09 O2 Del Method Room Air 03/16/25 10:09 03/15/25 03/16/25 03/16/25 22:59 06:59 14:59 Intake Total 400 / 400 Balance 400 / 400 Weight last 48 hrs Weight 106.594 kg Weight 90.718 kg Physical Exam 2 Narrative: General: A&Ox4, even tempered and composed. No apparent distress. HEENT: Normo-cephalic, atraumatic, grossly unremarkable exam Cardio: NSR, normal S1-S2 w/o any murmurs, rubs, or gallops and JVD normal Respiratory: Clear to bilateral upper lobes and crackles to bilateral lower lobes on auscultation GI: Abd soft, non-tender, non-distended, normo-active bowel sounds present Neuro: No sensory deficits, Normal speech Behavior: Appropriate and cooperative Extremities: Patient uses a wheelchair and cannot put weight on the left side. The knee is locked up and does not straighten out. Can put weight on the right side. Ischemic foot with rubor and dry gangrenous changes on the left forefoot. Black eschar to left great toe second toe and third toe. No purulent drainage. Pulses are noted to be diminished. Data 03/16/25 08:39 03/16/25 08:39 Other Labs: 03/16: Aorta with runoff CTA: Reviewed and results as follows: New, complete occlusion LEFT lower extremity beginning in the proximal femoral artery. The deep profundus remains intact. There is extensive circumferential calcified plaque throughout the LEFT lower extremity arteries. There may be some component of reconstitution but of little significance. Heavily calcified popliteal and infrapopliteal arteries. No significant amount of flow is identified distal LEFT lower extremity. Heavily calcified plaque in the RIGHT femoral artery into the popliteal artery and infrapopliteal arteries. Similar findings as compared to 02/25/2023. The extent of stenosis and occlusions are difficult to quantify due to the heavy calcification in the arteries. Extensive atherosclerosis in the abdominal aorta and mesenteric arteries and renal arteries 03/16: Left Foot XR: Reviewed and results as follows: No evidence of osteomyelitis. 03/16: Duplex scan lower extremity artery: Reviewed and results as follows: Probable high-grade stenosis of the proximal SFA. Monophasic waveforms throughout. Minimal if any flow in the posterior tibial. Micro: Microbiology 03/16/25 10:18 Blood Culture - Preliminary Blood SPECIMEN COLLECTED 03/16/25 10:18 Blood Culture - Preliminary Blood SPECIMEN COLLECTED A&P Assessment and plan 1. Peripheral arterial disease: - See plan below 2. Dry gangrene: - 03/16: Aorta with runoff CTA: New, complete occlusion LEFT lower extremity beginning in the proximal femoral artery. The deep profundus remains intact. There is extensive circumferential calcified plaque throughout the LEFT lower extremity arteries. There may be some component of reconstitution but of little significance. Heavily calcified popliteal and infrapopliteal arteries. No significant amount of flow is identified distal LEFT lower extremity. Heavily calcified plaque in the RIGHT femoral artery into the popliteal artery and infrapopliteal arteries. Similar findings as compared to 02/25/2023. The extent of stenosis and occlusions are difficult to quantify due to the heavy calcification in the arteries. Extensive atherosclerosis in the abdominal aorta and mesenteric arteries and renal arteries. - 03/16: Left Foot XR: No evidence of osteomyelitis. - 03/16: Duplex scan lower extremity artery: Probable high-grade stenosis of the proximal SFA. Monophasic waveforms throughout. Minimal if any flow in the posterior tibial. - Blood cultures ordered, pending. - Podiatry consulted-Dr. Padilla. Expertise and recommendations appreciated. - Cardiology consulted- Kyleigh Lucas NP. Expertise and recommendations appreciated. - Admissions Consultant scheduled for 03/[address] Bhatt for stent placement. - Continue Heparin Drip, titrate per protocol - Check A1c. If elevated will start SSI, to help promote wound healing. - NPO at midnight - Fall precautions - Continue IV antibiotics: Vancomycin IV, Zosyn 3.375 mg IV q8hr - Will order PT/OT once patient is postop 3. Hyperlipemia: - Lipid panel ordered, pending. - Continue home medication atorvastatin 40 mg PO dly 4. BPH (benign prostatic hyperplasia): - Continue home medication tamsulosin 0.4 mg PO dly PDMP PDMP Reviewed: Not Reviewed Attestations 2 Medical Necessity Statement*: Admitted under inpatient status. Given complexity of patient's presentation, PAD with stent placement, gangrene with possible amputation, co-morbid conditions, and required intensity of treatment, a hospitalization exceeding two midnights is anticipated. and High Time for a total of 78 minutes, includes reviewing past or interval history, examining/interviewing patient, placing orders, counseling patient/family/other support, updating patient/family/other support, discussing plan of care with staff, communicating with other healthcare providers, documenting encounter and coordinating care Diagnoses Peripheral arterial disease I73.9 Dry gangrene I96 Hyperlipemia E78.5 BPH (benign prostatic hyperplasia) N40.0
[2025-03-16] MEDS: heparin drip 25,000 UNIT/500 ML PREMIX 25.58 UNIT IV (11:33)
[2025-03-16 11:51] LABS: Lactic Acid level (Lactate) 1.6 mmol/L (0.5-2.2)
--- NOTE | 2025-03-16 15:18 | P.CONIM_ITS ---
<Statement entered by Marcelo Bhatt M.D - 03/22/25 11:08> Patient was cared for in conjunction with an advanced practice practitioner.? I reviewed the chart and all pertinent data including imaging, telemetry, and laboratory results.? I discussed the patient in detail with the advanced practice practitioner.? Please see? their documentation for consult note, testing results and agreed upon plan of care for the patient. Providers/Reason For Consult 2 Consulting Physician/Specialty*: Dr. Bhatt Reason for Consult*: Severe PAD Requesting Physician: Dr. Fragoso History of Present Illness History of Present Illness Barrett Leahy is a 69 year old male hx of gangrene LLE toes, former smoker, hyperlipidemia, hyperlipidemia, failure to thrive presented to the ED from a [facility] due to increased redness of the left lower extremity. Patient had CTA AFRO that showed new complete occlusion of the left lower extremity beginning at the proximal femoral. On exam, patient has rubor of the left foot, 3 second capillary refill, no dopplered pulses. Foot is not cold. Right femoral palpable. Patient is not in pain at this time. He states this has been present for a few weeks. Has dry gangrenous changes in the first and second toes. He has contractures of bilateral lower extremities causing him the inablity to straighten the LLE. At this time, he denies any foot pain. Review of Systems 2 Narrative: Consitutional: denies fever Card: Denies chest pain, palpitations, denies leg pain Resp: Denies shortness of breath, Musc: Reports inability to straighten bilateral lower extremities Skin: Reports chronic changes to the LLE Medications/Allergies Home Medications ?Medication ?Instructions ?Recorded ?Confirmed ?Last Taken ?Type albuterol sulfate 90 mcg/actuation 3 inh inhalation Q4 H PRN shortness 02/28/23 03/16/25 Unknown Rx breath activated powder inhaler of breath #1 ea clopidogrel 75 mg tablet 75 mg PO DAILY #30 tabs 09/1503/16/25 03/15/25 Rx atorvastatin 40 mg tablet 40 mg PO DAILY #30 tabs 02/2303/16/25 03/15/25 Rx acetaminophen 325 mg tablet 650 mg PO Q6H PRN fever/ge neral 03/16/25 03/16/25 02/16/25 History discomfort ketoconazole 2 % shampoo See Rx Instructions .Route . COMPLEX 03/16/25 03/16/25 Unknown History magnesium hydroxide 400 mg/5 mL 30 ml PO DAILY PRN Con stipation 03/16/25 03/16/25 03/12/25 History oral suspension (Milk of Magnesia) nystatin 100,000 unit/gram topical See Rx Instructions .Route .COMPLEX 03/16/25 03/16/25 03/15/25 History powder sodium phosphates 19 gram-7 118 ml [place] DAILY PRN Consti pation 03/16/25 03/16/25 Unknown History gram/118 mL enema (Fleet Enema) tamsulosin 0.4 mg capsule 0.4 mg PO BEDTIME 03/16/25 1 05/17/24 03/15/25 History Allergies Allergy/AdvReac Type Severity Reaction Status Date / Time No Known Allergies Allergy Verified 02/19/23 20:05 Current Medications Generic Name Dose Route Start Last Admin Trade Name Freq PRN Reason Stop Dose Admin Heparin Sodium/Sodium Chloride 25,000 unit in 500 mls @ 25.584 mls/hr 03/16/25 11:15 03/16/25 11:33 Heparin Drip IV 12 unit/kg/hr CONT GREG 25.58 mls/hr Protocol Administration 12 UNIT/KG/HR Vitals/I&O/Wt Last Vital Signs Temp 98.9 F 03/16/25 08:35 Pulse 89 03/16/25 14:30 Resp 17 03/16/25 13:30 BP 132/91 03/16/25 14:30 Pulse Ox 92 03/16/25 14:30 O2 Del Method Room Air 03/16/25 13:30 03/16/25 03/16/25 03/16/25 06:59 14:59 22:59 Intake Total 400 / 400 Balance 400 / 400 Weight last 48 hrs Weight 235 lb Weight 200 lb Physical Exam 2 Narrative: General: No apparent distress HENMT: normoceophalic Muskuloskeletal: Full ROM Respiratory: Normal respiratory effort, clear to auscultation bilaterally throughout all lung samano, no use of accessory muscles Cardio: No JVD, regular rate, regular rhythm, S1 S2 normal, no murmurs, peripheral pulses 2+ radial palpated bilaterally Extremities: LLE with no dopplered pedal pulses, 3 second capillary refill, 2+ right femoral Neuro: Alert and oriented x4 Psych: Affect normal Skin: dry gangrenous changes of the first and second toes of the left lower extremity Data 03/16/25 08:39 03/16/25 08:39 Micro: Microbiology 03/16/25 10:18 Blood Culture - Preliminary Blood SPECIMEN COLLECTED 03/16/25 10:18 Blood Culture - Preliminary Blood SPECIMEN COLLECTED A&P Assessment and plan 1. Peripheral arterial disease: 2. Dry gangrene: 3. Hyperlipidemia, unspecified hyperlipidemia type: 4. Former smoker: Plan: Patient with chronic changes of LLE with limb threatening ischemia and gangrenous changes of LLE. CTA showing occlusion of left SFA. Patient placed on Heparin drip. He will be admitted to inpatient. Plan is to take patient for angiogram tomorrow morning for possible HOSPICE PHYSICIAN and stenting of the LLE. Thank you, Dr. Fragoso, for allowing us to care for this very pleasant 69 year old gentleman. PDMP PDMP Reviewed: Not Reviewed Consult Attestations 2 Medical Necessity Statement: Deferred to primary. Coding Level of Care Code Acute Code for [facility] Diagnoses Peripheral arterial disease I73.9 Dry gangrene I96 Hyperlipidemia, unspecified hyperlipidemia type E78.5 Hyperlipidemia type: unspecified Former smoker Z87.891
[2025-03-16 17:34] LABS: Cholesterol 135 mg/dL (0-200); HDL Cholesterol 34 mg/dL (60-100); Triglycerides 73 mg/dL (0-150)
--- NOTE | 2025-03-16 17:44 | PC.NURSE ---
PT brief changed and PT repositioned in bed
[2025-03-16 17:48] LABS: Partial Thromboplastin Time 91.9 SECONDS (23.9-36.7)
[2025-03-16] MEDS: piperacillin-tazobactam 3.375 GM in sodium chloride 0.9% (plus) 50 ML IV (18:04)
[2025-03-16] MEDS: pantoprazole 40 mg SDV IVP (18:05)
--- NOTE | 2025-03-16 18:11 | PHA.VACGOAL ---
Vancomycin Goal - Goal Vancomycin Indication:: SSTI - Therapy Current therapy:: Pip/Tazo Day of therpy:: Day []of [] . Actual body weight (kg): 235 lb - Data Labs: WBC 7.64 10^3/uL (3.29-11.43) 03/16/25 08:39 RBC 4.59 10^6/uL (3.85-5.65) 03/16/25 08:39 Hgb 13.60 g/dL (11.27-16.99) 03/16/25 08:39 Hct 43.1 % (37-53) 03/16/25 08:39 MCV 93.9 fl (82-101) 03/16/25 08:39 MCH 29.6 pg (27-33) 03/16/25 08:39 MCHC 31.6 g/dL (30-55) 03/16/25 08:39 RDW 13.8 % (12.1-15.1) 03/16/25 08:39 Sodium 140 mmol/L (136-145) 03/16/25 08:39 Potassium 4.3 mmol/L (3.5-5.1) 03/16/25 08:39 Chloride 103 mmol/L (98-107) 03/16/25 08:39 Carbon Dioxide 24 mmol/L (22-29) 03/16/25 08:39 Anion Gap 17.3 (5-19) 03/16/25 08:39 BUN 14 mg/dL (8-23) 03/16/25 08:39 Creatinine 0.7 mg/dL (0.7-1.2) 03/16/25 08:39 GFR Calculation 112.5 mL/min (90-130) 03/16/25 08:39 Last dialysis session:: N/A Treatment plan:: new consult Regimen:: Medications Piperacillin Sod/Tazobactam (Sod 3.375 gm/ Sodium Chloride) 50 mls @ 12.5 mls/hr IV Q8H [facility]; Protocol Last Admin: 03/16/25 18:04 Dose: 12.5 mls/hr Discontinued Medications Vancomycin HCl (Vancocin) 2,000 mg in 400 mls @ 200 mls/hr IV ONCE ONE; Protocol Stop: 03/16/25 11:51 Last Admin: 03/16/25 11:28 Dose: Infused 2000 MG LOADING DOSE GIVEN IN ER AT 1151, STARTED MAINTENANCE DOSE OF 1250 MG Q8H PER PROTOCOL BASED ON WEIGHT AND RENAL FUNCTION, SCHEDULED FIRST MAINTENANCE DOSE TO BEGIN AT 1930 ON 03/16/25. WILL CONTINUE TO MONITOR DAILY AND PLAN TO OBTAIN TROUGH PRIOR TO 4TH DOSE.
[2025-03-16 18:25] LABS: Estmated Average Glucose 131; Hemoglobin A1C 6.2 % (4.0-6.0)
[2025-03-17] VITALS (57 sets, daily range): BP systolic 134–178; BP diastolic 64–125; PULSE 61–101; RESP 11–24; TEMP 36.5–36.9; O2SAT 91–99
[2025-03-17] MEDS: piperacillin-tazobactam 3.375 GM in sodium chloride 0.9% (plus) 50 ML IV ×3 (02:39→19:23)
[2025-03-17 04:22] LABS: Hematocrit 42.3 % (37-53); Hemoglobin 13.00 g/dL (11.27-16.99); Mean Corpuscular HGB Conc 30.7 g/dL (30-55); Mean Corpuscular Hemoglobin 30.2 pg (27-33); Mean Corpuscular Volume 98.4 fl (82-101); Nucleated Red Blood Cells % 0 %; Platelet Count 272 10^3/cmm (157-399); Red Blood Count 4.30 10^6/uL (3.85-5.65); White Blood Count 8.06 10^3/uL (3.29-11.43)
[2025-03-17 04:51] LABS: Partial Thromboplastin Time 76.9 SECONDS (23.9-36.7)
[2025-03-17 05:02] LABS: Alanine Aminotransferase 13 U/L (0-41); Albumin Level 3.3 g/dL (3.5-5.2); Alkaline Phosphatase 91 U/L (40-130); Anion Gap 16.0 (5-19); Aspartate Amino Transferase 16 U/L (0-40); Blood Urea Nitrogen 14 mg/dL (8-23); Calcium 8.6 mg/dL (8.5-10.5); Carbon Dioxide 23 mmol/L (22-29); Chloride 105 mmol/L (98-107); Globulin 3.5 g/dL (1.3-4.6); Glucose 92 mg/dL (65-115); Magnesium 2.0 mg/dL (1.7-2.3); Osmolality Calculated 290 mOsm/kg (285-295); Potassium 4.0 mmol/L (3.5-5.1); Sodium 140 mmol/L (136-145); Total Protein 6.8 g/dL (6.6-8.7)
--- NOTE | 2025-03-17 07:00 | P.ANESASSM_ITS ---
Pre-Anesthetic Assessment Height/Weight: Height 6 ft 3 in Weight 198 lb 6.656 oz Temp Pulse Resp BP Pulse Ox O2 Del Method O2 Flow Rate 98.3 F 90 18 163/82 91 Room Air 1 03/17/25 20:00 03/17/25 20:00 03/17/25 20:00 03/17/25 20:00 03/17/25 20:00 03/17/25 20:00 03/17/25 11:05 Preop Diagnosis: Severe peripheral artery disease/ Foot wounds/ Critical limb ischemia Operation Date: 03/17/25 10:35 Proposed Procedures p Cardiac Catheterization(Not Applicable) - Marcelo Bhatt M.D Social No alcohol and No tobacco quit smoking and drinking 1 year ago Exam alert, oriented x 3, clear to auscultation bilaterally and regular rate & rhythm Airway Submandibular: within normal limits Cervical ROM: within normal limits Mallampati: Class III Comments: Comments: questionable dentition, denies any loose teeth Anesthetic Plan ASA status: 3 Anesthesia: MAC Other: No prior issues with anesthesia, Cardiology requesting our help for cath procedure as patient has left leg contracture NPO since yesterday Patient comes from a nursing facility. Denies HTN quit smoking and drinking 1 year ago EKG shoing sinus tachycardia with few PVCs Echo in january showing EF 65% Plan for Mac anesthesia Medications/Allergies Home Medications ?Medication ?Instructions ?Recorded ?Confirmed ?Last Taken ?Type albuterol sulfate 90 mcg/actuation 3 inh inhalation Q4 H PRN shortness 02/28/23 03/16/25 Unknown Rx breath activated powder inhaler of breath #1 ea clopidogrel 75 mg tablet 75 mg PO DAILY #30 tabs 09/1503/16/25 03/15/25 Rx atorvastatin 40 mg tablet 40 mg PO DAILY #30 tabs 02/2303/16/25 03/15/25 Rx acetaminophen 325 mg tablet 650 mg PO Q6H PRN fever/ge neral 03/16/25 03/16/25 02/16/25 History discomfort ketoconazole 2 % shampoo See Rx Instructions .Route . COMPLEX 03/16/25 03/16/25 Unknown History magnesium hydroxide 400 mg/5 mL 30 ml PO DAILY PRN Con stipation 03/16/25 03/16/25 03/12/25 History oral suspension (Milk of Magnesia) nystatin 100,000 unit/gram topical See Rx Instructions .Route .COMPLEX 03/16/25 03/16/25 03/15/25 History powder sodium phosphates 19 gram-7 118 ml UT DAILY PRN Consti pation 03/16/25 03/16/25 Unknown History gram/118 mL enema (Fleet Enema) tamsulosin 0.4 mg capsule 0.4 mg PO BEDTIME 03/16/25 1 05/17/24 03/15/25 History Allergies Allergy/AdvReac Type Severity Reaction Status Date / Time No Known Allergies Allergy Verified 02/19/23 20:05 Current Medications Generic Name Dose Route Start Last Admin Trade Name Freq PRN Reason Stop Dose Admin Albuterol/Ipratropium 3 ml 03/16/25 20:00 03/17/25 21:06 Ipratropium-Albuterol 3 Ml Neb INHALATION 3 ml QID.RESPIRATORY GREG Administration Atorvastatin Calcium 40 mg 03/17/25 05:00 03/17/25 04:54 Atorvastatin 40 Mg Tablet PO 40 mg DAILY GREG Administration Clopidogrel Bisulfate 75 mg 03/17/25 05:00 03/17/25 04:54 Clopidogrel 75 Mg Tablet PO 75 mg On Hold: 03/17/25 20:30 DAILY GREG Administration Heparin Sodium/Sodium Chloride 25,000 unit in 500 mls @ 21.6 mls/hr 03/16/25 11:15 03/17/25 15:13 Heparin Drip IV Infused CONT GREG Titration Protocol 12 UNIT/KG/HR Sodium Chloride 1,000 mls @ 50 mls/hr 03/17/25 08:00 03/17/25 09:39 Sodium Chloride 0.9% IV 03/18/25 03:59 Not Given .Q20H ONE Dextrose/Lactated Ringer's 1,000 mls @ 75 mls/hr 03/17/25 20:45 03/17/25 21:48 Dextrose 5%-Lactated Ringers IV 75 mls/hr .[id number] GREG Administration Nystatin 1 applic 03/17/25 06:30 03/17/25 17:09 Nystatin Powder 30 Gm Btl TOPICAL 1 applic BID GREG Administration Pantoprazole Sodium 40 mg 03/16/25 17:30 03/17/25 17:10 Pantoprazole 40 Mg Sdv IVP 40 mg Q24H GREG Administration Tamsulosin HCl 0.4 mg 03/16/25 21:00 03/17/25 21:50 Tamsulosin 0.4 Mg Capsule PO 0.4 mg BEDTIME GREG Administration Data Anesthesia 03/17/25 03:11 03/17/25 03:11 Short CBC 03/16/25 03/17/25 Range/Units 08:39 03:11 WBC 7.64 8.06 (3.29-11.43) 10^3/uL Hgb 13.60 13.00 (11.27-16.99) g/dL Hct 43.1 42.3 (37-53) % MCV 93.9 98.4 (82-101) fl Plt Count 291 272 (157-399) 10^3/cmm Neut % (Auto) 63.4 63.4 % Neut # (Auto) 4.85 5.11 (1.8-7.7) 10^3/uL BMP 03/16/25 03/17/25 08:39 03:11 Sodium 140 140 Potassium 4.3 4.0 Chloride 103 105 Carbon Dioxide 24 23 BUN 14 14 Creatinine 0.7 0.7 Glucose 144 H 92 Calcium 8.9 8.6 Liver Function 03/16/25 03/17/25 Range/Units 08:39 03:11 Total Bilirubin 0.4 0.5 (0.15-1.2) mg/dL AST 19 16 (0-40) U/L ALT 14 13 (0-41) U/L Alkaline Phosphatase 94 91 (40-130) U/L Albumin 3.6 3.3 L (3.5-5.2) g/dL Coags 03/16/25 03/16/25 03/17/25 08:39 17:23 03:11 ESR 63 H APTT 91.9 H 76.9 H C-Reactive Protein 32.6 H 03/17/25 03/17/25 10:49 12:57 ESR APTT 96.0 H 37.2 H D C-Reactive Protein Microbiology 03/16/25 10:18 Blood Culture - Preliminary Blood NEGATIVE TO DATE 03/16/25 10:18 Blood Culture - Preliminary Blood NEGATIVE TO DATE Cardiac Studies: 2 Echocardiogram 02/21/23
--- NOTE | 2025-03-17 07:10 | W.PM.OPSUD ---
Surgery/Procedure H&P Update DATE OF PROCEDURE: March 17, 2025 DATE H&P PERFORMED: 03/16/25 H&P UPDATE INFORMATION: I have reviewed H&P completed within last 30 days, I have examined patient prior to procedure and No changes to prior documentation PREOP DIAGNOSIS: Severe peripheral artery disease/ Foot wounds/ Critical limb ischemia PRIMARY INDICATION FOR PROCEDURE: Severe peripheral artery disease/ Foot wounds/ Critical limb ischemia PLANNED PROCEDURE: Operation Date: 03/17/25 10:35 Proposed Procedures p Peripheral angiogram with possible intervention - Marcelo Bhatt M.D Anesthesia team available for procedure
--- NOTE | 2025-03-17 08:16 | PM.PROC ---
Procedure Note: Date of procedure: 03/17/25 Pre-procedure diagnosis: Critical limb ischemia Post-procedure diagnosis: other (Total occlusion of calcified SFA post intervention with 1 stent) Procedure: Left common iliac artery is patent. Left external iliac artery is patent. Left common femoral artery is patent. Left ostial SFA is 100% occluded. It is a heavily calcified vessel. Reconstitutes in the mid vessel. Has serial severe stenoses. Profunda patent. Popliteal artery has moderate disease. Below the knee all vessels are occluded with only collateral blood flow to the foot. Successful revascularization of ostial SFA. Entire SFA was ballooned with 6.0 x 250 mm balloon. This was followed by placement of 6.0 x 59 mm Omnilink stent and ostial SFA. Brisk flow to distal popliteal artery established. Below that all vessels are occluded with only collateral blood flow. No revascularization targets. In terms of vascular supply, patient should have good healing of below the knee amputation if needed however at level of foot blood flow is compromised. Dual antiplatelet therapy with aspirin and plavix Performing Provider: Marcelo Bhatt Estimated blood loss (mL): 10 Complications: None Condition: stable Disposition: floor Coding Level of Care Code Acute Code for [facility] Fwd
--- NOTE | 2025-03-17 09:18 | PC.NURSE ---
patient arrived back from laborer [employer] at 0840. Bedside assessment done by Deepika Freedman and Ewa. No hematoma noted. Sitter sitting with patient to make sure patient does not move right leg.
[2025-03-17 11:25] LABS: Partial Thromboplastin Time 96.0 SECONDS (23.9-36.7)
--- NOTE | 2025-03-17 12:43 | P.PN_ITS ---
Subjective 2 Subjective: Patient seen bedside this p.m. to discuss further surgical planning on left lower extremity. Vitals/I&O/Wt Last Vital Signs Temp 97.7 F 03/17/25 08:00 Pulse 76 03/17/25 11:05 Resp 16 03/17/25 11:05 BP 156/68 03/17/25 08:32 Pulse Ox 96 03/17/25 11:05 O2 Del Method Nasal Cannula 03/17/25 11:02 O2 Flow Rate 1 03/17/25 11:05 03/16/25 03/17/25 03/17/25 22:59 06:59 14:59 Intake Total 50 / 450 943.387 / 1393.387 50 / 50 Output Total 300 / 300 Balance 50 / 450 643.387 / 1093.387 50 / 50 Weight last 48 hrs Weight 198 lb 6.656 oz Weight 235 lb Weight 200 lb Physical Exam 2 Narrative: VASCULAR: Dorsalis pedis poor pulses, posterior tibial arteries poor pulses. Capillary refill time less than 2 seconds to the distal hallux bilaterally. Calf is supple and nontender proximally and distally. Left foot has gangrenous changes with dry gangrene involving the first toe or great toe and second toe. NEUROLOGICAL: Protective sensation intact at multiple sites, tested with [place] monofilament to bilateral feet. No great pulse on the left foot. DERMATOLOGICAL: Ischemic foot with rubor and dry gangrenous changes on the left forefootBlack eschar to left great toe second toe and third toe. No purulent drainage. MUSCULOSKELETAL: Patient uses a wheelchair and cannot put weight on the left side. The knee is locked up and does not straighten out. Can put weight on the right side. Data 03/17/25 03:11 03/17/25 03:11 Micro: Microbiology 03/16/25 10:18 Blood Culture - Preliminary Blood NEGATIVE TO DATE 03/16/25 10:18 Blood Culture - Preliminary Blood NEGATIVE TO DATE A&P Assessment and plan 1. Dry gangrene: 2. Peripheral arterial disease: Plan: X-ray left foot 3 views negative for osteomyelitis negative for soft tissue emphysema, there is M?nckeberg's arteriosclerosis of dorsalis pedis and posterior tibial arteries. This is a 69-year-old male with a history of tobacco use and peripheral vascular disease presenting with dry gangrene of the left foot. He has dry, stable gangrene affecting the first and second toes, secondary to severe peripheral artery disease as evidenced by poor pedal pulses and ischemic rubor. The condition is not considered an acute emergency requiring immediate surgery as the gangrene is not wet and is not causing systemic illness. The primary concern is the compromised arterial inflow to the foot, which makes the healing potential of a distal amputation highly questionable. While an amputation behind the toes is the minimum level of surgical intervention required, its success is dependent on first improving blood flow. Failure to restore adequate perfusion may necessitate a higher-level amputation. The patient's comorbid left knee contracture and wheelchair dependency are also noted, impacting his overall functional status. 1. Dry Gangrene / Peripheral Artery Disease Of Left Foot The immediate plan is to improve blood flow to the left foot prior to any surgical intervention. A consultation will be made with a wood boatbuilder apprentice to assess the feasibility of revascularization, possibly through stenting. Surgical amputation is deferred until after the vascular assessment. If blood flow can be restored, the goal will be a partial foot amputation to preserve as much function as possible, allowing for standing, walking, and shoe use. The patient was counseled that a higher-level amputation may be necessary if revascularization is not successful. - You have a condition called dry gangrene on your first two toes. This means the tissue has because of poor blood flow. It is stable and does not require emergency surgery right now. - The first and most important step is to try and improve the blood flow to your extremity. - After we know if your blood flow can be improved, we will discuss the next steps, which will involve surgery which would entail likely transmetatarsal amputation. - Our goal is to save as much of your foot as we can so that you can still stand, walk, and wear a shoe. Ultimately there is a risk that higher level amputation such as below-knee amputation may be needed. Interim update 03/17/2025 -Revascularization left lower extremity performed today 03/17/2025 -Per cardiology report after extensive revascularization efforts improved flow down to the knee,blood flow to the level of the foot remains compromised. Patient's condition warrants consideration for a more proximal level of amputation, specifically a below-knee or above-knee amputation. 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 Patient demonstrated comprehension of the situation and the need for further surgical intervention. Patient expressed agreement to proceed with the higher level of amputation as recommended. Patient understands the need for another surgical consultation with the appropriate expertise for further evaluation and has agreed to the referral process. PDMP PDMP Reviewed: Not Reviewed Attestations 2 Medical Necessity Statement*: Deferred to primary Coding [facility] Diagn[facility] Dry gangrene I96 Peripheral arterial disease I73.9
[2025-03-17 13:21] LABS: Partial Thromboplastin Time 37.2 SECONDS (23.9-36.7)
--- NOTE | 2025-03-17 15:03 | PC.NURSE ---
Sheath pulled at 1432 with no hematoma noted. Patient instructed on keeping leg straight to avoid bleeding. Sitter at bedside to help patient remember to keep leg straight
--- NOTE | 2025-03-17 15:14 | PC.NURSE ---
heparin stopped per protocol post laborer [employer].
[2025-03-17] MEDS: nystatin powder 30 gm Btl 1 APPLIC TOPICAL (17:09)
[2025-03-17] MEDS: pantoprazole 40 mg SDV IVP (17:10)
--- NOTE | 2025-03-17 18:59 | PM.PN ---
Vitals/I&O/Wt Last Vital Signs Temp 97.7 F 03/17/25 08:00 Pulse 89 03/17/25 17:30 Resp 22 H 03/17/25 17:30 BP 159/80 03/17/25 17:30 Pulse Ox 97 03/17/25 16:00 O2 Del Method Room Air 03/17/25 16:00 O2 Flow Rate 1 03/17/25 11:05 03/17/25 03/17/25 03/17/25 06:59 14:59 22:59 Intake Total 943.387 / 1393.387 410 / 410 106.613 / 516.613 Output Total 300 / 300 310 / 310 Balance 643.387 / 1093.387 410 / 410 -203.387 / 206.613 Weight last 48 hrs Weight 90 kg Weight 106.594 kg Weight 90.718 kg Data 03/17/25 03:11 03/17/25 03:11 Micro: Microbiology 03/16/25 10:18 Blood Culture - Preliminary Blood NEGATIVE TO DATE 03/16/25 10:18 Blood Culture - Preliminary Blood NEGATIVE TO DATE A&P PDMP PDMP Reviewed: Not Reviewed Coding Level of Care Code Acute Code for [facility] Fwd
--- NOTE | 2025-03-17 19:43 | P.CONIM_ITS ---
Providers/Reason For Consult 2 Consulting Physician/Specialty*: Hospitalist Reason for Consult*: Ischemic infected leg on the left Attending Physician: Espinoza Krishnamurthy MD History of Present Illness History of Present Illness Barrett Leahy is a 69 year old male with ischemic leg had a stent placed in his left superficial artery on the left. At this point blood flow goes down to about the knee at this point plan is to do a [id number] amputation. Discussed with podiatry discussed with cardiology both agree that a [id number] amputation would be indicated at this time. Review of Systems 2 General: Reports: 10 or more systems reviewed and unremarkable except in HPI and below Narrative: - Constitutional: Denies feeling systemi jhony ill. - Musculoskeletal: Reports the left knee is locked up and will not straighten. Reports inability to bear weight on the left leg. Denies left knee pain. - Neurological: Reports pain in the left foot. Const: Denies: fever(s) or chills Eyes: Denies: change in vision Card: Denies: chest pain or palpitations Resp: Denies: dyspnea or productive cough GI: Denies: abdominal pain, nausea or vomiting : Denies: flank pain Musc: Reports: extremity swelling, joint stiffness and deformity Skin/Breast: Reports: erythema, sores, changes in skin color, dry skin, nail changes and change in hair Neuro: Reports: numbness in extremities, sensory changes and difficulty walking Psych: Denies: suicidal ideation Endo: Denies: change in body appearance Braydon/Lymph: Denies: tender lymph nodes Medications/Allergies Home Medications ?Medication ?Instructions ?Recorded ?Confirmed ?Last Taken ?Type albuterol sulfate 90 mcg/actuation 3 inh inhalation Q4 H PRN shortness 02/28/23 03/16/25 Unknown Rx breath activated powder inhaler of breath #1 ea clopidogrel 75 mg tablet 75 mg PO DAILY #30 tabs 09/1503/16/25 03/15/25 Rx atorvastatin 40 mg tablet 40 mg PO DAILY #30 tabs 02/2303/16/25 03/15/25 Rx acetaminophen 325 mg tablet 650 mg PO Q6H PRN fever/ge neral 03/16/25 03/16/25 02/16/25 History discomfort ketoconazole 2 % shampoo See Rx Instructions .Route . COMPLEX 03/16/25 03/16/25 Unknown History magnesium hydroxide 400 mg/5 mL 30 ml PO DAILY PRN Con stipation 03/16/25 03/16/25 03/12/25 History oral suspension (Milk of Magnesia) nystatin 100,000 unit/gram topical See Rx Instructions .Route .COMPLEX 03/16/25 03/16/25 03/15/25 History powder sodium phosphates 19 gram-7 118 ml OR DAILY PRN Consti pation 03/16/25 03/16/25 Unknown History gram/118 mL enema (Fleet Enema) tamsulosin 0.4 mg capsule 0.4 mg PO BEDTIME 03/16/25 1 05/17/24 03/15/25 History Allergies Allergy/AdvReac Type Severity Reaction Status Date / Time No Known Allergies Allergy Verified 02/19/23 20:05 Current Medications Generic Name Dose Route Start Last Admin Trade Name Freq PRN Reason Stop Dose Admin Albuterol/Ipratropium 3 ml 03/16/25 20:00 03/17/25 16:02 Ipratropium-Albuterol 3 Ml Neb INHALATION 3 ml QID.RESPIRATORY GREG Administration Atorvastatin Calcium 40 mg 03/17/25 05:00 03/17/25 04:54 Atorvastatin 40 Mg Tablet PO 40 mg DAILY GREG Administration Clopidogrel Bisulfate 75 mg 03/17/25 05:00 03/17/25 04:54 Clopidogrel 75 Mg Tablet PO 75 mg DAILY GREG Administration Heparin Sodium/Sodium Chloride 25,000 unit in 500 mls @ 21.6 mls/hr 03/16/25 11:15 03/17/25 15:13 Heparin Drip IV Infused CONT GREG Titration Protocol 12 UNIT/KG/HR Sodium Chloride 1,000 mls @ 50 mls/hr 03/17/25 08:00 03/17/25 09:39 Sodium Chloride 0.9% IV 03/18/25 03:59 Not Given .Q20H ONE Piperacillin Sod/Tazobactam 50 mls @ 12.5 mls/hr 03/16/25 17:45 03/17/25 19:23 Sod 3.375 gm/ Sodium Chloride IV 12.5 mls/hr Q8H GREG Administration Protocol Nystatin 1 applic 03/17/25 06:30 03/17/25 17:09 Nystatin Powder 30 Gm Btl TOPICAL 1 applic BID GREG Administration Pantoprazole Sodium 40 mg 03/16/25 17:30 03/17/25 17:10 Pantoprazole 40 Mg Sdv IVP 40 mg Q24H GREG Administration Tamsulosin HCl 0.4 mg 03/16/25 21:00 03/16/25 22:23 Tamsulosin 0.4 Mg Capsule PO 0.4 mg BEDTIME GREG Administration Vitals/I&O/Wt Last Vital Signs Temp 97.7 F 03/17/25 08:00 Pulse 89 03/17/25 17:30 Resp 22 H 03/17/25 17:30 BP 159/80 03/17/25 17:30 Pulse Ox 97 03/17/25 16:00 O2 Del Method Room Air 03/17/25 16:00 O2 Flow Rate 1 03/17/25 11:05 03/17/25 03/17/25 03/17/25 06:59 14:59 22:59 Intake Total 943.387 / 1393.387 410 / 410 106.613 / 516.613 Output Total 300 / 300 310 / 310 Balance 643.387 / 1093.387 410 / 410 -203.387 / 206.613 Weight last 48 hrs Weight 198 lb 6.656 oz Weight 235 lb Weight 200 lb Physical Exam 2 Narrative: Gangrenous toes dry gangrene. Patient is alert and oriented x 3 Left foot looks infected. Arteriogram stops just at the knee. Flow was significantly occluded below this. Data 03/17/25 03:11 03/17/25 03:11 Micro: Microbiology 03/16/25 10:18 Blood Culture - Preliminary Blood NEGATIVE TO DATE 03/16/25 10:18 Blood Culture - Preliminary Blood NEGATIVE TO DATE A&P Assessment and plan 1. Gangrene: Plan to do a left [id number] amputation tomorrow at 7 AM discussed with patient agrees to proceed. PDMP PDMP Reviewed: Not Reviewed Coding Level of Care Code Acute Code for [facility] Fwd Diagnoses Gangrene I96
--- NOTE | 2025-03-17 20:23 | P.PN_ITS ---
Subjective 2 Subjective: 69-year-old male with severe peripheral artery disease, presented to ER with complaints of worsening redness and swelling, pain in the left foot. ? Patient status post revascularization per cardiology. Successful revascularization of ostial SFA. Low back revascularization below the knee, reviewed by podiatry. Surgery on the foot would be futile, not salvageable. Discussed with orthopedic surgery, podiatry, cardiology. Discussed with patient, he agrees with the plan to proceed with left foot amputation. Vitals/I&O/Wt Last Vital Signs Temp 97.7 F 03/17/25 08:00 Pulse 89 03/17/25 17:30 Resp 22 H 03/17/25 17:30 BP 159/80 03/17/25 17:30 Pulse Ox 97 03/17/25 16:00 O2 Del Method Room Air 03/17/25 16:00 O2 Flow Rate 1 03/17/25 11:05 03/17/25 03/17/25 03/17/25 06:59 14:59 22:59 Intake Total 943.387 / 1393.387 410 / 410 106.613 / 516.613 Output Total 300 / 300 310 / 310 Balance 643.387 / 1093.387 410 / 410 -203.387 / 206.613 Weight last 48 hrs Weight 90 kg Weight 106.594 kg Weight 90.718 kg Physical Exam 2 Narrative: General: A&Ox4, even tempered and composed. No apparent distress. HEENT: Normo-cephalic, atraumatic, grossly unremarkable exam Cardio: NSR, normal S1-S2 w/o any murmurs, rubs, or gallops and JVD normal Respiratory: Clear to bilateral upper lobes and crackles to bilateral lower lobes on auscultation GI: Abd soft, non-tender, non-distended, normo-active bowel sounds present Neuro: No sensory deficits, Normal speech Behavior: Appropriate and cooperative Extremities: Patient uses a wheelchair and cannot put weight on the left side. The knee is locked up and does not straighten out. Can put weight on the right side. Ischemic foot with rubor and dry gangrenous changes on the left forefoot. Black eschar to left great toe second toe and third toe. No purulent drainage. Pulses are noted to be diminished. Data 03/17/25 03:11 03/17/25 03:11 Micro: Microbiology 03/16/25 10:18 Blood Culture - Preliminary Blood NEGATIVE TO DATE 03/16/25 10:18 Blood Culture - Preliminary Blood NEGATIVE TO DATE A&P Assessment and plan 1. Peripheral arterial disease: Plan: Severe peripheral artery disease with dry gangrene, arterial insufficiency with necrosis of the left lower extremity/toes BPH Patient is stable, no leukocytosis, no signs of infection. Very mild reperfusion seen of the left lower extremity, discussed with podiatry, lower extremity not salvageable even with revascularization. ? Prepare for surgery, will discontinue vancomycin ? Discontinue Zosyn ? Continue heparin GTT, discontinue prior to surgery ? Will hold antiplatelet for a.m. ? No required medications for patient to take, can remain n.p.o. With lower extremity procedure, patient is at low risk for perioperative complications, no diabetes, no heart failure. Will plan for postoperative PT/OT, will discuss with case management for placement following surgery, appreciate postoperative recommendations. Will investigate if patient would be a candidate for inpatient rehab PDMP PDMP Reviewed: Not Reviewed Attestations 2 Medical Necessity Statement*: Admitted under inpatient status. Given complexity of patient's presentation, PAD with stent placement, gangrene with possible amputation, co-morbid conditions, and required intensity of treatment, a hospitalization exceeding two midnights is anticipated. Diagnoses Peripheral arterial disease I73.9
[2025-03-18] VITALS (17 sets, daily range): BP systolic 114–171; BP diastolic 64–85; PULSE 79–116; RESP 13–24; TEMP 36.4–37.8; O2SAT 91–97
[2025-03-18 02:24] LABS: Hematocrit 38.5 % (37-53); Hemoglobin 12.10 g/dL (11.27-16.99); Mean Corpuscular HGB Conc 31.4 g/dL (30-55); Mean Corpuscular Hemoglobin 29.6 pg (27-33); Mean Corpuscular Volume 94.1 fl (82-101); Nucleated Red Blood Cells % 0 %; Platelet Count 282 10^3/cmm (157-399); Red Blood Count 4.09 10^6/uL (3.85-5.65); White Blood Count 7.39 10^3/uL (3.29-11.43)
[2025-03-18 02:47] LABS: Alanine Aminotransferase 12 U/L (0-41); Albumin Level 3.4 g/dL (3.5-5.2); Alkaline Phosphatase 82 U/L (40-130); Anion Gap 14.0 (5-19); Aspartate Amino Transferase 13 U/L (0-40); Blood Urea Nitrogen 14 mg/dL (8-23); Calcium 8.6 mg/dL (8.5-10.5); Carbon Dioxide 25 mmol/L (22-29); Chloride 105 mmol/L (98-107); Globulin 3.3 g/dL (1.3-4.6); Glucose 130 mg/dL (65-115); Magnesium 2.0 mg/dL (1.7-2.3); Osmolality Calculated 292 mOsm/kg (285-295); Potassium 4.0 mmol/L (3.5-5.1); Sodium 140 mmol/L (136-145); Total Protein 6.7 g/dL (6.6-8.7)
[2025-03-18] MEDS: ceFAZolin 2,000 mg SDV 2000 MG IVP (07:20)
--- NOTE | 2025-03-18 07:27 | P.PN_ITS ---
Subjective 2 Subjective: no events o/n plan for surgery today, has been n.p.o. overnight Vitals/I&O/Wt Last Vital Signs Temp 98.0 F 03/19/25 04:00 Pulse 99 03/19/25 06:00 Resp 18 03/19/25 04:00 BP 136/62 03/19/25 04:00 Pulse Ox 97 03/19/25 04:00 O2 Del Method Room Air 03/19/25 04:00 O2 Flow Rate 3 03/18/25 10:59 03/18/25 03/19/25 03/19/25 22:59 06:59 14:59 Intake Total 360 / 2400 1120 / 3520 Output Total 400 / 1200 300 / 1500 Balance -40 / 1200 820 / 2020 Weight last 48 hrs Weight 92.351 kg Weight 98.7 kg Physical Exam 2 Narrative: General: No apparent distress HENMT: normoceophalic Muskuloskeletal: Full ROM Respiratory: Normal respiratory effort, clear to auscultation bilaterally throughout all lung samano, no use of accessory muscles Cardio: No JVD, regular rate, regular rhythm, S1 S2 normal, no murmurs, peripheral pulses 2+ radial palpated bilaterally Neuro: Alert and oriented x4 Psych: Affect normal Skin: Left fem site clean, dry, intact w/o hematoma present Urinary Catheter Management: Cruz: Cath Placed During This Visit: yes Reason for Continuing Indwelling Catheter: Assist healing open wound Urinary Catheter Date of Insertion: 03/18/25 Urinary Catheter Time of Insertion: 06:30 Data 03/19/25 02:52 03/19/25 02:52 A&P Assessment and plan 1. Peripheral arterial disease: Plan: Severe peripheral artery disease with dry gangrene, arterial insufficiency with necrosis of the left lower extremity/toes BPH Patient is stable, no leukocytosis, no signs of infection. Very mild reperfusion seen of the left lower extremity, discussed with podiatry, lower extremity not salvageable even with revascularization. ? Prepare for surgery, will discontinue vancomycin ? Discontinue Zosyn ? Continue heparin GTT, discontinue prior to surgery ? Will hold antiplatelet for a.m. ? No required medications for patient to take, can remain n.p.o. With lower extremity procedure, patient is at low risk for perioperative complications, no diabetes, no heart failure. Will plan for postoperative PT/OT, will discuss with case management for placement following surgery, appreciate postoperative recommendations. Will investigate if patient would be a candidate for inpatient rehab PDMP PDMP Reviewed: Not Reviewed Attestations 2 Medical Necessity Statement*: Admitted under inpatient status. Given complexity of patient's presentation, PAD with stent placement, gangrene with possible amputation, co-morbid conditions, and required intensity of treatment, a hospitalization exceeding two midnights is anticipated. Diagnoses Peripheral arterial disease I73.9
--- NOTE | 2025-03-18 07:37 | PC.NURSE ---
Patient in surgery at shift change.
--- NOTE | 2025-03-18 08:43 | PM.OP ---
Operative Report Date of procedure: March 18, 2025 Pre-op diagnosis: Infected gangrenous left leg Post-op diagnosis: same Procedure done: Left gjkxe-hmo-isuc amputation Surgeon: Damir Antonio DO Estimated blood loss (mL): 500 Procedure: Left oqbbf-ywp-kcap amputation Patient is brought to the operative suite after undergoing anesthesia patient was placed in the supine position. All areas of impingement were well-padded. Sterile tourniquet was applied. Patient was prepped and draped in normal sterile fashion. Tourniquet is . Skin incision made over the distal femur. The Bovie was used to cut through the quads anteriorly was coagulating on the way using the aqua mantis. Laterally the IT band and hamstring tendons were cut. Medially the semitendinosis was cut. As well as the gracilis. The femoral artery vein and sciatic nerve were all identified artery was tied off as well as the vein. The segment was tied off and cut. The saw was then used to cut through the bone. Wound was then irrigated anterior and posterior muscle layers were sewn to each other. Skin was undermined in order to facilitate closure. 2-0 Vicryl and nylon were used to close the wound. Sterile dressings were applied and patient was transferred to the PACU in stable condition.
--- NOTE | 2025-03-18 09:29 | PC.NURSE ---
0987 - accepted into room 112-2 with CHAVEZ Dsouza at side - no distress noted upon this nurse exiting care - Pt on 2LNC at 95% - pulse SR 85 - BP 120/76 - call light within reach
--- NOTE | 2025-03-18 09:31 | PC.NURSE ---
Patient returned from surgery to [facility] at 0930.
--- NOTE | 2025-03-18 12:40 | PC.SOCIAL ---
IMM Update pg 2 of IMM updated and reviewed w/ patient. Copy provided and copy dated, initialed and placed in chart.
--- NOTE | 2025-03-18 15:18 | P.PN_ITS ---
<Statement entered by Marcelo Bhatt M.D - 03/22/25 12:17> Patient was cared for in conjunction with an advanced practice practitioner.? I reviewed the chart and all pertinent data including imaging, telemetry, and laboratory results.? I discussed the patient in detail with the advanced practice practitioner.? Please see? their documentation for progress note, testing results and agreed upon plan of care for the patient. Subjective 2 Subjective: Saw patient today groin site looks good. Patient is status post left ybtsq-ups-maqh amputation. Status post stent to the ostial SFA. Vitals/I&O/Wt Last Vital Signs Temp 98.0 F 03/18/25 09:19 Pulse 111 H 03/18/25 12:00 Resp 18 03/18/25 12:00 BP 135/77 03/18/25 12:00 Pulse Ox 92 03/18/25 12:00 O2 Del Method Nasal Cannula 03/18/25 10:59 O2 Flow Rate 3 03/18/25 10:59 03/18/25 03/18/25 03/18/25 06:59 14:59 22:59 Intake Total 300 / 246.602 4113 / 1780 Output Total 800 / 800 Balance 300 / 506.613 980 / 980 Weight last 48 hrs Weight 217 lb 9.54 oz Weight 198 lb 6.656 oz Physical Exam 2 Narrative: General: No apparent distress HENMT: normoceophalic Muskuloskeletal: Full ROM Respiratory: Normal respiratory effort, clear to auscultation bilaterally throughout all lung samano, no use of accessory muscles Cardio: No JVD, regular rate, regular rhythm, S1 S2 normal, no murmurs, peripheral pulses 2+ radial palpated bilaterally Neuro: Alert and oriented x4 Psych: Affect normal Skin: Left fem site clean, dry, intact w/o hematoma present Data 03/18/25 02:08 03/18/25 02:08 Micro: Microbiology 03/16/25 10:18 Blood Culture - Preliminary Blood NEGATIVE TO DATE 03/16/25 10:18 Blood Culture - Preliminary Blood NEGATIVE TO DATE A&P Assessment and plan 1. Peripheral arterial disease: 2. Dry gangrene: 3. Hyperlipidemia, unspecified hyperlipidemia type: 4. Former smoker: Plan: S/P stenting to the left SFA. Groin site looks good. Continue aspirin and plavix. PDMP PDMP Reviewed: Not Reviewed Attestations 2 Medical Necessity Statement*: Deferred to primary Coding Level of Care Code Acute Code for Chg Fwd Diagnoses Peripheral arterial disease I73.9 Dry gangrene I96 Hyperlipidemia, unspecified hyperlipidemia type E78.5 Hyperlipidemia type: unspecified Former smoker Z87.891
[2025-03-18] MEDS: pantoprazole 40 mg SDV IVP (16:55)
[2025-03-18] MEDS: nystatin powder 30 gm Btl 1 APPLIC TOPICAL (16:57)
[2025-03-19] VITALS (13 sets, daily range): BP systolic 110–136; BP diastolic 59–70; PULSE 92–110; RESP 16–20; TEMP 36.4–36.8; O2SAT 92–97
[2025-03-19 03:05] LABS: Hematocrit 31.9 % (37-53); Hemoglobin 10.00 g/dL (11.27-16.99); Mean Corpuscular HGB Conc 31.3 g/dL (30-55); Mean Corpuscular Hemoglobin 30.0 pg (27-33); Mean Corpuscular Volume 95.8 fl (82-101); Nucleated Red Blood Cells % 0 %; Platelet Count 265 10^3/cmm (157-399); Red Blood Count 3.33 10^6/uL (3.85-5.65); White Blood Count 8.65 10^3/uL (3.29-11.43)
[2025-03-19 03:28] LABS: Alanine Aminotransferase 12 U/L (0-41); Albumin Level 3.3 g/dL (3.5-5.2); Alkaline Phosphatase 68 U/L (40-130); Anion Gap 11.0 (5-19); Aspartate Amino Transferase 21 U/L (0-40); Blood Urea Nitrogen 11 mg/dL (8-23); Calcium 8.1 mg/dL (8.5-10.5); Carbon Dioxide 26 mmol/L (22-29); Chloride 108 mmol/L (98-107); Globulin 3.1 g/dL (1.3-4.6); Glucose 149 mg/dL (65-115); Magnesium 1.9 mg/dL (1.7-2.3); Osmolality Calculated 294 mOsm/kg (285-295); Potassium 4.0 mmol/L (3.5-5.1); Sodium 141 mmol/L (136-145); Total Protein 6.4 g/dL (6.6-8.7)
[2025-03-19] MEDS: nystatin powder 30 gm Btl 1 APPLIC TOPICAL ×2 (04:47→17:10)
[2025-03-19] MEDS: HYDROcodone-acetaminophen 5-325 mg Tablet 1 TAB PO ×4 (04:47→21:49)
--- NOTE | 2025-03-19 12:00 | P.PN_ITS ---
Subjective 2 Subjective: 03/16/25 Barrett Leahy is a 69 year ol d male w/ pmhx hyperlipidemia, HTN, HLD PAD, failure to thrive, and BPH presents to via EMS from [facility] the ED with c/o worsening redness and swelling to the left foot. Chronic appearing wounds on the first 3 toes of the left foot swelling w/ redness proximal to this on the distal end of the foot. Pulses are noted to be diminished. Patient reports he has had the wounds on his foot for weeks. He reports a 4/10 on pain scale, he denies alleviating factors to help with pain. He denies known fevers, headache, chest pain, shortness of breath, palpitations, N/V/D/C, changes in urinary and bowel habits, and any recent medication changes. He denies patient to be admitted under inpatient status with hospitalist services and podiatry consultation service, and cardiology consultation service for further medical management and care. While in ED a CBC, CMP, ESR, lactic acid, CRP was obtained, reviewed, and results as follows: CBC appears unremarkable. Glucose 144, otherwise CMP unremarkable. Lactic acid 2.2, CRP 32.6, ESR 63. Medications: Vancomycin 2000 mg IV, cefepime 2000 mg IVP, Dilaudid 0.5 mg IVP, Zofran 4 mg IVP, heparin drip titrated per protocol. 03/17/25 Patient status post revascular ization per cardiology. Successful revascularization of ostial SFA. Low back revascularization below the knee, reviewed by podiatry. Surgery on the foot would be futile, not salvageable. Discussed with orthopedic surgery, podiatry, cardiology. Discussed with patient, he agrees with the plan to proceed with left foot amputation. 03/18/25 No events o/n plan for surgery today, has been n.p.o. overnight 03/19/25: Post op day 1. Patient is sitt ing up resting in bed at time of interview. Left leg is wrapped and to be assessed by surgeon today. Patient reports pain is under control and he is able to eat breakfast. Discharge planning for tomorrow if he remains stable. Vitals/I&O/Wt Last Vital Signs Temp 97.9 F 03/19/25 08:00 Pulse 92 03/19/25 11:16 Resp 18 03/19/25 11:05 BP 130/59 03/19/25 08:00 Pulse Ox 92 03/19/25 11:05 O2 Del Method Room Air 03/19/25 11:05 O2 Flow Rate 3 03/18/25 10:59 03/18/25 03/19/25 03/19/25 22:59 06:59 14:59 Intake Total 360 / 2400 1120 / 3520 Output Total 400 / 1200 300 / 1500 Balance -40 / 1200 820 / 2020 Weight last 48 hrs Weight 92.351 kg Weight 98.7 kg Physical Exam 2 Narrative: General: No apparent distress HENMT: normoceophalic Muskuloskeletal: Full ROM Respiratory: Normal respiratory effort, clear to auscultation bilaterally throughout all lung samano, no use of accessory muscles Cardio: No JVD, regular rate, regular rhythm, S1 S2 normal, no murmurs, peripheral pulses 2+ radial palpated bilaterally Neuro: Alert and oriented x4 Psych: Affect normal Skin: Left leg wrapped, dry, intact Urinary Catheter Management: Cruz: Cath Placed During This Visit: yes Reason for Continuing Indwelling Catheter: Assist healing open wound Urinary Catheter Date of Insertion: 03/18/25 Urinary Catheter Time of Insertion: 06:30 Data 03/19/25 02:52 03/19/25 02:52 A&P Assessment and plan 1. Peripheral arterial disease: - With dry gangrene, arterial insufficiency with necrosis of the left lower extremity/toes BPH - 03/16: Aorta with runoff CTA: New, complete occlusion LEFT lower extremity beginning in the proximal femoral artery. The deep profundus remains intact. There is extensive circumferential calcified plaque throughout the LEFT lower extremity arteries. There may be some component of reconstitution but of little significance. Heavily calcified popliteal and infrapopliteal arteries. No significant amount of flow is identified distal LEFT lower extremity. Heavily calcified plaque in the RIGHT femoral artery into the popliteal artery and infrapopliteal arteries. Similar findings as compared to 02/25/2023. The extent of stenosis and occlusions are difficult to quantify due to the heavy calcification in the arteries. Extensive atherosclerosis in the abdominal aorta and mesenteric arteries and renal arteries. - Patient initially stable, no leukocytosis, no signs of infection. Very mild reperfusion seen of the left lower extremity, discussed with podiatry, lower extremity not salvageable even with revascularization. - Cardiology consulted- Kyleigh Lucas NP. Expertise and recommendations appreciated. 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 Bhatt for stent placement. 2. Dry gangrene: - 03/16: Left Foot XR: No evidence of osteomyelitis. - 03/16: Duplex scan lower extremity artery: Probable high-grade stenosis of the proximal SFA. Monophasic waveforms throughout. Minimal if any flow in the posterior tibial. - Blood cultures ordered, pending. - Podiatry consulted-Dr. Padilla. Expertise and recommendations appreciated. - 03/19 Heparin drip discontinued - Fall precautions - Zosyn was discontinued. Vancomycin IV - PT/OT postop assessment - Investigate candidacy for inpatient rehab 3. Hyperlipemia: - Lipid panel; Cholesterol 135, triglycerides 73, LDL 86, HDL low at 34. LDL/HDL ratio 2.53, WNL. Cholesterol/HDL ratio 2.97 WNL. - Continue home medication atorvastatin 40 mg PO dly 4. BPH (benign prostatic hyperplasia): - Continue home medication tamsulosin 0.4 mg PO dly 5. Hyperglycemia: - No diabetes - 144 > 92> 130> 149 - A1c 6.2% - Sliding scale started PDMP PDMP Reviewed: Not Reviewed Attestations 2 Medical Necessity Statement*: Patient expected to stay at additional 2 midnights. He is postop day 1 and has possible planning for discharge tomorrow, 03/20/2025. Diagnoses Peripheral arterial disease I73.9 Dry gangrene I96 Hyperlipemia E78.5 BPH (benign prostatic hyperplasia) N40.0 Hyperglycemia R73.9
[2025-03-19] MEDS: pantoprazole 40 mg SDV IVP (17:10)
[2025-03-20] VITALS (7 sets, daily range): BP systolic 119–164; BP diastolic 56–81; PULSE 82–99; RESP 16–18; TEMP 35.9–36.9; O2SAT 93–100
[2025-03-20] MEDS: HYDROcodone-acetaminophen 5-325 mg Tablet 1 TAB PO (04:39)
[2025-03-20] MEDS: nystatin powder 30 gm Btl 1 APPLIC TOPICAL (05:09)
--- NOTE | 2025-03-20 10:00 | PC.NURSE ---
called surgeon called dr mitch gomez to inform him that pt is going back to [facility] today. Received telephone order for wound care dressing care. per dr mitch gomez to keep the dressing intact until pt sees him in clinic in 1 week.
--- NOTE | 2025-03-20 10:30 | P.DS_ITS ---
Discharge Providers Date of Admission: 03/16/25 11:07 Date of Discharge: March 20, 2025 Attending Provider at Admission: Espinoza Krishnamurthy MD Attending Provider at Discharge: GAGE Wise, GROUND SYSTEMS ENGINEER Consults: Dr. Damir Antonio Diagnoses at Discharge Discharge Diagnosis 1. Peripheral arterial disease: 2. Dry gangrene: 3. Hyperlipidemia, unspecified hyperlipidemia type: 4. BPH (benign prostatic hyperplasia): 5. Hyperglycemia: Other Information Additional DC diagnoses/information: 1. Peripheral arterial disease: - With dry gangrene, arterial insufficiency with necrosis of the left lower extremity/toes BPH - 03/16: Aorta with runoff CTA: New, complete occlusion LEFT lower extremity beginning in the proximal femoral artery. The deep profundus remains intact. There is extensive circumferential calcified plaque throughout the LEFT lower extremity arteries. There may be some component of reconstitution but of little significance. Heavily calcified popliteal and infrapopliteal arteries. No significant amount of flow is identified distal LEFT lower extremity. Heavily calcified plaque in the RIGHT femoral artery into the popliteal artery and infrapopliteal arteries. Similar findings as compared to 02/25/2023. The extent of stenosis and occlusions are difficult to quantify due to the heavy calcification in the arteries. Extensive atherosclerosis in the abdominal aorta and mesenteric arteries and renal arteries. - Patient initially stable, no leukocytosis, no signs of infection. Very mild reperfusion seen of the left lower extremity, discussed with podiatry, lower extremity not salvageable even with revascularization. - Cardiology consulted- Kyleigh Lucas NP. Expertise and recommendations appreciated. - 03/17 quality assurance qa lab analyst; with Dr. Bhatt for stent placement. 2. Dry gangrene: - 03/16: Left Foot XR: No evidence of osteomyelitis. - 03/16: Duplex scan lower extremity artery: Probable high-grade stenosis of the proximal SFA. Monophasic waveforms throughout. Minimal if any flow in the posterior tibial. - Blood cultures ordered, pending. - Podiatry consulted-Dr. Padilla. Expertise and recommendations appreciated. - 03/19 Heparin drip discontinued - Fall precautions - Zosyn was discontinued. Vancomycin IV - PT/OT postop assessment - Patient returning to SNF - Postop day [address] Antonio - Will follow-up in a week with his office - Keep clean dry and intact - Pain management 3. Hyperlipemia: - Lipid panel; Cholesterol 135, triglycerides 73, LDL 86, HDL low at 34. LDL/HDL ratio 2.53, WNL. Cholesterol/HDL ratio 2.97 WNL. - Continue home medication atorvastatin 40 mg PO dly 4. BPH (benign prostatic hyperplasia): - Continue home medication tamsulosin 0.4 mg PO dly 5. Hyperglycemia: - No diabetes - 144 > 92> 130> 149 - A1c 6.2% - Sliding scale while inpatient Reason for Visit Reason for Visit: lower ext pain Hospital Course Hospital Course 03/16/25 Barrett Leahy is a 69 year old male w/ pmhx hyperlipidemia, HTN, HLD PAD, failure to thrive, and BPH presents to via EMS from SNF the ED with c/o worsening redness and swelling to the left foot. Chronic appearing wounds on the first 3 toes of the left foot swelling w/ redness proximal to this on the distal end of the foot. Pulses are noted to be diminished. Patient reports he has had the wounds on his foot for weeks. He reports a 4/10 on pain scale, he denies alleviating factors to help with pain. He denies known fevers, headache, chest pain, shortness of breath, palpitations, N/V/D/C, changes in urinary and bowel habits, and any recent medication changes. He denies patient to be admitted under inpatient status with hospitalist services and podiatry consultation service, and cardiology consultation service for further medical management and care. While in ED a CBC, CMP, ESR, lactic acid, CRP was obtained, reviewed, and results as follows: CBC appears unremarkable. Glucose 144, otherwise CMP unremarkable. Lactic acid 2.2, CRP 32.6, ESR 63. Medications: Vancomycin 2000 mg IV, cefepime 2000 mg IVP, Dilaudid 0.5 mg IVP, Zofran 4 mg IVP, heparin drip titrated per protocol. 03/17/25 Patient status post revascularization per cardiology. Successful revascularization of ostial SFA. Low back revascularization below the knee, reviewed by podiatry. Surgery on the foot would be futile, not salvageable. Discussed with orthopedic surgery, podiatry, cardiology. Discussed with patient, he agrees with the plan to proceed with left foot amputation. 03/18/25 No events o/n plan for surgery today, has been n.p.o. overnight 03/19/25: Post op day 1. Patient is sitting up resting in bed at time of interview. Left leg is wrapped and to be assessed by surgeon today. Patient reports pain is under control and he is able to eat breakfast. Discharge planning for tomorrow if he remains stable. 03/20/25: DC back to SNF today and follow-up with Dr. Antonio's office in 1 week. Pain management. Physical Exam Narrative: General: A&Ox4, even tempered and composed. No apparent distress. HEENT: Normo-cephalic, atraumatic, grossly unremarkable exam Cardio: NSR, normal S1-S2 w/o any murmurs, rubs, or gallops and JVD normal Respiratory: Clear to bilateral upper lobes and crackles to bilateral lower lobes on auscultation GI: Abd soft, non-tender, non-distended, normo-active bowel sounds present Neuro: No sensory deficits, Normal speech Behavior: Appropriate and cooperative Extremities: Patient uses a wheelchair and cannot put weight on the left side. The knee is locked up and does not straighten out. Can put weight on the right side. Ischemic foot with rubor and dry gangrenous changes on the left forefoot. Black eschar to left great toe second toe and third toe. No purulent drainage. Pulses are noted to be diminished. Urinary Catheter Management: Cruz: Cath Placed During This Visit: yes Reason for Continuing Indwelling Catheter: Other Urinary Catheter Date of Insertion: 03/18/25 Urinary Catheter Time of Insertion: 06:30 Discharge Data Studies Completed and Pending Completed Studies During Hospitalization Category Date Time Status CTA runoff [CT angio abd aorta runof [id number]] Stat Cat Scan 03/16/25 10:07 Completed XR foot LT min 3V* [id number] Stat Exams 03/16/25 08:38 [place] [id number] Stat Ultrasound 03/16/25 08:37 Completed Pending at discharge Category Date Time Status LEGAL RESEARCHER request for service Routine Exams 03/17/25 05:11 Taken Blood Culture Stat Lab 03/16/25 10:18 Results Pathology: Surgical [PTH] Routine Pth 03/18/25 07:52 Received Radiology Impressions Duplex Scan Lower Extremity Artery 03/16/25 08:37 IMPRESSION: Probable high-grade stenosis of the proximal SFA. Monophasic waveforms throughout. Minimal if any flow in the posterior tibial. Foot X-Ray 03/16/25 08:38 Impression: No evidence of osteomyelitis. Aorta w/Runoff CTA 03/16/25 10:07 IMPRESSION: 1. New, complete occlusion LEFT lower extremity beginning in the proximal femoral artery. The deep profundus remains intact. 2. There is extensive circumferential calcified plaque throughout the LEFT lower extremity arteries. There may be some component of reconstitution but of little significance. Heavily calcified popliteal and infrapopliteal arteries. No significant amount of flow is identified distal LEFT lower extremity. 3. Heavily calcified plaque in the RIGHT femoral artery into the popliteal artery and infrapopliteal arteries. Similar findings as compared to 02/25/2023. The extent of stenosis and occlusions are difficult to quantify due to the heavy calcification in the arteries. 4. Extensive atherosclerosis in the abdominal aorta and mesenteric arteries and renal arteries. Laboratory Results WBC 8.65 10^3/uL (3.29-11.43) 03/19/25 02:52 RBC 3.33 10^6/uL (3.85-5.65) L 03/19/25 02:52 Hgb 10.00 g/dL (11.27-16.99) L 03/19/25 02:52 Hct 31.9 % (37-53) L 03/19/25 02:52 MCV 95.8 fl (82-101) 03/19/25 02:52 MCH 30.0 pg (27-33) 03/19/25 02:52 MCHC 31.3 g/dL (30-55) 03/19/25 02:52 RDW 13.9 % (12.1-15.1) 03/19/25 02:52 Plt Count 265 10^3/cmm (157-399) 03/19/25 02:52 MPV 8.7 fL (7.4-10.4) 03/19/25 02:52 Neut % (Auto) 74.6 % 03/19/25 02:52 Lymph % (Auto) 17.7 % 03/19/25 02:52 [place] % (Auto) 7.1 % 03/19/25 02:52 Eos % (Auto) 0.2 % 03/19/25 02:52 Baso % (Auto) 0.1 % 03/19/25 02:52 Neut # (Auto) 6.45 10^3/uL (1.8-7.7) 03/19/25 02:52 Lymph # (Auto) 1.5 10^3/uL (0.8-4.8) 03/19/25 02:52 [place] # (Auto) 0.6 10^3/uL (0.2-0.9) 03/19/25 02:52 Eos # (Auto) 0.0 10^3/uL (0.0-0.8) 03/19/25 02:52 Baso # (Auto) 0.0 10^3/uL (0.0-0.1) 03/19/25 02:52 Nucleated RBC % (auto) 0 % 03/19/25 02:52 Nucleated RBCs # 0.0 /100WBC 03/19/25 02:52 ESR 63 mm/hr (0-10) H 03/16/25 08:39 APTT 37.2 SECONDS (23.9-36.7) H D 03/17/25 12:57 Sodium 141 mmol/L (136-145) 03/19/25 02:52 Potassium 4.0 mmol/L (3.5-5.1) 03/19/25 02:52 Chloride 108 mmol/L (98-107) H 03/19/25 02:52 Carbon Dioxide 26 mmol/L (22-29) 03/19/25 02:52 Anion Gap 11.0 (5-19) 03/19/25 02:52 BUN 11 mg/dL (8-23) 03/19/25 02:52 Creatinine 0.6 mg/dL (0.7-1.2) L 03/19/25 02:52 GFR Calculation 134.4 mL/min (90-130) H 03/19/25 02:52 Glucose 149 mg/dL (65-115) H 03/19/25 02:52 POC Glucose 174 mg/dL (70-110) H 03/20/25 08:39 Estimat Average Glucose 131 03/16/25 08:39 Hemoglobin A1c 6.2 % (4.0-6.0) H 03/16/25 08:39 Calculated Osmolality 294 mOsm/kg (285-295) 03/19/25 02:52 Lactic Acid 2.2 mmol/L (0.5-2.2) 03/16/25 08:39 Lactic Acid (Sepsis) 1.6 mmol/L (0.5-2.2) 03/16/25 11:19 Calcium 8.1 mg/dL (8.5-10.5) L 03/19/25 02:52 Magnesium 1.9 mg/dL (1.7-2.3) 03/19/25 02:52 Total Bilirubin 0.5 mg/dL (0.15-1.2) 03/19/25 02:52 AST 21 U/L (0-40) 03/19/25 02:52 ALT 12 U/L (0-41) 03/19/25 02:52 Alkaline Phosphatase 68 U/L (40-130) 03/19/25 02:52 C-Reactive Protein 32.6 mg/L (0.0-4.9) H 03/16/25 08:39 Total Protein 6.4 g/dL (6.6-8.7) L 03/19/25 02:52 Albumin 3.3 g/dL (3.5-5.2) L 03/19/25 02:52 Globulin 3.1 g/dL (1.3-4.6) 03/19/25 02:52 Triglycerides 73 mg/dL (0-150) 03/16/25 08:39 Cholesterol 135 mg/dL (0-200) 03/16/25 08:39 LDL Cholesterol, Calc 86 mg/dL (50-129) 03/16/25 08:39 HDL Cholesterol 34 mg/dL (60-100) L 03/16/25 08:39 LDL/HDL Ratio 2.53 RATIO (0.00-3.22) 03/16/25 08:39 Cholesterol/HDL Ratio 3.97 mg/dL (1.0-5.00) 03/16/25 08:39 Vancomycin Trough 50.8 ug/mL (10-15) H* 03/17/25 18:18 Blood Type O Positive 03/18/25 02:08 Rho(D) Type Rh positive 03/18/25 02:08 Antibody Screen Negative 03/18/25 02:08 Vitals Last Vital Signs Temp 96.7 F L 03/20/25 12:00 Pulse 97 03/20/25 12:00 Resp 17 03/20/25 12:00 BP 142/56 03/20/25 12:00 Pulse Ox 98 03/20/25 12:00 O2 Del Method Room Air 03/20/25 11:46 O2 Flow Rate 3 03/18/25 10:59 Discharge Plan Discharge Patient Disposition: Xfer SNF Condition: Stable Prescriptions: Continued acetaminophen 325 mg Tablet 650 mg PO Q6H PRN (Reason: fever/general discomfort) ketoconazole 2 % shampoo See Rx Instructions .ROUTE .COMPLEX Rx Instructions: Apply to scalp topically as needed for seborrhea capitis on shower days. magnesium hydroxide [Milk of Magnesia] 400 mg/5 mL Suspension 30 ml PO DAILY PRN (Reason: Constipation) tamsulosin 0.4 mg capsule 0.4 mg PO BEDTIME Fleet Enema 19-7 gram/118 mL Enema 118 ml [place] DAILY PRN (Reason: Constipation) nystatin 100,000 unit/gram powder See Rx Instructions .ROUTE .COMPLEX Rx Instructions: Apply to groin bilaterally topically twice daily for candidiasi. clopidogrel 75 mg Tablet 75 mg PO DAILY Qty: 30 0RF albuterol sulfate 90 mcg/actuation aerosol powdr breath activated 3 inh inhalation Q4H PRN (Reason: shortness of breath) Qty: 1 0RF Rx Instructions: until breathing returns to target peak flow/parameters atorvastatin 40 mg tablet 40 mg PO DAILY Qty: 30 0RF Discharge Order = DC NOW: Discharge Order (Routine); Ordered 03/20/25 Ordered By: Chloé Zazueta Referrals: [facility] [Outside] Damir Antonio DO [Physician, Orthopedics] - 03/24/25 1:15 pm Referral Note: KEEP THE DRESSING ON LEFT AKA UNTIL PATIENT SEES THE SURGEON IN HIS CLINIC. Discharge Diet: Advance as tolerated and Usual diet Discharge Activity: Increase activity as tolerated and As per PT/OT instructions Patient Instructions: Peripheral Vascular Stent Placement (DC), Acute Wound Care (DC), Peripheral Vascular Angioplasty (DC), Opioid Safety, Post Anesthesia Care, Patient Portal & Robert Instructions Discharge Attestations Time Spent in Discharge Care*: greater than 30 min Quality Metrics Clinical Quality Measures [ No reported AMI, CVA or VTE this stay] Coding Level of Care Code 02395 Diagnoses Peripheral arterial disease I73.9 Dry gangrene I96 Hyperlipidemia, unspecified hyperlipidemia type E78.5 Hyperlipidemia type: unspecified BPH (benign prostatic hyperplasia) N40.0 Hyperglycemia R73.9
--- NOTE | 2025-03-20 11:59 | PC.SOCIAL ---
IMM Update pg 2 of IMM updated and reviewed w/ patient. Copy provided and copy dated, initialed and placed in chart.
--- NOTE | 2025-03-20 14:10 | PC.NURSE ---
called report to [facility] Report called to staff.
--- NOTE | 2025-03-20 15:04 | P.PN_ITS ---
Subjective 2 Subjective: Patient resting in bed in some pain. Vitals/I&O/Wt Last Vital Signs Temp 96.7 F L 03/20/25 12:00 Pulse 97 03/20/25 12:00 Resp 17 03/20/25 12:00 BP 142/56 03/20/25 12:00 Pulse Ox 98 03/20/25 12:00 O2 Del Method Room Air 03/20/25 11:46 O2 Flow Rate 3 03/18/25 10:59 03/20/25 03/20/25 03/20/25 06:59 14:59 22:59 Intake Total 1000 / 2526.25 Output Total 350 / 750 Balance 650 / 1776.25 Weight last 48 hrs Weight 230 lb 6.129 oz Weight 230 lb 6.129 oz Weight 203 lb 9.6 oz Physical Exam 2 Narrative: Dressing clean dry and intact Urinary Catheter Management: Cruz: Cath Placed During This Visit: yes Reason for Continuing Indwelling Catheter: Other Urinary Catheter Date of Insertion: 03/18/25 Urinary Catheter Time of Insertion: 06:30 Data 03/19/25 02:52 03/19/25 02:52 A&P Assessment and plan 1. Gangrene: Postop day #2 left above-knee amputation DC planning Follow-up Ortho clinic 1 week PDMP PDMP Reviewed: Not Reviewed Attestations 2 Medical Necessity Statement*: Per primary service Coding Level of Care Code Acute Code for Chg Fwd Diagnoses Gangrene I96
--- NOTE | 2025-03-20 15:30 | PC.NURSE ---
transport picked up the pt. all pt's belongings and discharge papers given to [facility] staff.
== END 2025-03-20 15:30 | disposition skilled nursing facility (03) | DRG 241 ==
LOC: ER 17:38 → CSU 19:48
PROVIDERS: Internal Medicine; Orthopaedic Surgery; Admitting Provider Internal Medicine; Emergency Provider Emergency Medicine; Visit Provider Clinical Nurse Specialist Acute Care
PROC: 047L3DZ Dilation of Left Femoral Artery with Intraluminal Device, Percutaneous Approach (ICD-10-PCS; principal; 2025-03-17 10:35)
PROC: 047L3DZ Dilation of Left Femoral Artery with Intraluminal Device, Percutaneous Approach (ICD-10-PCS; 2025-03-17 10:35)
PROC: 0Y6D0Z3 Detachment at Left Upper Leg, Low, Open Approach (ICD-10-PCS; CPT 27590; principal; 2025-03-18 07:00)
DX: I70.262 Atherosclerosis of native arteries of extremities with gangrene, left leg (principal); E78.5 Hyperlipidemia, unspecified; N40.0 Benign prostatic hyperplasia without lower urinary tract symptoms; I10 Essential (primary) hypertension; R73.9 Hyperglycemia, unspecified; R62.7 Adult failure to thrive; Z68.28 Body mass index [BMI] 28.0-28.9, adult; Z79.899 Other long term (current) drug therapy; Z79.02 Long term (current) use of antithrombotics/antiplatelets; Z87.891 Personal history of nicotine dependence; Z99.3 Dependence on wheelchair
CPT/HCPCS: 36415; 36416; 37226; 73630; 75625; 75635; 75710; 80053; 80061; 80202; 82962; 83036; 83605; 83735; 85025; 85347; 85651; 85730; 86140; 86850; 86900; 87040; 88307; 88311; 93926; 94640; 96365; 96366; 96367; 96372; 96375; 97161; 97165; 97530; 99291; C1725; C1769; C1876; C1887; C1894; J0690; J0692; J1100; J1171; J1644; J1815; J2250; J2405; J2470; J2543; J2704; J3010; J3372; J3373; J7030; J7121; J9999; P9045; Q9967

== ENCOUNTER → 2025-03-24 13:27 | Outpatient (BNVA) | payer MEDICARE, MEDICAID, SELFPAY | PROVIDERS: Visit Provider Orthopaedic Surgery | DX: Z98.890 Other specified postprocedural states (principal); Z48.89 Encounter for other specified surgical aftercare | CPT/HCPCS: 99024 ==